=== PATIENT | female | born 1960 | race Caucasian/White ===

== ENCOUNTER 2016-06-05 19:06 | Inpatient (IN) ==
[2016-06-05] MEDS ORDERED: methylPREDNISolone 125 MG/2 ML VIAL IVP ONE (19:15)
[2016-06-05] MEDS ORDERED: Ipratropium/Albuterol Neb 3 ML IH ONE (19:15)
--- NOTE | 2016-06-05 19:19 | Emergency Department Note ---
Disposition Clinical Impression: Acute exacerbation of chronic obstructive airways disease Sepsis Qualifiers: Sepsis type: sepsis due to unspecified organism Qualified Code(s): A41.9 - Sepsis, unspecified organism Disposition: Admitted As Inpatient Condition: Fair SOB HPI - General Chief Complaint: ED Shortness of Breath/Dyspnea Stated Complaint: short of breath Time Seen by Provider: 06/05/16 19:15 Source: patient, family, EMS Mode of arrival: EMS Limitations: no limitations Nursing Notes Reviewed: Yes Vital Signs Reviewed: Yes - History of Present Illness 55-year-old female with a history COPD comes in with a one-week history of increasing shortness of breath. Pt Subjective Complaint: shortness of breath Onset (ago): week(s) Context: recent illness (1) Severity: moderate Consistency/Duration: constant Improves with: oxygen Worsens with: exertion Known history of: COPD Associated symptoms: Reports: fever, cough, wheezing Treatment prior to arrival: oxygen, bronchodilator Cough present: Yes Cough Description: Involuntary Cough Frequency: Intermittent - Related Data Home Medications Medication Instructions Recorded Confirmed Alprazolam [Xanax 1 MG Tablet] 1 mg PO TID 06/05/16 06/05/16 Aripiprazole [Abilify] 5 mg PO DAILY 06/05/16 06/05/16 Atorvastatin [Lipitor] 40 mg PO HS 06/05/16 06/05/16 Budesonide/Formoterol 160/4.5 2 puff IH BIDR 06/05/16 06/05/16 [Symbicort 160/4.5] CloNIDine HCl 0.1 mg PO DAILY PRN 06/05/16 06/05/16 Fluticasone/Vilanterol [Breo 1 each IH DAILY 06/05/16 06/05/16 Ellipta 100-25 Mcg INH] HYDROcodone/Acet 7.5/325 mg [Baird 1 tab PO TID PRN 06/05/16 06/05/16 7.5-325 mg] Lisinopril/Hydrochlorothiazide 1 each PO DAILY 06/05/16 06/05/16 [Zestoretic 20-12.5 mg Tablet] Metoprolol [Lopressor] 25 mg PO BID 06/05/16 06/05/16 Paroxetine [Paxil] 30 mg PO DAILY 06/05/16 06/05/16 Allergies Allergy/AdvReac Type Severity Reaction Status Date / Time No Known Allergies Allergy Verified 10/09/15 18:12 Constitutional: Denies: fever, chills, weakness, weight change Eyes: Denies: eye pain, eye discharge, vision change ENT ED: Denies: ear pain, throat pain, dental pain, hearing loss, epistaxis, congestion, dysphagia Cardiovascular: Denies: chest pain, palpitations, dyspnea on exertion, edema, syncope Respiratory: Reports: cough, wheezes. Denies: dyspnea, hemoptysis, stridor Gastrointestinal: Denies: abdominal pain, nausea, vomiting, diarrhea, constipation, hematemesis, melena, hematochezia Genitourinary: Denies: dysuria, frequency, hematuria, discharge Musculoskeletal: Denies: back pain, neck pain, arthralgia, myalgia Integumentary: Denies: rash, abrasion, lesions Neurological: Denies: headache, weakness, numbness, paresthesias, confusion, abnormal gait, vertigo Psychiatric: Denies: anxiety, depression, suicidal thoughts, homicidal thoughts , auditory hallucinations, visual hallucinations Endocrine: Denies: fatigue Hematological/Lymphatic: Denies: easy bleeding, easy bruising Allergic/Immunologic: Denies: facial swelling, urticaria Past Medical History - Past Medical History Medical history: Reports: COPD, hypertension Psychiatric history: Reports: no psych history - Social History Smoking Status: Former smoker Smokeless Tobacco Status: No Alcohol use: Reports: none Drug use: Reports: none Physical Exam - General Limitations: no limitations General appearance: alert, in no apparent distress - Head Head exam: atraumatic, normocephalic, normal inspection - Eye Eye exam: Present: normal appearance, PERRL, EOMI - ENT ENT exam: normal exam, normal oropharynx, mucous membranes moist - Neck Neck exam: Present: normal inspection, full ROM, trachea midline - Chest Chest inspection: Present: normal inspection, symmetric chest wall rise - Respiratory Respiratory exam: Present: normal lung sounds bilaterally - Cardiovascular Cardiovascular exam: Present: regular rate, normal rhythm, normal heart sounds - Abdominal Exam Abdominal exam: Present: soft, Non-Tender. Absent: tenderness, distention, guarding, rebound, rigidity - Extremities Exam Extremities exam: Present: normal inspection, full ROM. Absent: tenderness, pedal edema - Expanded Lower Extremity Exam Neurovascular/Tendon exam: Absent: motor deficit, sensory deficit, tendon deficit Gait: observed and normal - Back Exam Back exam: Present: normal inspection, full ROM. Absent: tenderness - Neurological Exam Neurological exam: Present: alert, oriented X3 - Psychiatric Psychiatric exam: Present: normal affect, normal mood - Skin Skin exam: Present: warm, dry, intact, normal color Course Vital Signs Temperature 98.9 F 06/05/16 19:08 Pulse Rate 91 06/05/16 19:08 Respiratory Rate 20 06/05/16 19:08 Blood Pressure 83/42 06/05/16 19:08 O2 Sat by Pulse Oximetry 96 06/05/16 19:08 Temperature 98.1 F 06/06/16 07:00 Pulse Rate 53 06/06/16 10:12 Respiratory Rate 18 06/06/16 10:12 Blood Pressure 94/54 06/06/16 10:12 O2 Sat by Pulse Oximetry 100 06/06/16 10:12 Oxygen Delivery Oxygen Delivery Bipap Shortness of Breath/Dyspnea - Lab Data Result diagrams: 06/05/16 19:48 06/06/16 04:37 Lab Results 06/05/16 06/05/16 06/05/16 Range/Units 19:46 19:48 19:48 WBC 34.7 H* (4.3-11.1) K/mcL RBC 3.76 L (3.82-4.97) M/mcL Hgb 11.0 L (11.5-15.4) g/dL Hct 34.6 L (35.3-44.9) % MCV 92.0 (83.0-100.0) fL MCH 29.3 (28.0-33.3) pg MCHC 31.8 (31.6-35.5) g/dL RDW 13.2 (11.5-14.5) % Plt Count 371 (140-400) K/mcL MPV 10.7 (9.4-12.4) fL Seg Neutrophils % 76.0 % Band Neutrophils % 14.0 H (0-4) % Lymphocytes % 2.0 % Monocytes % 8.0 % Neutrophils # 31.2 H (1.6-8.9) K/mcL Lymphocytes # 0.7 (0.6-4.6) K/mcL Monocytes # 2.8 H (0.0-1.3) K/mcL Platelet Estimate Normal (Normal) Large Platelets Present A (Not Present) Polychromasia 1+ A (Not Present) Basophilic Stippling 1+ A (Not Present) Microcytosis Present A (Not Present) PT (9.4-12.1) Seconds INR APTT (26.0-36.0) Seconds ABG pH 7.21 L (7.32-7.45) pH Units ABG pCO2 100 H* (35-45) mmHg ABG pO2 244 H (85-104) mmHg ABG HCO3 40.0 H (21-27) mEQ/L ABG Total CO2 43.1 H (20-26) mEq/L ABG O2 Saturation 100 H (95-98) % ABG Base Excess 9.3 H (-2.0 to 3.0) mEq/L Blood Gas Modality BIPAP Inspired O2 100 % Sodium 136 (136-145) mEq/L Potassium 3.6 (3.5-4.5) mEq/L Chloride 86 L (98-109) mEq/L Carbon Dioxide 36 H (19-29) mEq/L BUN 30 H (7-20) mg/dL Creatinine 1.94 H (0.57-1.11) mg/dL Est GFR ( Amer) 32 L (> 60) Est GFR (Non-Af Amer) 27 L (> 60) BUN/Creatinine Ratio 15 (6-26) Glucose 125 H (70-99) mg/dL POC Glucose (58-89) Calculated Osmolality 290 (280-300) Lactic Acid (0.5-2.2) mmol/L Calcium 10.4 (8.6-10.8) mg/dL Troponin I (0-0.03) ng/mL B-Natriuretic Peptide (0-100) pg/mL 06/05/16 06/05/16 06/05/16 Range/Units 19:48 19:48 19:48 WBC (4.3-11.1) K/mcL RBC (3.82-4.97) M/mcL Hgb (11.5-15.4) g/dL Hct (35.3-44.9) % MCV (83.0-100.0) fL MCH (28.0-33.3) pg MCHC (31.6-35.5) g/dL RDW (11.5-14.5) % Plt Count (140-400) K/mcL MPV (9.4-12.4) fL Seg Neutrophils % % Band Neutrophils % (0-4) % Lymphocytes % % Monocytes % % Neutrophils # (1.6-8.9) K/mcL Lymphocytes # (0.6-4.6) K/mcL Monocytes # (0.0-1.3) K/mcL Platelet Estimate (Normal) Large Platelets (Not Present) Polychromasia (Not Present) Basophilic Stippling (Not Present) Microcytosis (Not Present) PT (9.4-12.1) Seconds INR APTT (26.0-36.0) Seconds ABG pH (7.32-7.45) pH Units ABG pCO2 (35-45) mmHg ABG pO2 (85-104) mmHg ABG HCO3 (21-27) mEQ/L ABG Total CO2 (20-26) mEq/L ABG O2 Saturation (95-98) % ABG Base Excess (-2.0 to 3.0) mEq/L Blood Gas Modality Inspired O2 % Sodium (136-145) mEq/L Potassium (3.5-4.5) mEq/L Chloride (98-109) mEq/L Carbon Dioxide (19-29) mEq/L BUN (7-20) mg/dL Creatinine (0.57-1.11) mg/dL Est GFR ( Amer) (> 60) Est GFR (Non-Af Amer) (> 60) BUN/Creatinine Ratio (6-26) Glucose (70-99) mg/dL POC Glucose (58-89) Calculated Osmolality (280-300) Lactic Acid 1.3 (0.5-2.2) mmol/L Calcium (8.6-10.8) mg/dL Troponin I 0.06 H* (0-0.03) ng/mL B-Natriuretic Peptide 222 H (0-100) pg/mL 06/05/16 06/05/16 06/05/16 Range/Units 19:48 21:27 23:43 WBC (4.3-11.1) K/mcL RBC (3.82-4.97) M/mcL Hgb (11.5-15.4) g/dL Hct (35.3-44.9) % MCV (83.0-100.0) fL MCH (28.0-33.3) pg MCHC (31.6-35.5) g/dL RDW (11.5-14.5) % Plt Count (140-400) K/mcL MPV (9.4-12.4) fL Seg Neutrophils % % Band Neutrophils % (0-4) % Lymphocytes % % Monocytes % % Neutrophils # (1.6-8.9) K/mcL Lymphocytes # (0.6-4.6) K/mcL Monocytes # (0.0-1.3) K/mcL Platelet Estimate (Normal) Large Platelets (Not Present) Polychromasia (Not Present) Basophilic Stippling (Not Present) Microcytosis (Not Present) PT 12.7 H (9.4-12.1) Seconds INR 1.2 APTT 34.6 (26.0-36.0) Seconds ABG pH 7.22 L (7.32-7.45) pH Units ABG pCO2 79 H* D (35-45) mmHg ABG pO2 65 L (85-104) mmHg ABG HCO3 32.3 H (21-27) mEQ/L ABG Total CO2 34.7 H (20-26) mEq/L ABG O2 Saturation 88 L (95-98) % ABG Base Excess 3.3 H (-2.0 to 3.0) mEq/L Blood Gas Modality BIPAP Inspired O2 35 % Sodium (136-145) mEq/L Potassium (3.5-4.5) mEq/L Chloride (98-109) mEq/L Carbon Dioxide (19-29) mEq/L BUN (7-20) mg/dL Creatinine (0.57-1.11) mg/dL Est GFR ( Amer) (> 60) Est GFR (Non-Af Amer) (> 60) BUN/Creatinine Ratio (6-26) Glucose (70-99) mg/dL POC Glucose 153 H (58-89) Calculated Osmolality (280-300) Lactic Acid (0.5-2.2) mmol/L Calcium (8.6-10.8) mg/dL Troponin I (0-0.03) ng/mL B-Natriuretic Peptide (0-100) pg/mL 06/06/16 Range/Units 01:14 WBC (4.3-11.1) K/mcL RBC (3.82-4.97) M/mcL Hgb (11.5-15.4) g/dL Hct (35.3-44.9) % MCV (83.0-100.0) fL MCH (28.0-33.3) pg MCHC (31.6-35.5) g/dL RDW (11.5-14.5) % Plt Count (140-400) K/mcL MPV (9.4-12.4) fL Seg Neutrophils % % Band Neutrophils % (0-4) % Lymphocytes % % Monocytes % % Neutrophils # (1.6-8.9) K/mcL Lymphocytes # (0.6-4.6) K/mcL Monocytes # (0.0-1.3) K/mcL Platelet Estimate (Normal) Large Platelets (Not Present) Polychromasia (Not Present) Basophilic Stippling (Not Present) Microcytosis (Not Present) PT (9.4-12.1) Seconds INR APTT (26.0-36.0) Seconds ABG pH 7.20 L* (7.32-7.45) pH Units ABG pCO2 92 H* (35-45) mmHg ABG pO2 40 L* (85-104) mmHg ABG HCO3 36.0 H (21-27) mEQ/L ABG Total CO2 38.8 H (20-26) mEq/L ABG O2 Saturation 62 L (95-98) % ABG Base Excess 5.9 H (-2.0 to 3.0) mEq/L Blood Gas Modality BIPAP Inspired O2 35 % Sodium (136-145) mEq/L Potassium (3.5-4.5) mEq/L Chloride (98-109) mEq/L Carbon Dioxide (19-29) mEq/L BUN (7-20) mg/dL Creatinine (0.57-1.11) mg/dL Est GFR ( Amer) (> 60) Est GFR (Non-Af Amer) (> 60) BUN/Creatinine Ratio (6-26) Glucose (70-99) mg/dL POC Glucose (58-89) Calculated Osmolality (280-300) Lactic Acid (0.5-2.2) mmol/L Calcium (8.6-10.8) mg/dL Troponin I (0-0.03) ng/mL B-Natriuretic Peptide (0-100) pg/mL
[2016-06-05 19:54] LABS: ABG Base Excess 9.3 mEq/L (-2.0 to 3.0); ABG Oxygen Saturation 100 % (95-98); ABG PH 7.21 pH Units (7.32-7.45); ABG PO2 244 mmHg (85-104); ABG TCO2 43.1 mEq/L (20-26)
[2016-06-05 19:54] LABS: Hematocrit 34.6 % (35.3-44.9); Mean Corpuscular HGB Conc 31.8 g/dL (31.6-35.5); Mean Corpuscular Hemoglobin 29.3 pg (28.0-33.3); Mean Platelet Volume 10.7 fL (9.4-12.4); Platelet Count 371 K/mcL (140-400); Red Blood Count 3.76 M/mcL (3.82-4.97); Red Cell Distribution Width 13.2 % (11.5-14.5)
[2016-06-05] MEDS ORDERED: 0.9 % Sodium Chloride 1,000 ML IVC ONE ×2 (19:54→20:42)
[2016-06-05 19:56] LABS: Blood Gas FiO2 100 %
[2016-06-05 19:57] LABS: ABG PCO2 100 mmHg (35-45)
[2016-06-05 19:57] LABS: INR 1.2; Prothrombin Time 12.7 Seconds (9.4-12.1)
[2016-06-05 20:00] LABS: Activated Partial Thrombo Time 34.6 Seconds (26.0-36.0)
[2016-06-05 20:05] LABS: Calcium 10.4 mg/dL (8.6-10.8); Potassium 3.6 mEq/L (3.5-4.5)
[2016-06-05] MEDS ORDERED: Azithromycin 500 MG in D5% in Water 250 ML IVPB STA (20:14)
[2016-06-05 20:19] LABS: Lymphocytes # 0.7 K/mcL (0.6-4.6); Monocytes # 2.8 K/mcL (0.0-1.3); Neutrophils # 31.2 K/mcL (1.6-8.9)
[2016-06-05 20:20] LABS: Basophilic Stippling 1+ (Not Present); Large Platelets Present (Not Present); Microcytosis Present (Not Present); Platelet Estimate Normal (Normal)
[2016-06-05 20:21] LABS: Polychromasia 1+ (Not Present)
--- NOTE | 2016-06-05 20:30 | Emergency Department Note ---
Disposition Clinical Impression: Acute exacerbation of chronic obstructive airways disease Sepsis Qualifiers: Sepsis type: sepsis due to unspecified organism Qualified Code(s): A41.9 - Sepsis, unspecified organism Disposition: Admitted As Inpatient Condition: Fair SOB HPI - General Chief Complaint: ED Shortness of Breath/Dyspnea Stated Complaint: short of breath Time Seen by Provider: 06/05/16 19:15 Source: patient, family, EMS Mode of arrival: EMS Limitations: no limitations Nursing Notes Reviewed: Yes Vital Signs Reviewed: Yes - History of Present Illness 55-year-old female history of oxygen-dependent COPD who presents to the ER with chief complaint of shortness of breath. Patient arrives by private vehicle. Patient was found to be unstable presentation with her blood pressure in the 70/ 40 range. Patient was drowsy at this time but was alert with physical and verbal stimuli. She reports that she has been short of breath for 1 month. Patient wears oxygen continuously at home. She reports a cough with productive sputum. No fevers that she knows of at home. No chest pain. No recent hospitalizations. No other complaints. Pt Subjective Complaint: shortness of breath Onset (ago): month(s) (1) Context: recent illness Severity: moderate Consistency/Duration: constant Improves with: oxygen Worsens with: exertion Known history of: COPD Associated symptoms: Reports: fever, cough, wheezing Treatment prior to arrival: oxygen, bronchodilator Cough present: Yes Cough Description: Involuntary Cough Frequency: Intermittent Sputum production: Yes Sputum Amount: Small Sputum Color: Yellow - Related Data Home oxygen amount: 2 liters Home Medications Medication Instructions Recorded Confirmed Alprazolam [Xanax 1 MG Tablet] 1 mg PO TID 06/05/16 06/05/16 Aripiprazole [Abilify] 5 mg PO DAILY 06/05/16 06/05/16 Atorvastatin [Lipitor] 40 mg PO HS 06/05/16 06/05/16 Budesonide/Formoterol 160/4.5 2 puff IH BIDR 06/05/16 06/05/16 [Symbicort 160/4.5] CloNIDine HCl 0.1 mg PO DAILY PRN 06/05/16 06/05/16 Fluticasone/Vilanterol [Breo 1 each IH DAILY 06/05/16 06/05/16 Ellipta 100-25 Mcg INH] HYDROcodone/Acet 7.5/325 mg [Henderson 1 tab PO TID PRN 06/05/16 06/05/16 7.5-325 mg] Lisinopril/Hydrochlorothiazide 1 each PO DAILY 06/05/16 06/05/16 [Zestoretic 20-12.5 mg Tablet] Metoprolol [Lopressor] 25 mg PO BID 06/05/16 06/05/16 Paroxetine [Paxil] 30 mg PO DAILY 06/05/16 06/05/16 Allergies Allergy/AdvReac Type Severity Reaction Status Date / Time No Known Allergies Allergy Verified 10/09/15 18:12 All systems ED: reviewed and negative except as stated. Constitutional: Reports: fever, weakness Cardiovascular: Reports: dyspnea on exertion. Denies: chest pain Respiratory: Reports: cough, dyspnea, wheezes Gastrointestinal: Denies: abdominal pain, nausea, vomiting, diarrhea Genitourinary: Denies: dysuria Past Medical History - Past Medical History Attestation: Yes The following information was validated with the patient. Source: patient, old records reviewed Medical history: Reports: COPD, hypertension Surgical history: Reports: non-contributory Psychiatric history: Reports: no psych history - Social History Smoking Status: Former smoker Smokeless Tobacco Status: No Alcohol use: Reports: none Drug use: Reports: none Physical Exam - General Limitations: no limitations General appearance: alert, in distress - Head Head exam: atraumatic, normocephalic, normal inspection - Eye Eye exam: Present: normal appearance, EOMI - ENT ENT exam: normal exam - Neck Neck exam: Present: normal inspection - Chest Chest inspection: Present: normal inspection, symmetric chest wall rise - Respiratory Respiratory exam: Present: other (Course breath sounds bilaterally.) - Cardiovascular Cardiovascular exam: Present: regular rate, normal rhythm, normal heart sounds - Abdominal Exam Abdominal exam: Present: soft, Non-Tender. Absent: tenderness - Extremities Exam Extremities exam: Present: normal inspection, full ROM - Expanded Upper Extremity Exam Shoulder exam: Present: normal inspection, full ROM Arm exam: Present: normal inspection, full ROM Elbow exam: Present: normal inspection, full ROM Forearm/Wrist exam: Present: normal inspection, full ROM Hand exam: Present: normal inspection, full ROM - Expanded Lower Extremity Exam Hip/Pelvis exam: Present: normal inspection, full ROM Upper leg exam: Present: normal inspection, full ROM Knee exam: Present: normal inspection, full ROM Lower leg exam: Present: normal inspection, full ROM Ankle exam: Present: normal inspection, full ROM Foot/toe exam: Present: normal inspection, full ROM - Neurological Exam Neurological exam: Present: alert - Psychiatric Psychiatric exam: Present: normal affect, normal mood - Skin Skin exam: Present: warm, dry, intact, normal color Course Course Narrative: Patient seen and examined. Vital signs reviewed. She presents hypotensive. She has poor peripheral access. A peripheral IV was placed under ultrasound guidance emergently for access. Patient continued to have escalating decline in her hypotension so an emergent central line was placed after patient was consented. Patient currently receiving BiPAP, steroids and DuoNeb treatments. We will check EKG, chest x-ray, labs including blood cultures and lactate. Continue to monitor closely. - Reevaluation(s) Reevaluation #1: Patient's blood pressure 100/60 after first liter of fluids and with the second one running. We are covering her with the sepsis bundle for home and area associated infections. Continue to monitor closely. Reevaluation #2: Reevaluation. Her blood pressure has improved. Patient still awakens to verbal stimuli. Discussed with her that we would admit her to the hospital. Time: 22:09 Vital Signs Temperature 98.9 F 06/05/16 19:08 Pulse Rate 91 06/05/16 19:08 Respiratory Rate 20 06/05/16 19:08 Blood Pressure 83/42 06/05/16 19:08 O2 Sat by Pulse Oximetry 96 06/05/16 19:08 Temperature 98.9 F 06/05/16 19:08 Pulse Rate 76 06/05/16 22:49 Respiratory Rate 23 06/05/16 23:46 Blood Pressure 78/42 06/05/16 23:46 O2 Sat by Pulse Oximetry 96 06/05/16 22:49 Oxygen Delivery Oxygen Delivery Bipap Procedures - Central Line Placement Right IJ Central Line Inserted*: Yes Central Line Insertion: emergent Consent Obtained: written consent Procedural Pause: verify patient name and date of , timeout performed per policy, mathieu and assess the site, assemble equipment and verify supplies, perform hand hygiene Patient Placed on Monitor/Pulse Ox: Yes During the Procedure: clinician is wearing sterile gloves, cap, mask,& gown during insertion, sterile field and sterile technique are maintained, patient's face is covered with drape or mask and wearing a cap, everyone in room is wearing a mask Central Line Prep: Chlorhexidine scrub Prep the Procedure Site: apply chloraprep to the skin using a back and forth scrubbing motion, apply chloraprep for 30 seconds (upper body), 1-2 min ( femoral sites), drape the patient with a full body drape Local Anesthetic: lidocaine 1% Amount of anesthesia used (mL): 4 Ultrasound Used for Placement: Yes Central Line Lumen Inserted: triple Post Procedure: sutured in place, good blood return, all ports aspirated, flushed, capped, sterile dressing applied, guide wire removed and visualized Post Procedure X-Ray: tip of catheter in good position, no pneumothorax seen Patient Tolerated Procedure: well Shortness of Breath/Dyspnea - [facility] Narrative Medical decision making narrative: 55-year-old female presents to the ER due to dyspnea. Has been going on for months but worsened over the last few days. She was initially hypotensive here requiring central line placement due to poor peripheral access. Patient was placed on BiPAP. Patient is guarding her airway. Her EKG is sinus rhythm. Chest x-ray shows no acute abnormality as per radiology read. She does have profound leukocytosis of 34.7. She does also have a KI with a creatinine of 1.9. Troponin elevated at 0.06. Patient given 2 L normal saline. Also gave her vein and Zosyn for coverage. Blood cultures and lactate obtained which lactate was normal. Admitted to the ICU. - Lab Data Lab results reviewed: Yes I reviewed the patient's lab results. Result diagrams: 06/05/16 19:48 06/05/16 19:48 Lab Results 06/05/16 06/05/16 06/05/16 Range/Units 19:46 19:48 19:48 WBC 34.7 H* (4.3-11.1) K/mcL RBC 3.76 L (3.82-4.97) M/mcL Hgb 11.0 L (11.5-15.4) g/dL Hct 34.6 L (35.3-44.9) % MCV 92.0 (83.0-100.0) fL MCH 29.3 (28.0-33.3) pg MCHC 31.8 (31.6-35.5) g/dL RDW 13.2 (11.5-14.5) % Plt Count 371 (140-400) K/mcL MPV 10.7 (9.4-12.4) fL Seg Neutrophils % 76.0 % Band Neutrophils % 14.0 H (0-4) % Lymphocytes % 2.0 % Monocytes % 8.0 % Neutrophils # 31.2 H (1.6-8.9) K/mcL Lymphocytes # 0.7 (0.6-4.6) K/mcL Monocytes # 2.8 H (0.0-1.3) K/mcL Platelet Estimate Normal (Normal) Large Platelets Present A (Not Present) Polychromasia 1+ A (Not Present) Basophilic Stippling 1+ A (Not Present) Microcytosis Present A (Not Present) PT (9.4-12.1) Seconds INR APTT (26.0-36.0) Seconds ABG pH 7.21 L (7.32-7.45) pH Units ABG pCO2 100 H* (35-45) mmHg ABG pO2 244 H (85-104) mmHg ABG HCO3 40.0 H (21-27) mEQ/L ABG Total CO2 43.1 H (20-26) mEq/L ABG O2 Saturation 100 H (95-98) % ABG Base Excess 9.3 H (-2.0 to 3.0) mEq/L Blood Gas Modality BIPAP Inspired O2 100 % Sodium 136 (136-145) mEq/L Potassium 3.6 (3.5-4.5) mEq/L Chloride 86 L (98-109) mEq/L Carbon Dioxide 36 H (19-29) mEq/L BUN 30 H (7-20) mg/dL Creatinine 1.94 H (0.57-1.11) mg/dL Est GFR ( Amer) 32 L (> 60) Est GFR (Non-Af Amer) 27 L (> 60) BUN/Creatinine Ratio 15 (6-26) Glucose 125 H (70-99) mg/dL Calculated Osmolality 290 (280-300) Lactic Acid (0.5-2.2) mmol/L Calcium 10.4 (8.6-10.8) mg/dL Troponin I (0-0.03) ng/mL B-Natriuretic Peptide (0-100) pg/mL 06/05/16 06/05/16 06/05/16 Range/Units 19:48 19:48 19:48 WBC (4.3-11.1) K/mcL RBC (3.82-4.97) M/mcL Hgb (11.5-15.4) g/dL Hct (35.3-44.9) % MCV (83.0-100.0) fL MCH (28.0-33.3) pg MCHC (31.6-35.5) g/dL RDW (11.5-14.5) % Plt Count (140-400) K/mcL MPV (9.4-12.4) fL Seg Neutrophils % % Band Neutrophils % (0-4) % Lymphocytes % % Monocytes % % Neutrophils # (1.6-8.9) K/mcL Lymphocytes # (0.6-4.6) K/mcL Monocytes # (0.0-1.3) K/mcL Platelet Estimate (Normal) Large Platelets (Not Present) Polychromasia (Not Present) Basophilic Stippling (Not Present) Microcytosis (Not Present) PT (9.4-12.1) Seconds INR APTT (26.0-36.0) Seconds ABG pH (7.32-7.45) pH Units ABG pCO2 (35-45) mmHg ABG pO2 (85-104) mmHg ABG HCO3 (21-27) mEQ/L ABG Total CO2 (20-26) mEq/L ABG O2 Saturation (95-98) % ABG Base Excess (-2.0 to 3.0) mEq/L Blood Gas Modality Inspired O2 % Sodium (136-145) mEq/L Potassium (3.5-4.5) mEq/L Chloride (98-109) mEq/L Carbon Dioxide (19-29) mEq/L BUN (7-20) mg/dL Creatinine (0.57-1.11) mg/dL Est GFR ( Amer) (> 60) Est GFR (Non-Af Amer) (> 60) BUN/Creatinine Ratio (6-26) Glucose (70-99) mg/dL Calculated Osmolality (280-300) Lactic Acid 1.3 (0.5-2.2) mmol/L Calcium (8.6-10.8) mg/dL Troponin I 0.06 H* (0-0.03) ng/mL B-Natriuretic Peptide 222 H (0-100) pg/mL 06/05/16 06/05/16 Range/Units 19:48 21:27 WBC (4.3-11.1) K/mcL RBC (3.82-4.97) M/mcL Hgb (11.5-15.4) g/dL Hct (35.3-44.9) % MCV (83.0-100.0) fL MCH (28.0-33.3) pg MCHC (31.6-35.5) g/dL RDW (11.5-14.5) % Plt Count (140-400) K/mcL MPV (9.4-12.4) fL Seg Neutrophils % % Band Neutrophils % (0-4) % Lymphocytes % % Monocytes % % Neutrophils # (1.6-8.9) K/mcL Lymphocytes # (0.6-4.6) K/mcL Monocytes # (0.0-1.3) K/mcL Platelet Estimate (Normal) Large Platelets (Not Present) Polychromasia (Not Present) Basophilic Stippling (Not Present) Microcytosis (Not Present) PT 12.7 H (9.4-12.1) Seconds INR 1.2 APTT 34.6 (26.0-36.0) Seconds ABG pH 7.22 L (7.32-7.45) pH Units ABG pCO2 79 H* D (35-45) mmHg ABG pO2 65 L (85-104) mmHg ABG HCO3 32.3 H (21-27) mEQ/L ABG Total CO2 34.7 H (20-26) mEq/L ABG O2 Saturation 88 L (95-98) % ABG Base Excess 3.3 H (-2.0 to 3.0) mEq/L Blood Gas Modality BIPAP Inspired O2 35 % Sodium (136-145) mEq/L Potassium (3.5-4.5) mEq/L Chloride (98-109) mEq/L Carbon Dioxide (19-29) mEq/L BUN (7-20) mg/dL Creatinine (0.57-1.11) mg/dL Est GFR ( Amer) (> 60) Est GFR (Non-Af Amer) (> 60) BUN/Creatinine Ratio (6-26) Glucose (70-99) mg/dL Calculated Osmolality (280-300) Lactic Acid (0.5-2.2) mmol/L Calcium (8.6-10.8) mg/dL Troponin I (0-0.03) ng/mL B-Natriuretic Peptide (0-100) pg/mL - Radiology Data Radiology results reviewed: Yes I reviewed the patient's radiology results. Chest X-Ray 06/05/16 19:15 IMPRESSION: 1. Right internal jugular central venous catheter in proper position, tip overlying the SVC, no evidence of a pneumothorax. 2. No acute cardiopulmonary disease. D/ / 06/05/2016 20:45:54 Arcenio Camacho MD / Chrissie Wakefield Interpreting Provider: Arcenio Camacho MD - EKG Data EKG attestation: Yes I reviewed and interpreted this EKG. EKG results narrative: EKG demonstrates normal sinus rhythm with a rate of 87 bpm. Normal axis. AL interval 131 QRS duration [address] elevations or depressions. No acute ischemic findings. S.B.AVy - S.iNck.Farrukh Situation: Demographics, MOA Background: Presenting Complaint, Relevant PMH, Meds, & Allergies Assessment: Vital Signs, Course and respsone to treatment, Exam Concerns, Patient/Family Expectation, Pertinant Lab Results, Outstanding Labs Recommendation: Barrier(s) to disposition, Recommendation based on pending studies, treatments, or consults S.B.AVy Report Given to: Dr. Cami Werner Repor Time: 22:56 Attestation Statement - Attestation Attestation: For this encounter, I have reviewed the resident, REAL ESTATE OFFICE SUPERVISOR, or PA documentation, treatment plan, and medical decision making; and I have had face to face time with this patient. 55-year-old female presents with respiratory distress and altered mental status. Patient was hypotensive on initial evaluation with a systolic blood pressure of 75. A central line was placed as an emergent procedure to control her blood pressure and provide medications. Patient was able to provide some history regarding her case and presentation. She states she has had increased work of breathing over the past month. Initial CO2 level was 100 with a pH of 7.21. Patient was placed on BiPAP after initial evaluation. After 2 L of IV fluid the patient continued to be hypotensive. Levothyroid was ordered and the patient was admitted to the ICU. Patient started on vancomycin and Zosyn for treatment of possible sepsis with a significant leukocytosis. Patient's symptoms are likely secondary to severe COPD exacerbation. Unlikely PE with no history of blood clots and her length of symptoms.
[2016-06-05] MEDS ORDERED: Vancomycin 1,500 MG in D5% in Water 250 ML IVPB STA (20:41)
[2016-06-05] MEDS ORDERED: Piperacillin/Tazobactam 3.375 GM in D5% in Water (Mini-Bag+) 100 ML IVPB ONE (20:41)
[2016-06-05 21:38] LABS: ABG Base Excess 3.3 mEq/L (-2.0 to 3.0); ABG HCO3 32.3 mEQ/L (21-27); ABG Oxygen Saturation 88 % (95-98); ABG PH 7.22 pH Units (7.32-7.45); ABG PO2 65 mmHg (85-104); ABG TCO2 34.7 mEq/L (20-26)
[2016-06-05 21:40] LABS: Blood Gas FiO2 35 %
[2016-06-05 21:41] LABS: ABG PCO2 79 mmHg (35-45)
[2016-06-05] MEDS: Norepinephrine 4 MG in D5% in Water 250 ML IVC SCH (22:50)
[2016-06-05] MEDS ORDERED: 0.9 % Sodium Chloride 1,000 ML ONE (22:52)
[2016-06-06 01:43] LABS: ABG Base Excess 5.9 mEq/L (-2.0 to 3.0); ABG Oxygen Saturation 62 % (95-98); ABG TCO2 38.8 mEq/L (20-26); Blood Gas FiO2 35 %
[2016-06-06 01:45] LABS: ABG PCO2 92 mmHg (35-45); ABG PO2 40 mmHg (85-104)
[2016-06-06] MEDS ORDERED: D5% in Water 1,000 ML IVC PRN (02:41)
[2016-06-06] MEDS ORDERED: Ondansetron 4 MG/2 ML VIAL IVP PRN (02:41)
[2016-06-06] MEDS ORDERED: Dextrose Gel 15 GM PO PRN ×2 (02:41)
[2016-06-06] MEDS ORDERED: Naloxone 0.4 MG/ML INJ IVP PRN (02:41)
[2016-06-06] MEDS ORDERED: *HR* Dextrose 50 % in Water (Syg) 50 ML SYRINGE IVP PRN (02:41)
[2016-06-06] MEDS ORDERED: *HR* LORazepam 2 MG/ML VIAL IVP PRN (02:41)
--- NOTE | 2016-06-06 02:59 | Internal Med History&Physical ---
Date of Encounter: 06/06/16 Time of Encounter: 02:53 Assessment and Plan (1) Respiratory failure Current visit: Yes Status: Acute Patient with underlying COPD admitted due to acute on chronic respiratory failure. Currently mechanically ventilated. Possible right sided pneumonia, continue with antibiotics, follow cultures. Nebulizer therapy. Systemic steroids. Qualifiers: Chronicity: acute on chronic Respiratory failure complication: hypoxia and hypercapnia Qualified Code(s): J96.21 - Acute and chronic respiratory failure with hypoxia; J96.22 - Acute and chronic respiratory failure with hypercapnia (2) Septic shock Current visit: Yes Status: Acute On levophed now. Hypotension and leukocytosis with concomitant pneumonia in setting of patient with severe COPD. ICU care. Significant leukocytosis, unclear if the patient was on steroids prior to admission. Likely due to pneumonia, continue with antibiotics. Normal lactic acid levels, follow trend. Monitor electrolytes and kidney function tests. Needs vancomycin monitoring. Monitor urine output. (3) COPD exacerbation Current visit: Yes Status: Acute Management as above. continue with systemic steroids. (4) Acute kidney injury Current visit: Yes Status: Acute Likely induced by hypotension and shock. Will continue with fluids and will monitor renal function tests. Avoid nephrotoxic agents. Internal Medicine - H&P: HPI Chief complaint: sob Admitted From: Emergency Dept Plans for Post Hospital Care: Home History of present illness: Ms. Mcdonough is a 55 year old female with past medical of copd, ON LONG-TERM OXYGEN THERAPY. Presented to emergency department c/o SOB for about a month. She was drowsy and found to be hypotensive and with leukocytosis in the ED. Was given a dose of both zaosyn and vancomycin along with steroids. Was started on bipap and her ABG got better. For her hypotension she was given fluids and was started on levophed via central line. Lactic acid was 1.3. However she has not got better and her mentation declined along with her ph and her PCO2 increased. She was subsequently intubated in the intensive care unit. Past Med Surg Social Fam HX - Past Medical History Medical history: COPD, hypertension Psychiatric history: no psych history - Past Surgical History Surgical History: non-contributory - Social History Smoking Status: Former smoker Smokeless Tobacco Status: No Alcohol use: none Drug use: none Internal Medicine - H&P: Meds Alprazolam [Xanax 1 MG Tablet] 1 mg PO TID 06/05/16 [History] Aripiprazole [Abilify] 5 mg PO DAILY 06/05/16 [History] Atorvastatin [Lipitor] 40 mg PO HS 06/05/16 [History] Budesonide/Formoterol 160/4.5 [Symbicort 160/4.5] 2 puff IH BIDR 06/05/16 [ History] CloNIDine HCl 0.1 mg PO DAILY PRN 06/05/16 [History] Fluticasone/Vilanterol [Breo Ellipta 100-25 Mcg INH] 1 each IH DAILY 06/05/16 [ History] HYDROcodone/Acet 7.5/325 mg [Diagonal 7.5-325 mg] 1 tab PO TID PRN 06/05/16 [ History] Lisinopril/Hydrochlorothiazide [Zestoretic 20-12.5 mg Tablet] 1 each PO DAILY [History] Metoprolol [Lopressor] 25 mg PO BID 06/05/16 [History] Paroxetine [Paxil] 30 mg PO DAILY 06/05/16 [History] Allergies No Known Allergies Allergy (Verified 10/09/15 18:12) ROS unobtainable: due to mental status All Systems PM: A 10-system review of systems was performed and is negative for pertinent findings except as documented above in the HPI. - Constitutional Vitals: Temp Pulse Resp BP Pulse Ox 97.8 F 74 26 109/52 92 L 06/05/16 23:35 06/06/16 01:05 06/06/16 01:05 06/06/16 01:05 06/06/16 01:05 General appearance: Present: severe distress Exam: intubated, sedated. - Head Head exam: Present: atraumatic, normocephalic - Eye Eye exam: Present: PERRL, conjuntiva pink, sclera anicteric Pupils: Present: PERRL - Neck Neck exam general surgery: Present: supple, trachea midline. Absent: lymphadenopathy - Respiratory Respiratory exam: Present: decreased breath sounds, wheezes. Absent: accessory muscle use, rales, rhonchi - Cardiovascular Cardiovascular exam: Present: RRR, +S1, +S2. Absent: diastolic murmur, gallop, rubs, systolic murmur - GI/Abdominal GI/Abdominal exam: Present: normal bowel sounds, soft, no peritoneal signs. Absent: distended, tenderness - Extremities Exam Extremities exam: Present: warm, radial pulses palpable and symetrical. Absent : calf tenderness, cyanotic, pedal edema - Neurological Exam Neurological exam: Present: no focal deficits. Absent: pronater drift, facial droop, speech deficit - Skin Skin exam: Present: dry, intact Internal Med - H&P Results - Labs CBC & Chem 7: 06/05/16 19:48 06/05/16 19:48 - ABG Interpretation ABG results: 06/06/16 01:14 ABG pH 7.20 L* ABG pCO2 92 H* ABG pO2 40 L* ABG HCO3 36.0 H ABG Total CO2 38.8 H ABG O2 Saturation 62 L ABG Base Excess 5.9 H
[2016-06-06] MEDS ORDERED: Vancomycin (wt based) 1,000 MG VIAL IVPB SCH (03:00)
[2016-06-06] MEDS: FentaNYL (PF) 1,000 MCG in 0.9 % Sodium Chloride 80 ML IVC SCH ×3 (03:07→19:30)
[2016-06-06] MEDS: 0.9 % Sodium Chloride 1,000 ML IVC SCH ×2 (03:09→10:30)
[2016-06-06 04:40] LABS: ABG Base Excess 4.6 mEq/L (-2.0 to 3.0); ABG HCO3 33.4 mEQ/L (21-27); ABG Oxygen Saturation 100 % (95-98); ABG PH 7.24 pH Units (7.32-7.45); ABG PO2 385 mmHg (85-104); ABG TCO2 35.8 mEq/L (20-26)
[2016-06-06 04:49] LABS: ABG PCO2 78 mmHg (35-45); Blood Gas FiO2 70 %
[2016-06-06] MEDS ORDERED: Ipratropium/Albuterol Neb 3 ML IH SCH (05:00)
[2016-06-06 05:21] LABS: Albumin 2.3 g/dL (3.5-5.0); Albumin/Globulin Ratio 0.6 (1.1-2.2); Bilirubin,Total 0.5 mg/dL (0.2-1.2); Calcium 8.9 mg/dL (8.6-10.8); Globulin 4.1 g/dL (2.4-3.5); Potassium 3.6 mEq/L (3.5-4.5); Total Protein 6.4 g/dL (6.0-8.3)
[2016-06-06] MEDS: *HR* Heparin 5,000 UNIT/ML VIAL SQ SCH ×2 (05:49→17:19)
[2016-06-06] MEDS: Insulin LISPRO 300 UNITS/3 ML VIAL SQ SCH ×3 (06:23→18:29)
[2016-06-06] MEDS ORDERED: Magnesium Sulfate 2 GM in D5% in Water 100 ML IVPB ONE (07:30)
[2016-06-06 08:08] LABS: ABG Base Excess 4.6 mEq/L (-2.0 to 3.0); ABG HCO3 32.6 mEQ/L (21-27); ABG Oxygen Saturation 96 % (95-98); ABG PH 7.27 pH Units (7.32-7.45); ABG PO2 93 mmHg (85-104); ABG TCO2 34.8 mEq/L (20-26)
[2016-06-06 08:10] LABS: Blood Gas FiO2 30 %
[2016-06-06 08:11] LABS: ABG PCO2 71 mmHg (35-45)
[2016-06-06] MEDS: Ipratropium/Albuterol Neb 3 ML IH PRN ×3 (08:21→15:36)
[2016-06-06] MEDS ORDERED: *HR* Midazolam HCl 5 MG/5 ML VIAL IVP ONE (08:25)
[2016-06-06] MEDS ORDERED: *HR* Succinylcholine 200 MG/10 ML VIAL IVP ONE (08:25)
[2016-06-06] MEDS ORDERED: *HR* Midazolam HCl 2 MG/2 ML VIAL IV ONE (08:25)
[2016-06-06] MEDS ORDERED: *HR* Etomidate 20 MG/10 ML AMPUL IVP ONE (08:25)
[2016-06-06] MEDS ORDERED: Calcium Gluconate 1,000 MG in D5% in Water 100 ML IVPB PRN (08:33)
--- NOTE | 2016-06-06 08:55 | Pulmonology Consult Note ---
<Marcy Huffman - Last Filed: 06/06/16 11:39> Date of Encounter: 06/06/16 Time of Encounter: 09:25 Assessment and Plan (1) Septic shock Current Visit: Yes Status: Acute Patient presents emergency last night with shortness of breath 1 month and was found to be hypotensive. She was given approximately 3 L of fluid with no response. She had a right IJ placed and was placed on Levothroid. She has been maintaining a map of 65 on the Levothroid. His morning we had increased her Levophed to 5 to maintain his map. She is currently intubated for respiratory distress due to right middle lobe pneumonia and COPD exacerbation. Her initial white blood cell count was 34.7. Her lactate has decreased to 0.8 from 1.3. Her troponins had a spike of 0.06 and are now trending down at 0.04. Patient had a negative nasal flu swab. She had a negative urine Legionella and strep pneumo antigen. echo ( 06/06):LVEF 65% EKG: NSR Plan: Sedation with Versed and fentanyl Patient intubated and on ventilator Levofed to maintain a map of 65 Prednisone 40 mg every 8 Antibiotics: Levaquin, Zosyn RIP panel DVT prophylaxis: Heparin every 12 GI prophylaxis: Protonix 40 daily (2) Respiratory failure Current Visit: Yes Status: Acute Patient currently intubated and sedated and on the ventilator. Plan as above Qualifiers: Chronicity: acute on chronic Respiratory failure complication: hypoxia and hypercapnia Qualified Code(s): J96.21 - Acute and chronic respiratory failure with hypoxia; J96.22 - Acute and chronic respiratory failure with hypercapnia (3) Pneumonia Current Visit: Yes Status: Acute Right middle lobe pneumonia. Plan: Zosyn Levaquin Prednisone 40 mg every 8 Continue to monitor Qualifiers: Pneumonia type: due to unspecified organism Laterality: right Lung location: middle lobe of lung Qualified Code(s): J18.1 - Lobar pneumonia, unspecified organism (4) Acute exacerbation of chronic obstructive airways disease Current Visit: Yes Status: Acute O2 dependent at home. Patient's currently intubated and sedated. Overlying pneumonia over COPD. Plan as above. (5) Acute kidney injury Current Visit: Yes Status: Acute Patient has received approximately 3 L of fluids. Patient is making urine that is clear yellow. Plan: Strict I's and O's We will continue to monitor. (6) DVT prophylaxis Current Visit: Yes Status: Acute Heparin 5000 units every 12. History of Present Illness Consult date: 06/06/16 Requesting physician: Jose Miguel Almanza History of present illness: Patient was seen in the emergency department last night for a 1 month history of shortness of breath. Patient does have a history of COPD and is O2 dependent at home. She was found to be hypotensive with elevated white count of 34.7 on the emergency department. A right IJ was placed and patient was placed on Levophed. She was also placed on BiPAP for her respiratory distress. Subsequently when she was moved to the ICU she was electively intubated. She is on Levophed at 5 mg. This had to be increased this morning due to hypotension. She is sedated with fentanyl and Versed. She has received approximately 3 L of fluid. She has an ejection fraction of 65%. Her creatinine is increased at 1.63. Her GFR is decreased at 33. On her chest x- ray appears as she has a right middle lobe pneumonia. Patient is arousable on the sedation that she is on. She is not breathing over the vent. Her lung sounds are clear on inspiration but have rhonchi throughout on expiration. We will continue to treat patients pneumonia with Zosyn. We will also discontinue the vancomycin and add Levaquin. We will continue the steroids. Past Med Surg Social Fam HX - Past Medical History Medical history: COPD, hypertension Psychiatric history: no psych history - Past Surgical History Surgical History: non-contributory - Social History Smoking Status: Former smoker Smokeless Tobacco Status: No Alcohol use: none Drug use: none Medications and Allergies Alprazolam [Xanax 1 MG Tablet] 1 mg PO TID 06/05/16 [History] Aripiprazole [Abilify] 5 mg PO DAILY 06/05/16 [History] Atorvastatin [Lipitor] 40 mg PO HS 06/05/16 [History] Budesonide/Formoterol 160/4.5 [Symbicort 160/4.5] 2 puff IH BIDR 06/05/16 [ History] CloNIDine HCl 0.1 mg PO DAILY PRN 06/05/16 [History] Fluticasone/Vilanterol [Breo Ellipta 100-25 Mcg INH] 1 each IH DAILY 06/05/16 [ History] HYDROcodone/Acet 7.5/325 mg [[place] 7.5-325 mg] 1 tab PO TID PRN 06/05/16 [ History] Lisinopril/Hydrochlorothiazide [Zestoretic 20-12.5 mg Tablet] 1 each PO DAILY [History] Metoprolol [Lopressor] 25 mg PO BID 06/05/16 [History] Paroxetine [Paxil] 30 mg PO DAILY 06/05/16 [History] Allergies No Known Allergies Allergy (Verified 10/09/15 18:12) ROS unobtainable: due to endotracheal tube All Systems: A 10-system review of systems was performed and is negative for pertinent findings except as documented above in the HPI. Physical Examination Vital Signs: Vital Signs, Last 4 Hours Temp Pulse Resp BP Pulse Ox 06/06/16 08:24 18 65/35 100 06/06/16 07:42 18 70/44 100 06/06/16 07:00 98.1 F 06/06/16 06:00 62 14 102/62 100 06/06/16 05:00 98.1 F 52 14 118/67 100 General appearance: agitated (When aroused from sleep. Otherwise sedated and calm.) Eyes: nonicteric ENT: oropharynx moist Neck: supple, no lymphadenopathy, no JVD Effort: other (Assisted on the ventilator) Inspection: normal Auscultation: bilateral: clear (Inspiration), rhonchi (Throughout on exhalation) Cardiovascular: regular rate and rhythm Gastrointestinal: normoactive bowel sounds, soft, non-distended Integumentary: normal Extremities: no cyanosis, no edema, no clubbing, pink and warm, pulses normal, no ischemia or petechiae Musculoskeletal: no deformities Ventilator Settings Ventilator Settings: Ventilator Settings, Last 8 Hours Ventilator Mode A/C Ventilator Mode A/C Ventilator Mode A/C Ventilator Mode A/C Ventilator Mode A/C Ventilator Mode A/C Ventilator Mode A/C Ventilator Mode A/C Ventilator Tidal Volume 430 Setting Ventilator Tidal Volume 500 Setting Ventilator Tidal Volume 500 Setting Ventilator Tidal Volume 500 Setting Ventilator Tidal Volume 500 Setting Ventilator Tidal Volume 500 Setting Ventilator Tidal Volume 500 Setting Ventilator Tidal Volume 500 Setting Ventilator Respiratory Rate 18 Setting Ventilator Respiratory Rate 14 Setting Ventilator Respiratory Rate 14 Setting Ventilator Respiratory Rate 14 Setting Ventilator Respiratory Rate 14 Setting Ventilator Respiratory Rate 14 Setting Ventilator Respiratory Rate 14 Setting Ventilator Respiratory Rate 14 Setting Actual Respiratory Rate 18 Actual Respiratory Rate 14 Actual Respiratory Rate 14 Actual Respiratory Rate 14 Actual Respiratory Rate 14 Actual Respiratory Rate 14 Actual Respiratory Rate 18 Positive End Expiratory 5 Pressure Positive End Expiratory 5 Pressure Positive End Expiratory 5 Pressure Positive End Expiratory 5 Pressure Positive End Expiratory 5 Pressure Positive End Expiratory 5 Pressure Positive End Expiratory 5 Pressure Positive End Expiratory 5 Pressure Peak Inspiratory Airway 34 Pressure Peak Inspiratory Airway 40 Pressure Peak Inspiratory Airway 38 Pressure Peak Inspiratory Airway 50 Pressure Peak Inspiratory Airway 39 Pressure Peak Inspiratory Airway 38 Pressure Peak Inspiratory Airway 40 Pressure Results - Laboratory Findings CBC and BMP: 06/05/16 19:48 06/06/16 04:37 ABG ABG pH 7.27 pH Units (7.32-7.45) L 06/06/16 07:47 ABG pCO2 71 mmHg (35-45) H* 06/06/16 07:47 ABG pO2 93 mmHg (85-104) 06/06/16 07:47 ABG O2 Saturation 96 % (95-98) 06/06/16 07:47 PT/INR, D-dimer PT 12.7 Seconds (9.4-12.1) H 06/05/16 19:48 Abnormal lab findings: Abnormal lab results WBC 34.7 K/mcL (4.3-11.1) H* 06/05/16 19:48 RBC 3.76 M/mcL (3.82-4.97) L 06/05/16 19:48 Hgb 11.0 g/dL (11.5-15.4) L 06/05/16 19:48 Hct 34.6 % (35.3-44.9) L 06/05/16 19:48 Band Neutrophils % 14.0 % (0-4) H 06/05/16 19:48 Neutrophils # 31.2 K/mcL (1.6-8.9) H 06/05/16 19:48 Monocytes # 2.8 K/mcL (0.0-1.3) H 06/05/16 19:48 Large Platelets Present (Not Present) A 06/05/16 19:48 Polychromasia 1+ (Not Present) A 06/05/16 19:48 Basophilic Stippling 1+ (Not Present) A 06/05/16 19:48 Microcytosis Present (Not Present) A 06/05/16 19:48 PT 12.7 Seconds (9.4-12.1) H 06/05/16 19:48 ABG pH 7.27 pH Units (7.32-7.45) L 06/06/16 07:47 ABG pCO2 71 mmHg (35-45) H* 06/06/16 07:47 ABG HCO3 32.6 mEQ/L (21-27) H 06/06/16 07:47 ABG Total CO2 34.8 mEq/L (20-26) H 06/06/16 07:47 ABG Base Excess 4.6 mEq/L (-2.0 to 3.0) H 06/06/16 07:47 Chloride 96 mEq/L (98-109) L 06/06/16 04:37 Carbon Dioxide 31 mEq/L (19-29) H 06/06/16 04:37 BUN 33 mg/dL (7-20) H 06/06/16 04:37 Creatinine 1.63 mg/dL (0.57-1.11) H 06/06/16 04:37 Est GFR ( Amer) 39 (> 60) L 06/06/16 04:37 Est GFR (Non-Af Amer) 33 (> 60) L 06/06/16 04:37 Glucose 157 mg/dL (70-99) H 06/06/16 04:37 POC Glucose 153 (58-89) H 06/05/16 23:43 Magnesium 1.4 mg/dL (1.6-2.6) L 06/06/16 04:37 AST 36 Units/L (5-34) H 06/06/16 04:37 Alkaline Phosphatase 201 Units/L (38-126) H 06/06/16 04:37 Troponin I 0.06 ng/mL (0-0.03) H* 06/05/16 19:48 B-Natriuretic Peptide 222 pg/mL (0-100) H 06/05/16 19:48 Albumin 2.3 g/dL (3.5-5.0) L 06/06/16 04:37 Globulin 4.1 g/dL (2.4-3.5) H 06/06/16 04:37 Albumin/Globulin Ratio 0.6 (1.1-2.2) L 06/06/16 04:37 - Microbiology Findings Microbiology Findings: Microbiology, Last 48 Hours 06/06/16 04:45 Legionella Antigen - Final Urine,[place] Streptococcus pneumoniae Antigen (M - Final - Diagnostic Findings Additional studies: KUB X-Ray 06/06/16 02:35 IMPRESSION: 1. Nasogastric tube with its tip in the fundus of the stomach. D/ / Jovany Blake MD / Jovany Blake MD Interpreting Provider: Jovany Blake MD Chest X-Ray 06/06/16 02:39 IMPRESSION: 1. Endotracheal tube in satisfactory position. 2. Patchy right midlung density could represent developing pneumonia. D/ / Jovany Blake MD / Jovany Blake MD Interpreting Provider: Jovany Blake MD - Clinical Findings Intake & Output: Intake & Output 06/05/16 06/06/16 06/06/16 23:59 07:59 15:59 Intake Total 257.2 / 270.1 Output Total 500 / 500 Balance -242.8 / -229.9 Consult Discharge Plan - Plan Referrals: Javier Reyes MD [Primary Care Provider] - <Charanjit Jacob W - Last Filed: 06/06/16 13:38> Date of Encounter: 06/06/16 All Systems: A 10-system review of systems was performed and is negative for pertinent findings except as documented above in the HPI. Physical Examination Vital Signs: Vital Signs, Last 4 Hours Temp Pulse Resp BP Pulse Ox 06/06/16 08:24 18 65/35 100 06/06/16 07:42 18 70/44 100 06/06/16 07:00 98.1 F 06/06/16 06:00 62 14 102/62 100 Ventilator Settings Ventilator Settings: Ventilator Settings, Last 8 Hours Ventilator Mode A/C Ventilator Mode A/C Ventilator Mode A/C Ventilator Mode A/C Ventilator Mode A/C Ventilator Mode A/C Ventilator Mode A/C Ventilator Mode A/C Ventilator Tidal Volume 430 Setting Ventilator Tidal Volume 500 Setting Ventilator Tidal Volume 500 Setting Ventilator Tidal Volume 500 Setting Ventilator Tidal Volume 500 Setting Ventilator Tidal Volume 500 Setting Ventilator Tidal Volume 500 Setting Ventilator Tidal Volume 500 Setting Ventilator Respiratory Rate 18 Setting Ventilator Respiratory Rate 14 Setting Ventilator Respiratory Rate 14 Setting Ventilator Respiratory Rate 14 Setting Ventilator Respiratory Rate 14 Setting Ventilator Respiratory Rate 14 Setting Ventilator Respiratory Rate 14 Setting Ventilator Respiratory Rate 14 Setting Actual Respiratory Rate 18 Actual Respiratory Rate 14 Actual Respiratory Rate 14 Actual Respiratory Rate 14 Actual Respiratory Rate 14 Actual Respiratory Rate 14 Actual Respiratory Rate 18 Positive End Expiratory 5 Pressure Positive End Expiratory 5 Pressure Positive End Expiratory 5 Pressure Positive End Expiratory 5 Pressure Positive End Expiratory 5 Pressure Positive End Expiratory 5 Pressure Positive End Expiratory 5 Pressure Positive End Expiratory 5 Pressure Peak Inspiratory Airway 34 Pressure Peak Inspiratory Airway 40 Pressure Peak Inspiratory Airway 38 Pressure Peak Inspiratory Airway 50 Pressure Peak Inspiratory Airway 39 Pressure Peak Inspiratory Airway 38 Pressure Peak Inspiratory Airway 40 Pressure Results - Laboratory Findings CBC and BMP: 06/06/16 12:55 06/06/16 04:37 ABG ABG pH 7.27 pH Units (7.32-7.45) L 06/06/16 07:47 ABG pCO2 71 mmHg (35-45) H* 06/06/16 07:47 ABG pO2 93 mmHg (85-104) 06/06/16 07:47 ABG O2 Saturation 96 % (95-98) 06/06/16 07:47 PT/INR, D-dimer PT 12.7 Seconds (9.4-12.1) H 06/05/16 19:48 Abnormal lab findings: Abnormal lab results WBC 34.7 K/mcL (4.3-11.1) H* 06/05/16 19:48 RBC 3.76 M/mcL (3.82-4.97) L 06/05/16 19:48 Hgb 11.0 g/dL (11.5-15.4) L 06/05/16 19:48 Hct 34.6 % (35.3-44.9) L 06/05/16 19:48 Band Neutrophils % 14.0 % (0-4) H 06/05/16 19:48 Neutrophils # 31.2 K/mcL (1.6-8.9) H 06/05/16 19:48 Monocytes # 2.8 K/mcL (0.0-1.3) H 06/05/16 19:48 Large Platelets Present (Not Present) A 06/05/16 19:48 Polychromasia 1+ (Not Present) A 06/05/16 19:48 Basophilic Stippling 1+ (Not Present) A 06/05/16 19:48 Microcytosis Present (Not Present) A 06/05/16 19:48 PT 12.7 Seconds (9.4-12.1) H 06/05/16 19:48 ABG pH 7.27 pH Units (7.32-7.45) L 06/06/16 07:47 ABG pCO2 71 mmHg (35-45) H* 06/06/16 07:47 ABG HCO3 32.6 mEQ/L (21-27) H 06/06/16 07:47 ABG Total CO2 34.8 mEq/L (20-26) H 06/06/16 07:47 ABG Base Excess 4.6 mEq/L (-2.0 to 3.0) H 06/06/16 07:47 Chloride 96 mEq/L (98-109) L 06/06/16 04:37 Carbon Dioxide 31 mEq/L (19-29) H 06/06/16 04:37 BUN 33 mg/dL (7-20) H 06/06/16 04:37 Creatinine 1.63 mg/dL (0.57-1.11) H 06/06/16 04:37 Est GFR ( Amer) 39 (> 60) L 06/06/16 04:37 Est GFR (Non-Af Amer) 33 (> 60) L 06/06/16 04:37 Glucose 157 mg/dL (70-99) H 06/06/16 04:37 POC Glucose 153 (58-89) H 06/05/16 23:43 Magnesium 1.4 mg/dL (1.6-2.6) L 06/06/16 04:37 AST 36 Units/L (5-34) H 06/06/16 04:37 Alkaline Phosphatase 201 Units/L (38-126) H 06/06/16 04:37 Troponin I 0.06 ng/mL (0-0.03) H* 06/05/16 19:48 B-Natriuretic Peptide 222 pg/mL (0-100) H 06/05/16 19:48 Albumin 2.3 g/dL (3.5-5.0) L 06/06/16 04:37 Globulin 4.1 g/dL (2.4-3.5) H 06/06/16 04:37 Albumin/Globulin Ratio 0.6 (1.1-2.2) L 06/06/16 04:37 - Microbiology Findings Microbiology Findings: Microbiology, Last 48 Hours 06/06/16 04:45 Legionella Antigen - Final Urine,[place] Streptococcus pneumoniae Antigen (M - Final - Clinical Findings Intake & Output: Intake & Output 06/05/16 06/06/16 06/06/16 23:59 07:59 15:59 Intake Total 257.2 / 270.1 Output Total 500 / 500 Balance -242.8 / -229.9 - Attending Attestation I examined this patient and my medical decision-making was reviewed with the METAL BURRER/PA/Advanced Practice Nurse/Resident Physician. I agree with the documented findings, disposition and treatment plan as described except to the extent set forth below. I spent 35min of Critical Care time with this patient. It involved decision making of high complexity to assess, manipulate, and support vital organ system failure and/or to prevent further life threatening deterioration of the patient' s condition. The time involved in the performance of separately reportable procedures was not counted toward critical care time. Patient seen and examined at bedside Labs, radiology, chart personally reviewed. All lines examined without evidence of infection. Neuropsych: Sedated on Vent. Arouses easily no focal deficit Goal TOMÁS = 2-3 Pulm: Hypoxic hypercapnic respiratory failure s/t COPD excerbation from possible PNA.On MV with acceptable Oxygenation but still impaired ventilation with highAcute on Chronic PEEK pressures s/t airways disease. Cont aggressive bronchodilators and IV steroids. Ok for permissive hypercapnea at present. wean Fio2 as possible to goal >88-92% Cards: NSTEMI likely demand. Trend trop. ECHO pending. cardiology consult per results of ECHO. Distributive shock s/t sepsis on Vasopressor. Goal MAP .60 FEN-GI: GI prophylaxis given Renal: mild natalie improving f/u UOP trend ID: Septic shock on ABx On ABx. cultures sent Check Resp Viral Panel Heme/Onc: DVT prohylaxis given Endo: glucose monitored. Integ/MSK: Skin care per ICU protocol CODE: Full
[2016-06-06] MEDS: Piperacillin/Tazobactam 3.375 GM in D5% in Water (Mini-Bag+) 100 ML IVPB SCH ×3 (09:21→23:16)
[2016-06-06] MEDS ORDERED: Aminoglycoside Consult 1 EACH MC ONE (09:22)
[2016-06-06] MEDS: Docusate Oral Soln 100 MG/10 ML UDC GTUBE SCH ×2 (09:22→20:18)
[2016-06-06] MEDS: MethylPREDNISolone 40 MG/ML VIAL IVP SCH ×3 (09:22→23:16)
[2016-06-06] MEDS: Pantoprazole 40 MG VIAL IVPB SCH (09:23)
--- NOTE | 2016-06-06 09:58 | ECHO - Doppler Report ---
Echocardiogram Name: Apolonia Mcdonough Date of Study: 06/06/2016 Date: 1960 Ht: 61.0 in Medical Record#: [id number] Age: 55 Wt: 142.0 lb Gender: Female BSA: 1.63 Order #: [id number] Location: [facility] Room #: [facility] Reading Physician: Bala Lucas MD, [facility] Account Review Specialist: Ivette Cavanaugh RDCS, RVT Ordering Physician: Charanjit Jacob MD Primary Physician: Javier Reyes MD Indications: NSTEMI, Shock Impressions: Normal LV systolic function, LVEF 65%. Normal right ventricular size and function. Mildly dilated left atrium. No significant valvular dysfunction. No evidence of pulmonary hypertension. Left Ventricular Wall Motion: Rest Echo Findings All wall segments showed normal motion. Findings: Study Quality * Technically sub-optimal due to clinical status (supine, on ventilator). ECG Findings * Sinus bradycardia. Left Ventricle * Normal LV systolic function, LVEF 65%. * Normal LV chamber size and wall thickness. * Indeterminate diastolic function. Right Ventricle * Normal right ventricular size and function. Left Atrium * Mildly dilated left atrium. Right Atrium * Normal right atrial size. Aorta * Normally sized aortic root. Pericardium * There is no pericardial effusion present. IVC * The IVC is mildly dilated. Patient on ventilator. Aortic Valve * Aortic valve not well visualized. Appears mildly sclerotic. * No aortic stenosis. * No aortic regurgitation. Mitral Valve * Mild mitral annular calcification. * No mitral stenosis. * Trace mitral regurgitation. Tricuspid Valve * Normal tricuspid valve structure. * No tricuspid stenosis. * Trace tricuspid regurgitation. * No evidence of pulmonary hypertension. Pulmonic Valve * Pulmonic valve not well visualized. * No pulmonic stenosis. * Trace pulmonic regurgitation. History Hypertension Measurements: BP: 102/ 62 2D Normal Values RVIDd: 3.20 cm IVSd: .80 cm 0.6 - 1.0 cm LVIDd: 4.40 cm 3.7 - 5.6 cm LVPWd: .80 cm 0.6 - 1.1 cm LVIDs: 3.00 cm 1.5 - 3.6 cm AO: 2.70 cm < 4.0 cm %FS: 31.80 cm >25 % LA volume: 60 Mitral Valve Peak E:.68 m/sec Peak A:.55 m/sec E/A Ratio:1.2 Tricuspid Valve TV Regurg Peak Grad: 23.00mmHg TV Regurg Peak Yonatan: 2.41m/sec Updated by Bala Lucas MD, [facility] on 06/06/2016 9:52:49 AM electronically signed on 06/06/2016 9:53:15 AM with status of Final Wall Motion Stringer: 1=Normal, 2=Hypokinesis, 3=Akinesis, 4=Dyskinesis, 5=Aneurysmal, 6=Hyperkinetic, X=Not Visualized (Blank)=Missing
[2016-06-06] MEDS ORDERED: Lacri-Lube 3.5 GM TUBE BOTH EYES PRN (11:12)
[2016-06-06] MEDS: Levofloxacin 750 MG/150 ML 750 MG/150 ML BAG IVPB SCH (11:22)
--- NOTE | 2016-06-06 11:59 | Electrocardiograph Report ---
[address] [place], [place] [address] Test Date: 2016-06-05 Pat Name: Apolonia Mcdonough Department: 103 Room: [facility] Gender: F [employer] Installer: GUCCI : 1960 Requested By: Arcadio Key Order Number: [id number] Reading MD: Sergey Mora MD Measurements Intervals [place] Rate: 87 P: 64 NC: 131 QRS: 62 QRSD: 85 T: 39 QT: 380 QTc: 424 Interpretive Statements SINUS RHYTHM LEFT ATRIAL ENLARGEMENT Electronically Signed On 06-06-2016 11:57:16 EDT by Sergey Mora MD
[2016-06-06 12:12] LABS: Adenovirus Not Detected (Not Detect); Bordetella Pertussis Not Detected (Not Detect); Chlamydophila pneumoniae Not Detected (Not Detect); Coronavirus 229E Not Detected (Not Detect); Coronavirus HKU1 Not Detected (Not Detect); Coronavirus NL63 Not Detected (Not Detect); Coronavirus OC43 Not Detected (Not Detect); Human Metapneumovirus Not Detected (Not Detect); Human Rhinovirus/Enterovirus Not Detected (Not Detect); Influenza A Subtype 2009 H1 Not Detected (Not Detect); Influenza A Untypeable Not Detected (Not Detect); Influenza B Not Detected (Not Detect); Mycoplasma pneumoniae Not Detected (Not Detect); Parainfluenza Virus 1 Not Detected (Not Detect); Parainfluenza Virus 2 Not Detected (Not Detect); Parainfluenza Virus 3 Not Detected (Not Detect); Parainfluenza Virus 4 Not Detected (Not Detect); Respiratory Syncytial Virus Not Detected (Not Detect)
[2016-06-06 13:01] LABS: Basophils % 0.1 %; Hematocrit 26.2 % (35.3-44.9); Immature Granulocytes % 0.4 % (0-4); Immature Platelets 5.6 % (1.1-6.1); Lymphocytes # 0.5 K/mcL (0.6-4.6); Lymphocytes % 2.1 %; Mean Corpuscular HGB Conc 31.3 g/dL (31.6-35.5); Mean Corpuscular Hemoglobin 29.2 pg (28.0-33.3); Mean Corpuscular Volume 93.2 fL (83.0-100.0); Mean Platelet Volume 10.6 fL (9.4-12.4); Monocytes # 0.3 K/mcL (0.0-1.3); Monocytes % 1.4 %; Platelet Count 302 K/mcL (140-400); Red Blood Count 2.81 M/mcL (3.82-4.97)
[2016-06-06 13:02] LABS: Hemoglobin 8.2 g/dL (11.5-15.4)
[2016-06-06 13:25] LABS: Platelet Estimate Normal (Normal)
[2016-06-06 13:26] LABS: Basophilic Stippling 1+ (Not Present); Large Platelets Present (Not Present)
[2016-06-06] MEDS ORDERED: 0.9 % Sodium Chloride 500 ML IVC ONE (14:03)
[2016-06-06] MEDS: Norepinephrine 4 MG in D5% in Water 250 ML IVC SCH (15:39)
[2016-06-06] MEDS: Lacri-Lube 3.5 GM TUBE BOTH EYES SCH ×4 (15:45→20:03)
[2016-06-06] MEDS: Chlorhexidine Rinse 15 ML MOUTHWASH MM SCH (20:18)
[2016-06-07] MEDS: Insulin LISPRO 300 UNITS/3 ML VIAL SQ SCH ×4 (01:19→18:16)
[2016-06-07] MEDS: FentaNYL (PF) 1,000 MCG in 0.9 % Sodium Chloride 80 ML IVC SCH ×2 (04:20→19:42)
[2016-06-07 04:21] LABS: Basophils % 0.1 %; Hematocrit 25.4 % (35.3-44.9); Hemoglobin 8.1 g/dL (11.5-15.4); Immature Granulocytes % 0.6 % (0-4); Lymphocytes # 0.6 K/mcL (0.6-4.6); Lymphocytes % 2.4 %; Mean Corpuscular HGB Conc 31.9 g/dL (31.6-35.5); Mean Corpuscular Hemoglobin 29.1 pg (28.0-33.3); Mean Corpuscular Volume 91.4 fL (83.0-100.0); Mean Platelet Volume 10.8 fL (9.4-12.4); Monocytes # 0.5 K/mcL (0.0-1.3); Monocytes % 2.2 %; Neutrophils # 21.7 K/mcL (1.6-8.9); Platelet Count 289 K/mcL (140-400); Red Blood Count 2.78 M/mcL (3.82-4.97); Red Cell Distribution Width 13.1 % (11.5-14.5); Segmented Neutrophils % 94.7 %
[2016-06-07] MEDS: Lacri-Lube 3.5 GM TUBE BOTH EYES SCH ×5 (04:29→19:53)
[2016-06-07 04:44] LABS: Platelet Estimate Normal (Normal)
[2016-06-07 04:46] LABS: BUN/Creatinine Ratio 26 (6-26); Blood Urea Nitrogen 24 mg/dL (7-20); Calcium 9.6 mg/dL (8.6-10.8); Carbon Dioxide 30 mEq/L (19-29); Chloride 100 mEq/L (98-109); Glucose 140 mg/dL (70-99); Magnesium 1.6 mg/dL (1.6-2.6); Osmolality,Calculated 296 (280-300); Sodium 140 mEq/L (136-145); eGFR For African Americans > 60 (> 60); eGFR For Non-African Americans > 60 (> 60)
[2016-06-07] MEDS: *HR* Heparin 5,000 UNIT/ML VIAL SQ SCH ×2 (04:52→17:12)
[2016-06-07 05:34] LABS: ABG Base Excess 9.8 mEq/L (-2.0 to 3.0); ABG HCO3 36.4 mEQ/L (21-27); ABG Oxygen Saturation 88 % (95-98); ABG PCO2 63 mmHg (35-45); ABG PH 7.37 pH Units (7.32-7.45); ABG PO2 57 mmHg (85-104); ABG TCO2 38.3 mEq/L (20-26)
[2016-06-07 05:35] LABS: Blood Gas FiO2 50 %
[2016-06-07] MEDS: Potassium Phosphate 44 MEQ in 0.9 % Sodium Chloride 250 ML IVPB PRN (05:54)
[2016-06-07] MEDS: Magnesium Sulfate 2 GM in D5% in Water 100 ML IVPB PRN (05:54)
--- NOTE | 2016-06-07 07:38 | Pulmonology Progress Note ---
<Charanjit Jacob W - Last Filed: 06/07/16 11:17> Date of Encounter: 06/07/16 Objective PUL Vital signs: Last Vital Signs Temp 98.7 F 06/06/16 23:29 Pulse 73 06/07/16 06:10 Resp 18 06/07/16 07:23 BP 114/79 06/07/16 06:10 Pulse Ox 100 06/07/16 07:23 Ventilator Settings Ventilator Settings: Ventilator Settings, Last 8 Hours Ventilator Mode A/C Ventilator Mode A/C Ventilator Mode A/C Ventilator Mode A/C Ventilator Mode A/C Ventilator Mode A/C Ventilator Mode A/C Ventilator Mode A/C Ventilator Mode A/C Ventilator Mode A/C Ventilator Mode A/C Ventilator Mode A/C Ventilator Tidal Volume 430 Setting Ventilator Tidal Volume 430 Setting Ventilator Tidal Volume 430 Setting Ventilator Tidal Volume 430 Setting Ventilator Tidal Volume 430 Setting Ventilator Tidal Volume 430 Setting Ventilator Tidal Volume 430 Setting Ventilator Tidal Volume 430 Setting Ventilator Tidal Volume 430 Setting Ventilator Tidal Volume 430 Setting Ventilator Tidal Volume 430 Setting Ventilator Tidal Volume 430 Setting Ventilator Respiratory Rate 18 Setting Ventilator Respiratory Rate 18 Setting Ventilator Respiratory Rate 18 Setting Ventilator Respiratory Rate 18 Setting Ventilator Respiratory Rate 18 Setting Ventilator Respiratory Rate 18 Setting Ventilator Respiratory Rate 18 Setting Ventilator Respiratory Rate 18 Setting Ventilator Respiratory Rate 18 Setting Ventilator Respiratory Rate 18 Setting Ventilator Respiratory Rate 18 Setting Ventilator Respiratory Rate 18 Setting Actual Respiratory Rate 18 Actual Respiratory Rate 18 Actual Respiratory Rate 18 Actual Respiratory Rate 18 Actual Respiratory Rate 18 Actual Respiratory Rate 18 Actual Respiratory Rate 18 Actual Respiratory Rate 18 Actual Respiratory Rate 18 Actual Respiratory Rate 18 Actual Respiratory Rate 18 Positive End Expiratory 5 Pressure Positive End Expiratory 5 Pressure Positive End Expiratory 5 Pressure Positive End Expiratory 5 Pressure Positive End Expiratory 5 Pressure Positive End Expiratory 5 Pressure Positive End Expiratory 5 Pressure Positive End Expiratory 5 Pressure Positive End Expiratory 5 Pressure Positive End Expiratory 5 Pressure Positive End Expiratory 5 Pressure Positive End Expiratory 5 Pressure Peak Inspiratory Airway 45 Pressure Peak Inspiratory Airway 42 Pressure Peak Inspiratory Airway 46 Pressure Peak Inspiratory Airway 38 Pressure Peak Inspiratory Airway 41 Pressure Peak Inspiratory Airway 38 Pressure Peak Inspiratory Airway 40 Pressure Peak Inspiratory Airway 36 Pressure Peak Inspiratory Airway 34 Pressure Peak Inspiratory Airway 35 Pressure Peak Inspiratory Airway 37 Pressure Results - Laboratory Findings CBC and BMP: 06/07/16 03:55 06/07/16 03:55 ABG ABG pH 7.37 pH Units (7.32-7.45) 06/07/16 05:24 ABG pCO2 63 mmHg (35-45) H 06/07/16 05:24 ABG pO2 57 mmHg (85-104) L 06/07/16 05:24 ABG O2 Saturation 88 % (95-98) L 06/07/16 05:24 PT/INR, D-dimer PT 12.7 Seconds (9.4-12.1) H 06/05/16 19:48 Abnormal lab findings: Abnormal lab results WBC 22.9 K/mcL (4.3-11.1) H 06/07/16 03:55 RBC 2.78 M/mcL (3.82-4.97) L 06/07/16 03:55 Hgb 8.1 g/dL (11.5-15.4) L 06/07/16 03:55 Hct 25.4 % (35.3-44.9) L 06/07/16 03:55 Band Neutrophils % 14.0 % (0-4) H 06/05/16 19:48 Neutrophils # 21.7 K/mcL (1.6-8.9) H 06/07/16 03:55 Large Platelets Present (Not Present) A 06/06/16 12:55 Polychromasia 1+ (Not Present) A 06/05/16 19:48 Basophilic Stippling 1+ (Not Present) A 06/06/16 12:55 Microcytosis Present (Not Present) A 06/05/16 19:48 PT 12.7 Seconds (9.4-12.1) H 06/05/16 19:48 ABG pCO2 63 mmHg (35-45) H 06/07/16 05:24 ABG pO2 57 mmHg (85-104) L 06/07/16 05:24 ABG HCO3 36.4 mEQ/L (21-27) H 06/07/16 05:24 ABG Total CO2 38.3 mEq/L (20-26) H 06/07/16 05:24 ABG O2 Saturation 88 % (95-98) L 06/07/16 05:24 ABG Base Excess 9.8 mEq/L (-2.0 to 3.0) H 06/07/16 05:24 Potassium 3.0 mEq/L (3.5-4.5) L 06/07/16 03:55 Carbon Dioxide 30 mEq/L (19-29) H 06/07/16 03:55 BUN 24 mg/dL (7-20) H 06/07/16 03:55 Glucose 140 mg/dL (70-99) H 06/07/16 03:55 POC Glucose 130 (58-89) H 06/07/16 06:03 Phosphorus 2.0 mg/dL (2.3-4.7) L 06/07/16 03:55 AST 36 Units/L (5-34) H 06/06/16 04:37 Alkaline Phosphatase 201 Units/L (38-126) H 06/06/16 04:37 Troponin I 0.04 ng/mL (0-0.03) H* 06/06/16 10:35 B-Natriuretic Peptide 222 pg/mL (0-100) H 06/05/16 19:48 Albumin 2.3 g/dL (3.5-5.0) L 06/06/16 04:37 Globulin 4.1 g/dL (2.4-3.5) H 06/06/16 04:37 Albumin/Globulin Ratio 0.6 (1.1-2.2) L 06/06/16 04:37 - Microbiology Findings Microbiology Findings: Microbiology, Last 48 Hours 06/06/16 05:17 Sputum Culture - Preliminary Sputum 06/06/16 04:45 Legionella Antigen - Final Urine,[place] Streptococcus pneumoniae Antigen (M - Final - Clinical Findings Intake & Output: Intake & Output 06/06/16 06/07/16 06/07/16 23:59 07:59 15:59 Intake Total 379.9 / 379.9 345.7 / 345.7 Output Total 1200 / 1200 600 / 600 Balance -820.1 / -820.1 -254.3 / -254.3 Consult Discharge Plan - Plan Referrals: Javier Reyes MD [Primary Care Provider] - - Attending Attestation I examined this patient and my medical decision-making was reviewed with the [employer] E[employer]IPMENT REPAIRER/PA/Advanced Practice Nurse/Resident Physician. I agree with the documented findings, disposition and treatment plan as described except to the extent set forth below. Patient seen and examined at bedside Labs, radiology, chart personally reviewed. All lines examined without evidence of infection. Neuropsych: Generally awake and alert however without stimulation patient has episodes where she falls asleep and is unable to maintain respiratory rate. We are holding all [employer] depressant medications at this time this is probably in manifestation of use of benzodiazepines over the last 24 hours Pulm: Hypoxic hypercapnic respiratory failure s/t COPD excerbation from possible PNA.ready for spontaneous breathing trial when no longer as sleepy. Respiratory mechanics and Oxygenation have improved over the last 24 hours. Continue IV steroids and bronchodilators Cards: NSTEMI likely demand ischemia from hypoxia. Troponin has peaked and echocardiogram suggestive of focal wall motion abnormality FEN-GI: GI prophylaxis given Renal: mild natalie has normalized ID: Septic shock resolved continue antimicrobials pending cultures D escalated 48 hours to treat for commnity acquired pneumonia organisms Heme/Onc: DVT prohylaxis given Endo: glucose monitored. Integ/MSK: Skin care per ICU protocol CODE: Full <Marcy Huffman - Last Filed: 06/07/16 12:56> Date of Encounter: 06/07/16 Time of Encounter: 07:37 Assessment and Plan (1) Septic shock Current Visit: Yes Status: Acute Patient presented to the emergency department 2 nights ago with shortness of breath 1 month and was found to be hypotensive. She was given approximately 3 L of fluid with no response. She had a right IJ placed and was placed on Levothroid. She has been maintaining a map of 65 on the Levofed. She remained on Levophed throughout the day yesterday but was removed last night. She is currently intubated for respiratory distress due to right middle lobe pneumonia and COPD exacerbation. She has failed to CPAP trials today and her sedation has been turned off. She is only on pain management with fentanyl. Her initial white blood cell count was 34.7. Her lactate has decreased to 0.8 from 1.3. Her troponins had a spike of 0.06 and are now trending down at 0.04. Patient had a negative nasal flu swab. She had a negative urine Legionella and strep pneumo antigen. echo ( 06/06):LVEF 65% EKG: NSR RIP panel: Negative Plan: Fentanyl for pain management Patient intubated and on ventilator Prednisone 40 mg every 8 Antibiotics: Levaquin, Zosyn DVT prophylaxis: Heparin every 12 GI prophylaxis: Protonix 40 daily. CPAP trial tomorrow. (2) Respiratory failure Current Visit: Yes Status: Acute Patient currently intubated and on the ventilator. Versed is off. She is only on fentanyl for pain management. She has failed several CPAP trials today as she becomes apneic and goes to sleep. Plan as above Qualifiers: Chronicity: acute on chronic Respiratory failure complication: hypoxia and hypercapnia Qualified Code(s): J96.21 - Acute and chronic respiratory failure with hypoxia; J96.22 - Acute and chronic respiratory failure with hypercapnia (3) Pneumonia Current Visit: Yes Status: Acute Right middle lobe pneumonia. Plan: Zosyn Levaquin Prednisone 40 mg every 8 Continue to monitor Qualifiers: Pneumonia type: due to unspecified organism Laterality: right Lung location: middle lobe of lung Qualified Code(s): J18.1 - Lobar pneumonia, unspecified organism (4) Acute exacerbation of chronic obstructive airways disease Current Visit: Yes Status: Acute O2 dependent at home. Patient's currently intubated and on the ventilator. Overlying right middle lobe pneumonia, complicated by COPD. Plan as above. (5) Acute kidney injury Current Visit: Yes Status: Acute Creatinine is continuing to improve. Patient is continuing to make urine. Plan: Strict I's and O's We will continue to monitor (6) DVT prophylaxis Current Visit: Yes Status: Acute Heparin 5000 units every 12 Subjective Interval history: Patient had no problems overnight. She is still intubated and on fentanyl. She is off of levofed at this time. She is maintaining a map of 60-65 on her own. She has failed two CPAP trials today. She is off sedation. If patient does need sedation throughout the day we will add Precedex. Patient is arousable but appears tired. Her lung sounds are relatively clear. Her kidney function is improving. We will continue CPAP trials tomorrow. Objective PUL Vital signs: Last Vital Signs Temp 98.7 F 06/06/16 23:29 Pulse 73 06/07/16 06:10 Resp 18 06/07/16 07:23 BP 114/79 06/07/16 06:10 Pulse Ox 100 06/07/16 07:23 General appearance: no acute distress, other (Easily arousable but quickly goes back to sleep. Patient is still intubated and on fentanyl only.) Eyes: nonicteric ENT: oropharynx moist Neck: supple Effort: normal Auscultation: bilateral: clear Cardiovascular: regular rate and rhythm Gastrointestinal: normoactive bowel sounds, soft, non-tender, non-distended Integumentary: normal Extremities: no cyanosis, no edema, no clubbing, pink and warm, pulses normal Musculoskeletal: no deformities pupils equal and round, unable to assess due to mental status Ventilator Settings Ventilator Settings: Ventilator Settings, Last 8 Hours Ventilator Mode A/C Ventilator Mode A/C Ventilator Mode A/C Ventilator Mode A/C Ventilator Mode A/C Ventilator Mode A/C Ventilator Mode A/C Ventilator Mode A/C Ventilator Mode A/C Ventilator Mode A/C Ventilator Mode A/C Ventilator Mode A/C Ventilator Mode A/C Ventilator Tidal Volume 430 Setting Ventilator Tidal Volume 430 Setting Ventilator Tidal Volume 430 Setting Ventilator Tidal Volume 430 Setting Ventilator Tidal Volume 430 Setting Ventilator Tidal Volume 430 Setting Ventilator Tidal Volume 430 Setting Ventilator Tidal Volume 430 Setting Ventilator Tidal Volume 430 Setting Ventilator Tidal Volume 430 Setting Ventilator Tidal Volume 430 Setting Ventilator Tidal Volume 430 Setting Ventilator Tidal Volume 430 Setting Ventilator Respiratory Rate 18 Setting Ventilator Respiratory Rate 18 Setting Ventilator Respiratory Rate 18 Setting Ventilator Respiratory Rate 18 Setting Ventilator Respiratory Rate 18 Setting Ventilator Respiratory Rate 18 Setting Ventilator Respiratory Rate 18 Setting Ventilator Respiratory Rate 18 Setting Ventilator Respiratory Rate 18 Setting Ventilator Respiratory Rate 18 Setting Ventilator Respiratory Rate 18 Setting Ventilator Respiratory Rate 18 Setting Ventilator Respiratory Rate 18 Setting Actual Respiratory Rate 18 Actual Respiratory Rate 18 Actual Respiratory Rate 18 Actual Respiratory Rate 18 Actual Respiratory Rate 18 Actual Respiratory Rate 18 Actual Respiratory Rate 18 Actual Respiratory Rate 18 Actual Respiratory Rate 18 Actual Respiratory Rate 18 Actual Respiratory Rate 18 Actual Respiratory Rate 18 Positive End Expiratory 5 Pressure Positive End Expiratory 5 Pressure Positive End Expiratory 5 Pressure Positive End Expiratory 5 Pressure Positive End Expiratory 5 Pressure Positive End Expiratory 5 Pressure Positive End Expiratory 5 Pressure Positive End Expiratory 5 Pressure Positive End Expiratory 5 Pressure Positive End Expiratory 5 Pressure Positive End Expiratory 5 Pressure Positive End Expiratory 5 Pressure Positive End Expiratory 5 Pressure Peak Inspiratory Airway 45 Pressure Peak Inspiratory Airway 42 Pressure Peak Inspiratory Airway 46 Pressure Peak Inspiratory Airway 38 Pressure Peak Inspiratory Airway 41 Pressure Peak Inspiratory Airway 38 Pressure Peak Inspiratory Airway 40 Pressure Peak Inspiratory Airway 36 Pressure Peak Inspiratory Airway 34 Pressure Peak Inspiratory Airway 35 Pressure Peak Inspiratory Airway 37 Pressure Peak Inspiratory Airway 41 Pressure Results - Laboratory Findings CBC and BMP: 06/07/16 03:55 06/07/16 03:55 ABG ABG pH 7.37 pH Units (7.32-7.45) 06/07/16 05:24 ABG pCO2 63 mmHg (35-45) H 06/07/16 05:24 ABG pO2 57 mmHg (85-104) L 06/07/16 05:24 ABG O2 Saturation 88 % (95-98) L 06/07/16 05:24 PT/INR, D-dimer PT 12.7 Seconds (9.4-12.1) H 06/05/16 19:48 Abnormal lab findings: Abnormal lab results WBC 22.9 K/mcL (4.3-11.1) H 06/07/16 03:55 RBC 2.78 M/mcL (3.82-4.97) L 06/07/16 03:55 Hgb 8.1 g/dL (11.5-15.4) L 06/07/16 03:55 Hct 25.4 % (35.3-44.9) L 06/07/16 03:55 Band Neutrophils % 14.0 % (0-4) H 06/05/16 19:48 Neutrophils # 21.7 K/mcL (1.6-8.9) H 06/07/16 03:55 Large Platelets Present (Not Present) A 06/06/16 12:55 Polychromasia 1+ (Not Present) A 06/05/16 19:48 Basophilic Stippling 1+ (Not Present) A 06/06/16 12:55 Microcytosis Present (Not Present) A 06/05/16 19:48 PT 12.7 Seconds (9.4-12.1) H 06/05/16 19:48 ABG pCO2 63 mmHg (35-45) H 06/07/16 05:24 ABG pO2 57 mmHg (85-104) L 06/07/16 05:24 ABG HCO3 36.4 mEQ/L (21-27) H 06/07/16 05:24 ABG Total CO2 38.3 mEq/L (20-26) H 06/07/16 05:24 ABG O2 Saturation 88 % (95-98) L 06/07/16 05:24 ABG Base Excess 9.8 mEq/L (-2.0 to 3.0) H 06/07/16 05:24 Potassium 3.0 mEq/L (3.5-4.5) L 06/07/16 03:55 Carbon Dioxide 30 mEq/L (19-29) H 06/07/16 03:55 BUN 24 mg/dL (7-20) H 06/07/16 03:55 Glucose 140 mg/dL (70-99) H 06/07/16 03:55 POC Glucose 130 (58-89) H 06/07/16 06:03 Phosphorus 2.0 mg/dL (2.3-4.7) L 06/07/16 03:55 AST 36 Units/L (5-34) H 06/06/16 04:37 Alkaline Phosphatase 201 Units/L (38-126) H 06/06/16 04:37 Troponin I 0.04 ng/mL (0-0.03) H* 06/06/16 10:35 B-Natriuretic Peptide 222 pg/mL (0-100) H 06/05/16 19:48 Albumin 2.3 g/dL (3.5-5.0) L 06/06/16 04:37 Globulin 4.1 g/dL (2.4-3.5) H 06/06/16 04:37 Albumin/Globulin Ratio 0.6 (1.1-2.2) L 06/06/16 04:37 - Microbiology Findings Microbiology Findings: Microbiology, Last 48 Hours 06/06/16 05:17 Sputum Culture - Preliminary Sputum 06/06/16 04:45 Legionella Antigen - Final Urine,[place] Streptococcus pneumoniae Antigen (M - Final - Diagnostic Findings Additional studies: KUB X-Ray 06/06/16 02:35 IMPRESSION: 1. Nasogastric tube with its tip in the fundus of the stomach. D/ / Jovany Blake MD / Jovany Blake MD Interpreting Provider: Jovany Blake MD Chest X-Ray 06/07/16 07:36 IMPRESSION: Stable chest. D/ / 06/07/2016 08:12:31 Christopher Bob MD / chuck Interpreting Provider: Christopher Bob MD - Clinical Findings Intake & Output: Intake & Output 06/06/16 06/06/16 06/07/16 15:59 23:59 07:59 Intake Total 1579.9 / 1579.9 379.9 / 379.9 345.7 / 345.7 Output Total 100 / 100 1200 / 1200 600 / 600 Balance 1479.9 / 1479.9 -820.1 / -820.1 -254.3 / -254.3
[2016-06-07] MEDS: Docusate Oral Soln 100 MG/10 ML UDC GTUBE SCH ×2 (09:17→19:53)
[2016-06-07] MEDS: Chlorhexidine Rinse 15 ML MOUTHWASH MM SCH ×2 (09:17→19:53)
[2016-06-07] MEDS: Piperacillin/Tazobactam 3.375 GM in D5% in Water (Mini-Bag+) 100 ML IVPB SCH ×2 (09:18→16:45)
[2016-06-07] MEDS: MethylPREDNISolone 40 MG/ML VIAL IVP SCH ×2 (09:18→16:45)
[2016-06-07] MEDS: Pantoprazole 40 MG VIAL IVPB SCH (09:19)
[2016-06-07] MEDS: Ipratropium/Albuterol Neb 3 ML IH PRN (20:46)
[2016-06-08] MEDS: Piperacillin/Tazobactam 3.375 GM in D5% in Water (Mini-Bag+) 100 ML IVPB SCH ×2 (00:09→08:29)
[2016-06-08] MEDS: MethylPREDNISolone 40 MG/ML VIAL IVP SCH ×3 (00:09→17:15)
[2016-06-08] MEDS: Insulin LISPRO 300 UNITS/3 ML VIAL SQ SCH ×3 (00:10→11:28)
[2016-06-08] MEDS: Lacri-Lube 3.5 GM TUBE BOTH EYES SCH ×4 (00:11→11:24)
[2016-06-08] MEDS: FentaNYL (PF) 1,000 MCG in 0.9 % Sodium Chloride 80 ML IVC SCH ×2 (00:48→04:58)
[2016-06-08] MEDS: Ipratropium/Albuterol Neb 3 ML IH PRN ×2 (02:10→08:02)
[2016-06-08 04:25] LABS: Basophils % 0.1 %; Hematocrit 26.2 % (35.3-44.9); Immature Granulocytes % 0.9 % (0-4); Lymphocytes # 0.4 K/mcL (0.6-4.6); Mean Corpuscular HGB Conc 30.5 g/dL (31.6-35.5); Mean Corpuscular Hemoglobin 28.7 pg (28.0-33.3); Mean Corpuscular Volume 93.9 fL (83.0-100.0); Monocytes # 0.4 K/mcL (0.0-1.3); Monocytes % 2.5 %; Neutrophils # 13.4 K/mcL (1.6-8.9); Platelet Count 279 K/mcL (140-400); Red Blood Count 2.79 M/mcL (3.82-4.97); Red Cell Distribution Width 13.4 % (11.5-14.5); Segmented Neutrophils % 93.5 %
[2016-06-08 04:37] LABS: BUN/Creatinine Ratio 24 (6-26); Blood Urea Nitrogen 22 mg/dL (7-20); Calcium 9.8 mg/dL (8.6-10.8); Carbon Dioxide 36 mEq/L (19-29); Chloride 102 mEq/L (98-109); Glucose 126 mg/dL (70-99); Magnesium 1.8 mg/dL (1.6-2.6); Osmolality,Calculated 305 (280-300); Phosphorous 2.4 mg/dL (2.3-4.7); Potassium 3.3 mEq/L (3.5-4.5); Sodium 145 mEq/L (136-145); eGFR For African Americans > 60 (> 60); eGFR For Non-African Americans > 60 (> 60)
[2016-06-08 05:03] LABS: ABG Base Excess 15.4 mEq/L (-2.0 to 3.0); ABG HCO3 42.9 mEQ/L (21-27); ABG Oxygen Saturation 86 % (95-98); ABG PH 7.36 pH Units (7.32-7.45); ABG PO2 53 mmHg (85-104); ABG TCO2 45.2 mEq/L (20-26)
[2016-06-08 05:04] LABS: ABG PCO2 76 mmHg (35-45); Blood Gas FiO2 30 %
[2016-06-08] MEDS: Magnesium Sulfate 2 GM in D5% in Water 100 ML IVPB PRN (05:11)
[2016-06-08] MEDS: *HR* Heparin 5,000 UNIT/ML VIAL SQ SCH ×2 (05:12→17:20)
[2016-06-08] MEDS: Potassium Phosphate 44 MEQ in 0.9 % Sodium Chloride 250 ML IVPB PRN (05:12)
--- NOTE | 2016-06-08 08:00 | Pulmonology Progress Note ---
<Marcy Huffman - Last Filed: 06/08/16 10:19> Date of Encounter: 06/08/16 Time of Encounter: 07:59 Assessment and Plan (1) Septic shock Current Visit: Yes Status: Acute Patient presented to the emergency department 2 nights ago with shortness of breath 1 month and was found to be hypotensive. She was given approximately 3 L of fluid with no response. She had a right IJ placed and was placed on Levofed. She has been maintaining a map of 65 on the Levofed. She remained on Levophed throughout the day yesterday but was removed last night. She was intubated for respiratory distress due to right middle lobe pneumonia and COPD exacerbation. She has failed to CPAP trials yesterday and her sedation has been turned off. Her initial white blood cell count was 34.7. Her lactate has decreased to 0.8 from 1.3. Her troponins had a spike of 0.06 and are now trending down at 0.04. Patient was subsequently extubated this morning after a successful CPAP trial. She is doing well. Patient had a negative nasal flu swab. She had a negative urine Legionella and strep pneumo antigen. echo ( 06/06):LVEF 65% EKG: NSR RIP panel: Negative Plan: Patient extubated this morning Prednisone 40 mg every 8 Antibiotics: Levaquin, Zosyn DVT prophylaxis: Heparin every 12 GI prophylaxis: Protonix 40 daily. Discharge to floor. (2) Respiratory failure Current Visit: Yes Status: Acute Patient extubated this morning. Plan as above Qualifiers: Chronicity: acute on chronic Respiratory failure complication: hypoxia and hypercapnia Qualified Code(s): J96.21 - Acute and chronic respiratory failure with hypoxia; J96.22 - Acute and chronic respiratory failure with hypercapnia (3) Pneumonia Current Visit: Yes Status: Acute Right middle lobe pneumonia. Plan: Zosyn Levaquin Prednisone 40 mg every 8 Continue to monitor Qualifiers: Pneumonia type: due to unspecified organism Laterality: right Lung location: middle lobe of lung Qualified Code(s): J18.1 - Lobar pneumonia, unspecified organism (4) Acute exacerbation of chronic obstructive airways disease Current Visit: Yes Status: Acute O2 dependent at home. Overlying right middle lobe pneumonia, complicated by COPD. Plan as above. (5) Acute kidney injury Current Visit: Yes Status: Acute Creatinine is continuing to improve. Patient is continuing to make urine. Plan: Strict I's and O's We will continue to monitor (6) DVT prophylaxis Current Visit: Yes Status: Acute Heparin 5000 units every 12 Subjective Interval history: Patient rested well overnight. CPAP trial this morning. Patient was then extubated. She does have some delirium however is able to follow commands. She is in no distress. She has no complaints. We will continue to monitor patient and advance her diet. We will continue antibiotics for her right middle lobe pneumonia. We will transfer patient to the floor this afternoon pending she does well throughout the day. We will make sure not to give any patient any CASTING CARRIER dampening medications. Objective PUL Vital signs: Last Vital Signs Temp 99.1 F 06/08/16 07:46 Pulse 70 06/08/16 06:10 Resp 17 06/08/16 06:19 BP 111/78 06/08/16 06:19 Pulse Ox 91 06/08/16 06:19 General appearance: no acute distress, alert (but confused) Eyes: nonicteric ENT: oropharynx moist Neck: supple Effort: normal Auscultation: left: clear, right: rhonchi (on exhalation) Cardiovascular: regular rate and rhythm Gastrointestinal: normoactive bowel sounds, soft, non-tender Integumentary: normal Extremities: no cyanosis, no edema, no clubbing, pink and warm, pulses normal, no ischemia or petechiae Musculoskeletal: no deformities Gait: normal posture non-focal exam, pupils equal and round, other (Pt confused) mood appropriate, affect normal Ventilator Settings Ventilator Settings: Ventilator Settings, Last 8 Hours Ventilator Mode CPAP Ventilator Mode A/C Ventilator Mode A/C Ventilator Mode A/C Ventilator Mode A/C Ventilator Mode A/C Ventilator Mode A/C Ventilator Mode A/C Ventilator Mode A/C Ventilator Mode A/C Ventilator Mode A/C Ventilator Mode A/C Ventilator Mode A/C Ventilator Tidal Volume 430 Setting Ventilator Tidal Volume 430 Setting Ventilator Tidal Volume 430 Setting Ventilator Tidal Volume 430 Setting Ventilator Tidal Volume 430 Setting Ventilator Tidal Volume 430 Setting Ventilator Tidal Volume 430 Setting Ventilator Tidal Volume 430 Setting Ventilator Tidal Volume 430 Setting Ventilator Tidal Volume 430 Setting Ventilator Tidal Volume 430 Setting Ventilator Tidal Volume 430 Setting Ventilator Respiratory Rate 16 Setting Ventilator Respiratory Rate 16 Setting Ventilator Respiratory Rate 12 Setting Ventilator Respiratory Rate 12 Setting Ventilator Respiratory Rate 12 Setting Ventilator Respiratory Rate 12 Setting Ventilator Respiratory Rate 12 Setting Ventilator Respiratory Rate 12 Setting Ventilator Respiratory Rate 12 Setting Ventilator Respiratory Rate 12 Setting Ventilator Respiratory Rate 12 Setting Ventilator Respiratory Rate 12 Setting Actual Respiratory Rate 14 Actual Respiratory Rate 16 Actual Respiratory Rate 16 Actual Respiratory Rate 12 Actual Respiratory Rate 12 Actual Respiratory Rate 12 Actual Respiratory Rate 12 Actual Respiratory Rate 12 Actual Respiratory Rate 12 Actual Respiratory Rate 12 Actual Respiratory Rate 12 Actual Respiratory Rate 12 Positive End Expiratory 5 Pressure Positive End Expiratory 5 Pressure Positive End Expiratory 5 Pressure Positive End Expiratory 5 Pressure Positive End Expiratory 5 Pressure Positive End Expiratory 5 Pressure Positive End Expiratory 5 Pressure Positive End Expiratory 5 Pressure Positive End Expiratory 5 Pressure Positive End Expiratory 5 Pressure Positive End Expiratory 5 Pressure Positive End Expiratory 5 Pressure Positive End Expiratory 5 Pressure Peak Inspiratory Airway 8 Pressure Peak Inspiratory Airway 31 Pressure Peak Inspiratory Airway 30 Pressure Peak Inspiratory Airway 29 Pressure Peak Inspiratory Airway 29 Pressure Peak Inspiratory Airway 31 Pressure Peak Inspiratory Airway 33 Pressure Peak Inspiratory Airway 35 Pressure Peak Inspiratory Airway 31 Pressure Peak Inspiratory Airway 36 Pressure Peak Inspiratory Airway 34 Pressure Results - Laboratory Findings CBC and BMP: 06/08/16 04:14 06/08/16 04:14 ABG ABG pH 7.36 pH Units (7.32-7.45) 06/08/16 04:50 ABG pCO2 76 mmHg (35-45) H* 06/08/16 04:50 ABG pO2 53 mmHg (85-104) L 06/08/16 04:50 ABG O2 Saturation 86 % (95-98) L 06/08/16 04:50 PT/INR, D-dimer PT 12.7 Seconds (9.4-12.1) H 06/05/16 19:48 Abnormal lab findings: Abnormal lab results WBC 14.3 K/mcL (4.3-11.1) H 06/08/16 04:14 RBC 2.79 M/mcL (3.82-4.97) L 06/08/16 04:14 Hgb 8.0 g/dL (11.5-15.4) L 06/08/16 04:14 Hct 26.2 % (35.3-44.9) L 06/08/16 04:14 MCHC 30.5 g/dL (31.6-35.5) L 06/08/16 04:14 Band Neutrophils % 14.0 % (0-4) H 06/05/16 19:48 Neutrophils # 13.4 K/mcL (1.6-8.9) H 06/08/16 04:14 Lymphocytes # 0.4 K/mcL (0.6-4.6) L 06/08/16 04:14 Large Platelets Present (Not Present) A 06/06/16 12:55 Polychromasia 1+ (Not Present) A 06/05/16 19:48 Basophilic Stippling 1+ (Not Present) A 06/06/16 12:55 Microcytosis Present (Not Present) A 06/05/16 19:48 PT 12.7 Seconds (9.4-12.1) H 06/05/16 19:48 ABG pCO2 76 mmHg (35-45) H* 06/08/16 04:50 ABG pO2 53 mmHg (85-104) L 06/08/16 04:50 ABG HCO3 42.9 mEQ/L (21-27) H 06/08/16 04:50 ABG Total CO2 45.2 mEq/L (20-26) H 06/08/16 04:50 ABG O2 Saturation 86 % (95-98) L 06/08/16 04:50 ABG Base Excess 15.4 mEq/L (-2.0 to 3.0) H 06/08/16 04:50 Potassium 3.3 mEq/L (3.5-4.5) L 06/08/16 04:14 Carbon Dioxide 36 mEq/L (19-29) H 06/08/16 04:14 BUN 22 mg/dL (7-20) H 06/08/16 04:14 Glucose 126 mg/dL (70-99) H 06/08/16 04:14 POC Glucose 128 (58-89) H 06/07/16 23:36 Calculated Osmolality 305 (280-300) H 06/08/16 04:14 AST 36 Units/L (5-34) H 06/06/16 04:37 Alkaline Phosphatase 201 Units/L (38-126) H 06/06/16 04:37 Troponin I 0.04 ng/mL (0-0.03) H* 06/06/16 10:35 B-Natriuretic Peptide 222 pg/mL (0-100) H 06/05/16 19:48 Albumin 2.3 g/dL (3.5-5.0) L 06/06/16 04:37 Globulin 4.1 g/dL (2.4-3.5) H 06/06/16 04:37 Albumin/Globulin Ratio 0.6 (1.1-2.2) L 06/06/16 04:37 - Microbiology Findings Microbiology Findings: Microbiology, Last 48 Hours 06/06/16 05:17 Sputum Culture - Preliminary Sputum 06/06/16 04:45 Legionella Antigen - Final Urine,[place] Streptococcus pneumoniae Antigen (M - Final - Diagnostic Findings Additional studies: KUB X-Ray 06/06/16 02:35 IMPRESSION: 1. Nasogastric tube with its tip in the fundus of the stomach. D/ / Jovany Blake MD / Jovany Blake MD Interpreting Provider: Jovany Blake MD Chest X-Ray 06/07/16 07:36 IMPRESSION: Stable chest. D/ / 06/07/2016 08:12:31 Christopher Bob MD / chuck Interpreting Provider: Christopher Bob MD - Clinical Findings Intake & Output: Intake & Output 06/07/16 06/07/16 06/08/16 15:59 23:59 07:59 Intake Total 360 / 360 158.9 / 158.9 431.3 / 431.3 Output Total 500 / 500 700 / 700 600 / 600 Balance -140 / -140 -541.1 / -541.1 -168.7 / -168.7 Weight 65.8 kg Consult Discharge Plan - Plan Referrals: Javier Reyes MD [Primary Care Provider] - <Charanjit Jacob W - Last Filed: 06/08/16 13:48> Date of Encounter: 06/08/16 Objective PUL Vital signs: Last Vital Signs Temp 97.7 F 06/08/16 12:53 Pulse 97 06/08/16 13:18 Resp 17 06/08/16 12:53 BP 126/70 06/08/16 12:53 Pulse Ox 96 06/08/16 12:53 Ventilator Settings Ventilator Settings: Ventilator Settings, Last 8 Hours Ventilator Mode CPAP Ventilator Mode CPAP Ventilator Mode A/C Ventilator Tidal Volume 430 Setting Ventilator Respiratory Rate 16 Setting Actual Respiratory Rate 16 Actual Respiratory Rate 14 Actual Respiratory Rate 16 Positive End Expiratory 5 Pressure Positive End Expiratory 5 Pressure Positive End Expiratory 5 Pressure Peak Inspiratory Airway 17 Pressure Peak Inspiratory Airway 8 Pressure Peak Inspiratory Airway 31 Pressure Results - Laboratory Findings CBC and BMP: 06/08/16 04:14 06/08/16 04:14 ABG ABG pH 7.36 pH Units (7.32-7.45) 06/08/16 04:50 ABG pCO2 76 mmHg (35-45) H* 06/08/16 04:50 ABG pO2 53 mmHg (85-104) L 06/08/16 04:50 ABG O2 Saturation 86 % (95-98) L 06/08/16 04:50 PT/INR, D-dimer PT 12.7 Seconds (9.4-12.1) H 06/05/16 19:48 Abnormal lab findings: Abnormal lab results WBC 14.3 K/mcL (4.3-11.1) H 06/08/16 04:14 RBC 2.79 M/mcL (3.82-4.97) L 06/08/16 04:14 Hgb 8.0 g/dL (11.5-15.4) L 06/08/16 04:14 Hct 26.2 % (35.3-44.9) L 06/08/16 04:14 MCHC 30.5 g/dL (31.6-35.5) L 06/08/16 04:14 Band Neutrophils % 14.0 % (0-4) H 06/05/16 19:48 Neutrophils # 13.4 K/mcL (1.6-8.9) H 06/08/16 04:14 Lymphocytes # 0.4 K/mcL (0.6-4.6) L 06/08/16 04:14 Large Platelets Present (Not Present) A 06/06/16 12:55 Polychromasia 1+ (Not Present) A 06/05/16 19:48 Basophilic Stippling 1+ (Not Present) A 06/06/16 12:55 Microcytosis Present (Not Present) A 06/05/16 19:48 PT 12.7 Seconds (9.4-12.1) H 06/05/16 19:48 ABG pCO2 76 mmHg (35-45) H* 06/08/16 04:50 ABG pO2 53 mmHg (85-104) L 06/08/16 04:50 ABG HCO3 42.9 mEQ/L (21-27) H 06/08/16 04:50 ABG Total CO2 45.2 mEq/L (20-26) H 06/08/16 04:50 ABG O2 Saturation 86 % (95-98) L 06/08/16 04:50 ABG Base Excess 15.4 mEq/L (-2.0 to 3.0) H 06/08/16 04:50 Potassium 3.3 mEq/L (3.5-4.5) L 06/08/16 04:14 Carbon Dioxide 36 mEq/L (19-29) H 06/08/16 04:14 BUN 22 mg/dL (7-20) H 06/08/16 04:14 Glucose 126 mg/dL (70-99) H 06/08/16 04:14 POC Glucose 128 (58-89) H 06/07/16 23:36 Calculated Osmolality 305 (280-300) H 06/08/16 04:14 AST 36 Units/L (5-34) H 06/06/16 04:37 Alkaline Phosphatase 201 Units/L (38-126) H 06/06/16 04:37 Troponin I 0.04 ng/mL (0-0.03) H* 06/06/16 10:35 B-Natriuretic Peptide 222 pg/mL (0-100) H 06/05/16 19:48 Albumin 2.3 g/dL (3.5-5.0) L 06/06/16 04:37 Globulin 4.1 g/dL (2.4-3.5) H 06/06/16 04:37 Albumin/Globulin Ratio 0.6 (1.1-2.2) L 06/06/16 04:37 - Microbiology Findings Microbiology Findings: Microbiology, Last 48 Hours 06/06/16 05:17 Sputum Culture - Preliminary Sputum - Clinical Findings Intake & Output: Intake & Output 06/07/16 06/08/16 06/08/16 23:59 07:59 15:59 Intake Total 158.9 / 158.9 536.3 / 536.3 Output Total 700 / 700 600 / 600 150 / 150 Balance -541.1 / -541.1 -63.7 / -63.7 -150 / -150 Weight 65.8 kg - Attending Attestation I examined this patient and my medical decision-making was reviewed with the CAMPUS AIDE/PA/Advanced Practice Nurse/Resident Physician. I agree with the documented findings, disposition and treatment plan as described except to the extent set forth below. Patient seen and examined at bedside Labs, radiology, chart personally reviewed. All lines examined without evidence of infection. Neuropsych: delirum noted today without focal deficit. Avoid CASTING CARRIER depressants. Reestablish sleep wake cycle Pulm: CAP with COPD exacerbation leading to toxic hypercapnic respiratory failure now liberated from the ventilator and doing well weaned to nasal cannula oxygen to keep saturations greater than 88-92% continue bronchodilators okay to transition from IV to enteral steroids to complete 2 week taper Cards: Supply demand ischemia now resolved echo without wall motion abnormalities continue to monitor FEN-GI: Advance diet as tolerated once bedside swallo evaluation has been passed. Renal: Stephy has resolved ID: Septic shock secondary to pneumonia now resolved. Treat for CAP - levaquin x 7 days stop Pip/Og f/u cultures Heme/Onc: DVT prophylaxis given Endo: Glucose monitored Integ/MSK: skin care per routine CODE: Full Stable for transfer to Telemetry for ongoing care
[2016-06-08] MEDS: Chlorhexidine Rinse 15 ML MOUTHWASH MM SCH (08:28)
[2016-06-08] MEDS: Docusate Oral Soln 100 MG/10 ML UDC GTUBE SCH (08:29)
[2016-06-08] MEDS: Pantoprazole 40 MG VIAL IVPB SCH (08:31)
[2016-06-08] MEDS: Levofloxacin 750 MG/150 ML 750 MG/150 ML BAG IVPB SCH (11:27)
--- NOTE | 2016-06-08 12:30 | Event Note ---
Date of Encounter: 06/08/16 Time of Encounter: 12:[address] Vázquez
[2016-06-08] MEDS ORDERED: Ipratropium/Albuterol Neb 3 ML IH PRN (12:54)
[2016-06-08] MEDS ORDERED: Naloxone 0.4 MG/ML INJ IVP PRN (12:54)
[2016-06-08] MEDS ORDERED: Ondansetron 4 MG/2 ML VIAL IVP PRN (12:54)
[2016-06-08] MEDS: ARIPiprazole 5 MG TABLET PO SCH (18:33)
[2016-06-08] MEDS: ALPRAZolam 1 MG TABLET PO SCH (19:50)
[2016-06-09] MEDS: MethylPREDNISolone 40 MG/ML VIAL IVP SCH ×4 (00:34→15:15)
[2016-06-09] MEDS: *HR* Metoprolol 5 MG/5 ML VIAL IVP PRN ×2 (02:29→09:31)
[2016-06-09] MEDS: *HR* Heparin 5,000 UNIT/ML VIAL SQ SCH ×2 (05:33→19:19)
[2016-06-09] MEDS: ALPRAZolam 1 MG TABLET PO SCH ×3 (08:12→21:03)
[2016-06-09] MEDS: ARIPiprazole 5 MG TABLET PO SCH (08:13)
[2016-06-09] MEDS: Lisinopril-HCTZ 20-12.5mg TABLET PO SCH (08:14)
--- NOTE | 2016-06-09 13:08 | Internal Med Progress Note ---
Date of Encounter: 06/09/16 Time of Encounter: 13:05 - Assessment and plan (1) Acute exacerbation of chronic obstructive airways disease Current Visit: Yes Status: Acute Assessment and plan: Acute metabolic encephalopathy with hallucinations likely secondary to acute hypoxic and hypercapnic respiratory failure due to acute COPD exacerbation from septic shock from a community-acquired pneumonia, status post intubation and extubation Metabolic encephalopathy likely secondary to hypercapnea versus use of steroids or both Chest x-ray showed a right mid lobe will opacity Required levophed this. Continue Levaquin day 3, continue Solu-Medrol May recheck ABG if needed, we will have BiPAP as needed available Fall precautions, continue sitter High risk of respiratory failure (2) Respiratory failure Current Visit: Yes Status: Acute Qualifiers: Chronicity: acute on chronic Respiratory failure complication: hypoxia and hypercapnia Qualified Code(s): J96.21 - Acute and chronic respiratory failure with hypoxia; J96.22 - Acute and chronic respiratory failure with hypercapnia (3) Septic shock Current Visit: Yes Status: Acute (4) Acute kidney injury Current Visit: Yes Status: Acute Assessment and plan: Likely secondary to septic shock, resolved (5) Pneumonia Current Visit: Yes Status: Acute Qualifiers: Pneumonia type: due to unspecified organism Laterality: right Lung location: middle lobe of lung Qualified Code(s): J18.1 - Lobar pneumonia, unspecified organism - Subjective Interval history: Patient is extremely confused, disoriented in time, unable to completely review of systems, denies any chest pain, is not in distress, is having hallucinations trying to call multiple family members, agitated at times - Constitutional Vitals: Temp Pulse Resp BP Pulse Ox 97.7 F 95 18 175/100 95 06/09/16 11:45 06/09/16 11:45 06/09/16 11:45 06/09/16 11:45 06/09/16 11:45 General appearance: Present: A&O X 2 (Disoriented in time), severe distress - Head Head exam: Present: atraumatic, normocephalic - Eye Eye exam: Present: PERRL, conjuntiva pink, sclera anicteric Pupils: Present: PERRL - Neck Neck exam general surgery: Present: supple, trachea midline. Absent: lymphadenopathy - Respiratory Respiratory exam: Present: CTAB, rales (Diffuse wheezing and crackles). Absent : accessory muscle use, rhonchi, wheezes - Cardiovascular Cardiovascular exam: Present: RRR, +S1, +S2. Absent: diastolic murmur, gallop, rubs, systolic murmur - GI/Abdominal GI/Abdominal exam: Present: normal bowel sounds, soft, no peritoneal signs. Absent: distended, tenderness - Extremities Exam Extremities exam: Present: warm, radial pulses palpable and symetrical. Absent : calf tenderness, cyanotic, pedal edema - Neurological Exam Neurological exam: Present: CN II-XII intact, oriented X3, no focal deficits. Absent: pronater drift, facial droop, speech deficit - Skin Skin exam: Present: dry, intact Internal Medicine: Result - Labs CBC & Chem 7: 06/08/16 04:14 06/08/16 04:14 - ABG Interpretation ABG results: ABG ABG pH 7.36 pH Units (7.32-7.45) 06/08/16 04:50 ABG pCO2 76 mmHg (35-45) H* 06/08/16 04:50 ABG pO2 53 mmHg (85-104) L 06/08/16 04:50 ABG O2 Saturation 86 % (95-98) L 06/08/16 04:50 PT/INR, D-dimer PT 12.7 Seconds (9.4-12.1) H 06/05/16 19:48 Consult Discharge Plan - Plan Referrals: Javier Reyes MD [Primary Care Provider] - 06/17/16 1:15 pm (Please follow up as schedule....)
[2016-06-09] MEDS: Levofloxacin 750 MG/150 ML 750 MG/150 ML BAG IVPB SCH (15:46)
[2016-06-10] MEDS: MethylPREDNISolone 40 MG/ML VIAL IVP SCH ×3 (01:04→23:47)
[2016-06-10] MEDS: *HR* Heparin 5,000 UNIT/ML VIAL SQ SCH ×2 (05:22→17:42)
[2016-06-10] MEDS: ARIPiprazole 5 MG TABLET PO SCH (09:09)
[2016-06-10] MEDS: Lisinopril-HCTZ 20-12.5mg TABLET PO SCH (09:09)
[2016-06-10] MEDS: ALPRAZolam 1 MG TABLET PO SCH ×3 (09:09→23:45)
[2016-06-10] MEDS ORDERED: *HR* Metoprolol 5 MG/5 ML VIAL IVP PRN (12:56)
[2016-06-10] MEDS ORDERED: Albuterol 2.5 MG/3 ML NEBULIZER IH PRN (12:59)
[2016-06-10] MEDS: Levofloxacin 750 MG/150 ML 750 MG/150 ML BAG IVPB SCH ×2 (14:32→15:11)
[2016-06-10] MEDS: Ipratropium/Albuterol Neb 3 ML IH SCH ×2 (15:48→22:20)
[2016-06-11] MEDS: *HR* Heparin 5,000 UNIT/ML VIAL SQ SCH ×2 (05:13→18:37)
[2016-06-11 05:39] LABS: Hematocrit 28.7 % (35.3-44.9); Hemoglobin 9.1 g/dL (11.5-15.4); Immature Granulocytes % 0.8 % (0-4); Lymphocytes # 2.3 K/mcL (0.6-4.6); Lymphocytes % 23.8 %; Mean Corpuscular HGB Conc 31.7 g/dL (31.6-35.5); Mean Corpuscular Volume 91.4 fL (83.0-100.0); Mean Platelet Volume 10.6 fL (9.4-12.4); Monocytes # 0.7 K/mcL (0.0-1.3); Monocytes % 6.9 %; Neutrophils # 6.7 K/mcL (1.6-8.9); Platelet Count 262 K/mcL (140-400); Red Blood Count 3.14 M/mcL (3.82-4.97); Red Cell Distribution Width 13.3 % (11.5-14.5); Segmented Neutrophils % 68.5 %
[2016-06-11 05:51] LABS: BUN/Creatinine Ratio 26 (6-26); Blood Urea Nitrogen 20 mg/dL (7-20); Calcium 9.4 mg/dL (8.6-10.8); Chloride 94 mEq/L (98-109); Glucose 94 mg/dL (70-99); Osmolality,Calculated 294 (280-300); Potassium 3.3 mEq/L (3.5-4.5); Sodium 141 mEq/L (136-145); eGFR For African Americans > 60 (> 60); eGFR For Non-African Americans > 60 (> 60)
[2016-06-11 05:54] LABS: Carbon Dioxide 42 mEq/L (19-29)
[2016-06-11 06:34] LABS: ABG HCO3 52.1 mEQ/L (21-27); ABG Oxygen Saturation 96 % (95-98); ABG PH 7.45 pH Units (7.32-7.45); ABG PO2 82 mmHg (85-104); ABG TCO2 54.4 mEq/L (20-26)
[2016-06-11 06:44] LABS: ABG PCO2 75 mmHg (35-45)
[2016-06-11 06:45] LABS: Blood Gas Liter Flow 2 L/MIN
[2016-06-11] MEDS: ALPRAZolam 1 MG TABLET PO SCH ×3 (10:13→20:50)
[2016-06-11] MEDS: Lisinopril-HCTZ 20-12.5mg TABLET PO SCH (10:13)
[2016-06-11] MEDS: MethylPREDNISolone 40 MG/ML VIAL IVP SCH (10:15)
[2016-06-11] MEDS: Ipratropium/Albuterol Neb 3 ML IH SCH ×3 (10:44→20:36)
[2016-06-11] MEDS ORDERED: Potassium Chloride Elixir 20 MEQ/15 ML UDC PO ONE (11:05)
[2016-06-11] MEDS ORDERED: *HR* HYDROcodone/Acet 5/325 mg TABLET PO PRN (13:18)
--- NOTE | 2016-06-11 15:47 | Consult Note ---
Date of Encounter: 06/11/16 Time of Encounter: 15:10 Assessment & Recommendation (1) Depression, major, recurrent, in remission Current visit: Yes Status: Acute Assessment & Recommendation: Patient is stable from psychiatric standpoint on medication including Paxil and Abilify that were prescribed by a psychiatrist and she is followed by her primary care physician. I would recommend individual therapy to help patient deal with some of her stressors especially the loss of her daughter last year she is agreeable to have therapy and resources would be provided for her. Patient may be discharged if she is medically stable. Thank you for the consult History of Present Illness Patient: new to practice Requesting Physician: Caity Jon MD Reason for consult: Depression and confusion History of present illness: Ms. Mcdonough is a 55 year old female admitted to the hospital for evaluation and treatment of septic shock pneumonia acute COPD in addition to other condition including kidney acute kidney injury and patient was reported to be disoriented and confused also she had a history of depression. Consultation was requested regarding her depression. Patient reported that she had a history of depression for most of her life and most recently last year she lost her only daughter to an overdose at that time patient was seen by psychiatrist Dr. Rodney put patient on medication including Abilify and Paxil patient responded well to medication then she was referred back to her primary care physician to prescribe the medication. Patient reports no individual therapy or counseling but she would be interested to have. On interview the patient presented as a middle age white female pleasant and cooperative alert and reporting feeling much better and improving from her infection and other conditions she is aware of her treatment and was more distorted and reporting her treatment history and denies having any suicidal ideation or hopelessness. She is anxious to be discharged to go home and enjoy the visit was her sister. CC: Caity Jon MD Past Med Surg Social Fam HX - Past Medical History Medical history: COPD, hypertension - Past Psychiatric History Psychiatric history: Reports: depression Family psychiatric history: Unknown Family History of Suicide: Unknown - Past Surgical History Surgical History: non-contributory - Social History Smoking Status: Former smoker Smokeless Tobacco Status: No Alcohol use: none Drug use: none Medications & Allergies Alprazolam [Xanax 1 MG Tablet] 1 mg PO TID 06/05/16 [History] Aripiprazole [Abilify] 5 mg PO DAILY 06/05/16 [History] Atorvastatin [Lipitor] 40 mg PO HS 06/05/16 [History] Budesonide/Formoterol 160/4.5 [Symbicort 160/4.5] 2 puff IH BIDR 06/05/16 [ History] CloNIDine HCl 0.1 mg PO DAILY PRN 06/05/16 [History] Fluticasone/Vilanterol [Breo Ellipta 100-25 Mcg INH] 1 each IH DAILY 06/05/16 [ History] HYDROcodone/Acet 7.5/325 mg [[place] 7.5-325 mg] 1 tab PO TID PRN 06/05/16 [ History] Lisinopril/Hydrochlorothiazide [Zestoretic 20-12.5 mg Tablet] 1 each PO DAILY [History] Metoprolol [Lopressor] 25 mg PO BID 06/05/16 [History] Paroxetine [Paxil] 30 mg PO DAILY 06/05/16 [History] Allergies No Known Allergies Allergy (Verified 10/09/15 18:12) Mental Status Exam Patient orientation: Yes Person, Yes Time, Yes Place Level of alertness: Alert Patient appearance: Appropriate, Well Groomed Behavior: calm, cooperative Psychomotor activity: Normal Eye contact: Maintains Eye Contact Mood description: Euthymic/stable Affect description: congruent with mood, full range Speech pattern: Normal rate, Normal rhythm, Normal tone Speech volume: Normal Thought process: Linear, Goal Oriented Thought content: No Suicidal ideation, No Homicidal ideation, No Overt delusions Perceptual disturbances: No Auditory hallucinations, No Visual hallucinations Attention span: Capable of Focused Attention Memory description: Grossly Intact Patient reliability: Reliable Historian Intelligence estimate: Average Judgment: Limited Insight: Partial Results - Vital Signs Vital signs: Temp Pulse Resp BP Pulse Ox 98.1 F 75 16 107/73 96 06/11/16 12:45 06/11/16 12:45 06/11/16 12:45 06/11/16 12:45 06/11/16 12:45 - Labs Labs: Laboratory Last Values WBC 9.7 K/mcL (4.3-11.1) 06/11/16 05:34 RBC 3.14 M/mcL (3.82-4.97) L 06/11/16 05:34 Hgb 9.1 g/dL (11.5-15.4) L 06/11/16 05:34 Hct 28.7 % (35.3-44.9) L 06/11/16 05:34 MCV 91.4 fL (83.0-100.0) 06/11/16 05:34 MCH 29.0 pg (28.0-33.3) 06/11/16 05:34 MCHC 31.7 g/dL (31.6-35.5) 06/11/16 05:34 RDW 13.3 % (11.5-14.5) 06/11/16 05:34 Plt Count 262 K/mcL (140-400) 06/11/16 05:34 MPV 10.6 fL (9.4-12.4) 06/11/16 05:34 Immature Gran % 0.8 % (0-4) 06/11/16 05:34 Seg Neutrophils % 68.5 % 06/11/16 05:34 Band Neutrophils % 14.0 % (0-4) H 06/05/16 19:48 Lymphocytes % 23.8 % 06/11/16 05:34 Monocytes % 6.9 % 06/11/16 05:34 Eosinophils % 0.0 % 06/11/16 05:34 Basophils % 0.0 % 06/11/16 05:34 Neutrophils # 6.7 K/mcL (1.6-8.9) 06/11/16 05:34 Lymphocytes # 2.3 K/mcL (0.6-4.6) 06/11/16 05:34 Monocytes # 0.7 K/mcL (0.0-1.3) 06/11/16 05:34 Eosinophils # 0.0 K/mcL (0.0-0.6) 06/11/16 05:34 Basophils # 0.0 K/mcL (0.0-0.2) 06/11/16 05:34 Platelet Estimate Normal (Normal) 06/07/16 03:55 Large Platelets Present (Not Present) A 06/06/16 12:55 Immature Plt Fraction 5.6 % (1.1-6.1) 06/06/16 12:55 Polychromasia 1+ (Not Present) A 06/05/16 19:48 Basophilic Stippling 1+ (Not Present) A 06/06/16 12:55 Microcytosis Present (Not Present) A 06/05/16 19:48 PT 12.7 Seconds (9.4-12.1) H 06/05/16 19:48 INR 1.2 06/05/16 19:48 APTT 34.6 Seconds (26.0-36.0) 06/05/16 19:48 ABG pH 7.45 pH Units (7.32-7.45) 06/11/16 06:18 ABG pCO2 75 mmHg (35-45) H* 06/11/16 06:18 ABG pO2 82 mmHg (85-104) L 06/11/16 06:18 ABG HCO3 52.1 mEQ/L (21-27) H 06/11/16 06:18 ABG Total CO2 54.4 mEq/L (20-26) H 06/11/16 06:18 ABG O2 Saturation 96 % (95-98) 06/11/16 06:18 ABG Base Excess 25.0 mEq/L (-2.0 to 3.0) H 06/11/16 06:18 Liter Flow 2 L/MIN 06/11/16 06:18 Blood Gas Modality NV 06/11/16 06:18 Inspired O2 30 % 06/08/16 04:50 Sodium 141 mEq/L (136-145) 06/11/16 05:34 Potassium 3.3 mEq/L (3.5-4.5) L 06/11/16 05:34 Chloride 94 mEq/L (98-109) L 06/11/16 05:34 Carbon Dioxide 42 mEq/L (19-29) H* 06/11/16 05:34 BUN 20 mg/dL (7-20) 06/11/16 05:34 Creatinine 0.76 mg/dL (0.57-1.11) 06/11/16 05:34 Est GFR ( Amer) > 60 (> 60) 06/11/16 05:34 Est GFR (Non-Af Amer) > 60 (> 60) 06/11/16 05:34 BUN/Creatinine Ratio 26 (6-26) 06/11/16 05:34 Glucose 94 mg/dL (70-99) 06/11/16 05:34 POC Glucose 126 (58-89) H 06/08/16 15:20 Calculated Osmolality 294 (280-300) 06/11/16 05:34 Lactic Acid 0.8 mmol/L (0.5-2.2) 06/06/16 04:37 Calcium 9.4 mg/dL (8.6-10.8) 06/11/16 05:34 Ionized Calcium 1.34 mmol/L (1.15-1.35) 06/08/16 04:14 Phosphorus 2.4 mg/dL (2.3-4.7) 06/08/16 04:14 Magnesium 1.8 mg/dL (1.6-2.6) 06/08/16 04:14 Total Bilirubin 0.5 mg/dL (0.2-1.2) 06/06/16 04:37 AST 36 Units/L (5-34) H 06/06/16 04:37 ALT 19 Units/L (0-55) 06/06/16 04:37 Alkaline Phosphatase 201 Units/L (38-126) H 06/06/16 04:37 Troponin I 0.04 ng/mL (0-0.03) H* 06/06/16 10:35 B-Natriuretic Peptide 222 pg/mL (0-100) H 06/05/16 19:48 Serum Total Protein 6.4 g/dL (6.0-8.3) 06/06/16 04:37 Albumin 2.3 g/dL (3.5-5.0) L 06/06/16 04:37 Globulin 4.1 g/dL (2.4-3.5) H 06/06/16 04:37 Albumin/Globulin Ratio 0.6 (1.1-2.2) L 06/06/16 04:37 Random Vancomycin 16.9 mcg/mL 06/06/16 10:35 Chlamy pneumoniae PCR Not Detected (Not Detect) 06/06/16 10:30 Adenovirus (PCR) Not Detected (Not Detect) 06/06/16 10:30 B. pertussis DNA (PCR) Not Detected (Not Detect) 06/06/16 10:30 Coronavirus OC43 (PCR) Not Detected (Not Detect) 06/06/16 10:30 Coronavirus HKU1 (PCR) Not Detected (Not Detect) 06/06/16 10:30 Coronavirus 229E (PCR) Not Detected (Not Detect) 06/06/16 10:30 Coronavirus NL63 (PCR) Not Detected (Not Detect) 06/06/16 10:30 Human Metapneumovirus Not Detected (Not Detect) 06/06/16 10:30 Influenza A (H1) PCR Not Detected (Not Detect) 06/06/16 10:30 Influ A (H1N1/09) PCR Not Detected (Not Detect) 06/06/16 10:30 Influenza A (H3) PCR Not Detected (Not Detect) 06/06/16 10:30 Influenza A Untype (PCR) Not Detected (Not Detect) 06/06/16 10:30 Influenza Type B (PCR) Not Detected (Not Detect) 06/06/16 10:30 M.pneumoniae DNA (PCR) Not Detected (Not Detect) 06/06/16 10:30 Parainfluenza 1 (PCR) Not Detected (Not Detect) 06/06/16 10:30 Parainfluenza 2 (PCR) Not Detected (Not Detect) 06/06/16 10:30 Parainfluenza 3 (PCR) Not Detected (Not Detect) 06/06/16 10:30 Parainfluenza 4 (PCR) Not Detected (Not Detect) 06/06/16 10:30 RSV (PCR) Not Detected (Not Detect) 06/06/16 10:30 Entero/Rhino (PCR) Not Detected (Not Detect) 06/06/16 10:30 Consult Discharge Plan - Plan Referrals: Javier Reyes MD [Primary Care Provider] - 06/17/16 1:15 pm (Please follow up as schedule....)
[2016-06-11] MEDS: Levofloxacin 750 MG/150 ML 750 MG/150 ML BAG IVPB SCH (16:43)
[2016-06-12] MEDS: *HR* Heparin 5,000 UNIT/ML VIAL SQ SCH (05:46)
[2016-06-12 08:49] VITALS: BP 124/72
[2016-06-12] MEDS: ALPRAZolam 1 MG TABLET PO SCH (08:54)
[2016-06-12] MEDS: Lisinopril-HCTZ 20-12.5mg TABLET PO SCH (08:54)
[2016-06-12] MEDS ORDERED: predniSONE 20 MG TABLET PO SCH (09:00)
[2016-06-12] MEDS: Ipratropium/Albuterol Neb 3 ML IH SCH (10:42)
[2016-06-12] MEDS ORDERED: levoFLOXacin 500 MG TABLET PO SCH (11:45)
--- NOTE | 2016-06-12 13:49 | Discharge Summary ---
Date of Encounter: 06/12/16 Time of Encounter: 11:40 - Discharge Diagnosis (1) Acute exacerbation of chronic obstructive airways disease Priority: Primary Status: Acute (2) Septic shock Priority: Primary Status: Resolved (3) Acute kidney injury Priority: Primary Status: Resolved (4) Pneumonia Priority: Primary Status: Acute Qualifiers: Pneumonia type: due to unspecified organism Laterality: right Lung location: middle lobe of lung Qualified Code(s): J18.1 - Lobar pneumonia, unspecified organism (5) Depression, major, recurrent, in remission Priority: Secondary Status: Acute - Discharge Medications Prescriptions: PredniSONE 40 mg PO DAILY 7 Days Home Medications: Alprazolam [Xanax 1 MG Tablet] 1 mg PO TID 06/05/16 [History] Aripiprazole [Abilify] 5 mg PO DAILY 06/05/16 [History] Atorvastatin [Lipitor] 40 mg PO HS 06/05/16 [History] CloNIDine HCl 0.1 mg PO DAILY PRN 06/05/16 [History] Fluticasone/Vilanterol [Breo Ellipta 100-25 Mcg INH] 1 each IH DAILY 06/05/16 [ History] HYDROcodone/Acet 7.5/325 mg [[place] 7.5-325 mg] 1 tab PO TID PRN 06/05/16 [ History] Lisinopril/Hydrochlorothiazide [Zestoretic 20-12.5 mg Tablet] 1 each PO DAILY [History] Metoprolol [Lopressor] 25 mg PO BID 06/05/16 [History] Paroxetine [Paxil] 30 mg PO DAILY 06/05/16 [History] PredniSONE 40 mg PO DAILY 7 Days 06/12/16 [Rx] Allergies/Adverse Reactions: Allergies No Known Allergies Allergy (Verified 10/09/15 18:12) Date of admission: 06/06/16 02:41 Primary care physician: Javier Reyes MD Consults: 06/10/16 15:28 Consult to Psychiatry [CONS] Routine Consulting Provider: Psychiatry Nicky Reason for Consult: Patient with underlying mood disorder, depression, admitted with septic shock/pneumonia/acute COPD. Mental status is worse now with decreased attention span, disorientation and confusion, noncompliance. Call Completed: Yes Discharging clinician: Caity Jon Anticipated date of discharge: 06/12/16 - Patient Status Disposition: Home, Self-Care Condition: Good Functional capacity at discharge: independent ambulation Overall status at discharge: patient is progressing back to baseline - Discharge Instructions Instructions: Depression (DC), Chronic Obstructive Pulmonary Disease (DC), Pneumonia (DC) Follow Up With: Javier Reyes MD [Primary Care Provider] - 06/17/16 1:15 pm (Please follow up as schedule....) - Diet and Activity Activity: resume usual activities as tolerated, wear oxygen at all times Diet: low fat, low cholesterol, low salt diet Hospital course: Ms. Mcdonough is a 55 year old female with above medical problems who was admitted with worsening cough and shortness of breath. She was noted to be in respiratory distress, was initially admitted to ICU, required mechanical ventilation along with IV steroids, empiric IV antibiotics and supportive care. She was gradually able to be extubated and then transferred to medical floor. Blood cultures remain negative, sputum cultures grew Haemophilus influenzae and patient completed a 7 day course of antibiotics. She was noted to have delirium and hallucinations, likely due to the use of high -dose steroids along with underlying depression. Psychiatry has been consulted and recommended to continue her antidepressants and recommend outpatient follow- up for counseling. Patient's mental status gradually returned to baseline and she is currently medically stable for discharge on oral antibiotics and steroids and outpatient follow-up. - Time Spent with Patient Total time spent providing and/or coordinating discharge services: Greater than 30 minutes (50 min) - Constitutional Vitals: Temp Pulse Resp BP Pulse Ox 98.7 F 90 12 124/72 79 06/12/16 08:48 06/12/16 08:48 06/12/16 10:40 06/12/16 08:48 06/12/16 10:40 General appearance: Present: A&O X 3, answers questions appropriately - Respiratory Respiratory exam: Present: CTAB. Absent: accessory muscle use, rales, rhonchi, wheezes - Cardiovascular Cardiovascular exam: Present: RRR, +S1, +S2. Absent: diastolic murmur, gallop, rubs, systolic murmur
--- NOTE | 2016-06-12 15:57 | Internal Med Progress Note ---
Date of Encounter: 06/10/16 Time of Encounter: 14:45 - Assessment and plan (1) Acute exacerbation of chronic obstructive airways disease Status: Acute Assessment and plan: Exacerbation of COPD likely due to underlying pneumonia. Improving respiratory status. Continue IV antibiotics and taper down IV steroids as tolerated. Continue bronchodilators and supplemental oxygen as needed. (2) Septic shock Status: Resolved Assessment and plan: Septic shock likely secondary to pneumonia. Currently resolved. (3) Acute kidney injury Status: Resolved Assessment and plan: Likely related to underlying septic shock. Currently improved with IV hydration. (4) Pneumonia Status: Acute Assessment and plan: Clinically improving. Blood cultures remain negative, viral serology negative, sputum culture grows H influenzae. Continue IV Levaquin and supplemental oxygen as needed. Qualifiers: Pneumonia type: due to unspecified organism Laterality: right Lung location: middle lobe of lung Qualified Code(s): J18.1 - Lobar pneumonia, unspecified organism (5) Depression, major, recurrent, in remission Status: Acute Assessment and plan: Patient is noted to have acute encephalopathy, likely related to prolonged hospitalization and ICU stay along with the use of high-dose steroids and underlying depression/mood disorder. Currently noted to intermittently refuse medical care, along with confusion and disorientation. Patient is noted to be on Abilify and Paxil at home and family insists on holding Abilify as they came it is bad for her. Will consult psychiatry. - Subjective Interval history: Noted to be sitting up in bed. Confused and disoriented. Answers inappropriately and stops in mid sentence, forgetful. Denies chest pain, shortness of breath and noted to have cough. - Constitutional Vitals: Temp Pulse Resp BP Pulse Ox 98.7 F 90 12 124/72 79 06/12/16 08:48 06/12/16 08:48 06/12/16 10:40 06/12/16 08:48 06/12/16 10:40 General appearance: Present: A&O X 1 (Confused) - Respiratory Respiratory exam: Present: decreased breath sounds (Decreased air entry bilaterally). Absent: accessory muscle use, rales, rhonchi, wheezes - Cardiovascular Cardiovascular exam: Present: RRR, +S1, +S2. Absent: diastolic murmur, gallop, rubs, systolic murmur - GI/Abdominal GI/Abdominal exam: Present: normal bowel sounds, soft, no peritoneal signs. Absent: distended, tenderness - Extremities Exam Extremities exam: Present: full ROM, warm, radial pulses palpable and symetrical. Absent: calf tenderness, cyanotic, pedal edema - Neurological Exam Neurological exam: Present: altered, CN II-XII intact, no focal deficits. Absent: pronater drift, facial droop, speech deficit Internal Medicine: Result - Labs CBC & Chem 7: 06/11/16 05:34 06/11/16 05:34 - ABG Interpretation ABG results: ABG ABG pH 7.45 pH Units (7.32-7.45) 06/11/16 06:18 ABG pCO2 75 mmHg (35-45) H* 06/11/16 06:18 ABG pO2 82 mmHg (85-104) L 06/11/16 06:18 ABG O2 Saturation 96 % (95-98) 06/11/16 06:18 PT/INR, D-dimer PT 12.7 Seconds (9.4-12.1) H 06/05/16 19:48 Consult Discharge Plan - Plan Instructions: Depression (DC), Chronic Obstructive Pulmonary Disease (DC), Pneumonia (DC) Referrals: Javier Reyes MD [Primary Care Provider] - 06/17/16 1:15 pm (Please follow up as schedule....) Prescriptions: Levofloxacin [Levaquin] 750 mg PO DAILY #3 tablet PredniSONE 40 mg PO DAILY 7 Days
--- NOTE | 2016-06-13 17:55 | Internal Med Progress Note ---
Date of Encounter: 06/11/16 Time of Encounter: 11:30 - Assessment and plan (1) Acute exacerbation of chronic obstructive airways disease Status: Acute Assessment and plan: Exacerbation of COPD likely due to underlying pneumonia. Improving respiratory status. Continue IV antibiotics, we will change steroids to oral prednisone. Continue bronchodilators and supplemental oxygen as needed. (2) Septic shock Status: Resolved (3) Acute kidney injury Status: Resolved (4) Pneumonia Status: Acute Assessment and plan: Clinically improving. Improved leukocytosis. Blood cultures remain negative, viral serology negative, sputum culture grows H influenzae. Continue IV Levaquin and supplemental oxygen as needed. Qualifiers: Pneumonia type: due to unspecified organism Laterality: right Lung location: middle lobe of lung Qualified Code(s): J18.1 - Lobar pneumonia, unspecified organism (5) Depression, major, recurrent, in remission Status: Acute Assessment and plan: Patient is noted to have acute encephalopathy, likely related to prolonged hospitalization and ICU stay along with the use of high-dose steroids. This is currently noted to be improving, however patient is not at baseline mental status. We will follow up psychiatry consult. Patient is noted to be on Abilify and Paxil at home and family insists on holding Abilify as they came it is bad for her. - Subjective Interval history: Appears better today, able to answer more questions. Improving confusion, however continues to insist on being discharged. Improving shortness of breath and cough. Plan of care discussed with sister at bedside. - Constitutional Vitals: Temp Pulse Resp BP Pulse Ox 98.7 F 90 12 124/72 79 06/12/16 08:48 06/12/16 08:48 06/12/16 10:40 06/12/16 08:48 06/12/16 10:40 General appearance: Present: A&O X 2, answers questions appropriately - Respiratory Respiratory exam: Present: CTAB. Absent: accessory muscle use, rales, rhonchi, wheezes - Cardiovascular Cardiovascular exam: Present: RRR, +S1, +S2. Absent: diastolic murmur, gallop, rubs, systolic murmur - GI/Abdominal GI/Abdominal exam: Present: normal bowel sounds, soft, no peritoneal signs. Absent: distended, tenderness - Extremities Exam Extremities exam: Present: full ROM, warm, radial pulses palpable and symetrical. Absent: calf tenderness, cyanotic, pedal edema Internal Medicine: Result - Labs CBC & Chem 7: 06/11/16 05:34 06/11/16 05:34 - ABG Interpretation ABG results: ABG ABG pH 7.45 pH Units (7.32-7.45) 06/11/16 06:18 ABG pCO2 75 mmHg (35-45) H* 06/11/16 06:18 ABG pO2 82 mmHg (85-104) L 06/11/16 06:18 ABG O2 Saturation 96 % (95-98) 06/11/16 06:18 PT/INR, D-dimer PT 12.7 Seconds (9.4-12.1) H 06/05/16 19:48 Consult Discharge Plan - Plan Instructions: Depression (DC), Chronic Obstructive Pulmonary Disease (DC), Pneumonia (DC) Referrals: Javier Reyes MD [Primary Care Provider] - 06/17/16 1:15 pm (Please follow up as schedule....) Prescriptions: Levofloxacin [Levaquin] 750 mg PO DAILY #3 tablet PredniSONE 40 mg PO DAILY 7 Days
== END 2016-06-12 14:37 | disposition home or self-care (01) | DRG 720 ==
LOC: EMEROO 19:06 → ICNU 19:06 → SUATTDRO 06-06 02:41 → 2ANU 06-08 12:51
PROVIDERS: ADMIT Internal Medicine; ATTEND Internal Medicine

== ENCOUNTER 2016-06-14 19:39 | Inpatient (IN) ==
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
--- NOTE | 2016-06-14 20:14 | Emergency Department Note ---
Disposition Clinical Impression: Altered mental status Qualifiers: Altered mental status type: transient alteration of awareness Qualified Code(s) : R40.4 - Transient alteration of awareness Disposition: Admitted As Inpatient Condition: Undetermined Referrals: Unassigned,Provider [Non-Partnered Physician] - Forms: ED Satisfaction Letter Time of Disposition: 00:40 Altered Mental Status HPI - General Chief Complaint: ED Altered Mental Status Stated Complaint: Altered mental status Time Seen by Provider: 06/14/16 19:51 Source: patient, family Mode of arrival: ambulatory Limitations: no limitations Nursing Notes Reviewed: Yes Vital Signs Reviewed: Yes - History of Present Illness HPI Narrative: 55-year-old female recently discharged from the hospital for pneumonia. The patient was intubated at that time. In addition the patient had work up and was discharged from the hospital with altered mental status from her baseline. The family stated that they were told that this was likely due to the patient's metabolic issues associated with her previous intubation and a subsequent illness. The patient has since remained altered for the past 4 days. She is not able to make any sense in her conversation and is not sleeping currently. The family is very worried because the patient is not quite acting herself. Prior to being admitted she was living on her own taking care of her grandson. The family is very worried. The patient has not been charge of her own medications due to family concern of her altered mentation. MD complaint: altered mental status Onset (ago): unknown Associated symptoms: Reports: denies other symptoms - Related Data Home Medications Medication Instructions Recorded Confirmed Alprazolam [Xanax 1 MG Tablet] 1 mg PO TID 06/05/16 06/05/16 Aripiprazole [Abilify] 5 mg PO DAILY 06/05/16 06/05/16 Atorvastatin [Lipitor] 40 mg PO HS 06/05/16 06/05/16 CloNIDine HCl 0.1 mg PO DAILY PRN 06/05/16 06/05/16 Fluticasone/Vilanterol [Breo 1 each IH DAILY 06/05/16 06/05/16 Ellipta 100-25 Mcg INH] HYDROcodone/Acet 7.5/325 mg [[place] 1 tab PO TID PRN 06/05/16 06/05/16 7.5-325 mg] Lisinopril/Hydrochlorothiazide 1 each PO DAILY 06/05/16 06/05/16 [Zestoretic 20-12.5 mg Tablet] Metoprolol [Lopressor] 25 mg PO BID 06/05/16 06/05/16 Paroxetine [Paxil] 30 mg PO DAILY 06/05/16 06/05/16 Previous Rx's Medication Instructions Recorded Levofloxacin [Levaquin] 750 mg PO DAILY #3 tablet 06/12/16 PredniSONE 40 mg PO DAILY 7 Days 06/12/16 Allergies Allergy/AdvReac Type Severity Reaction Status Date / Time No Known Allergies Allergy Verified 10/09/15 18:12 Limitations: ROS unobtainable due to patients medical condition Past Medical History - Past Medical History Attestation: Yes The following information was validated with the patient. Source: patient Medical history: Reports: COPD, hypertension Surgical history: Reports: non-contributory Psychiatric history: Reports: depression - Social History Smoking Status: Former smoker Smokeless Tobacco Status: No Alcohol use: Reports: none Drug use: Reports: none Physical Exam - General Limitations: altered mental status General appearance: alert, in no apparent distress, anxious - Eye Eye exam: Present: normal appearance, PERRL, EOMI - ENT ENT exam: normal exam, normal oropharynx, mucous membranes moist - Neck Neck exam: Present: normal inspection, full ROM, trachea midline - Chest Chest inspection: Present: normal inspection, symmetric chest wall rise - Respiratory Respiratory exam: Present: other (Breath sounds bilaterally with no rails, wheezing, rhonchi) - Cardiovascular Cardiovascular exam: Present: regular rate, normal rhythm, normal heart sounds - Abdominal Exam Abdominal exam: Present: soft, Non-Tender. Absent: tenderness, distention, guarding, rebound, rigidity - Extremities Exam Extremities exam: Present: normal inspection, full ROM. Absent: tenderness, pedal edema - Back Exam Back exam: Present: normal inspection, full ROM. Absent: tenderness - Neurological Exam Neurological exam: Present: alert, CN II-XII intact - Expanded Neurological Exam Patient oriented to: Absent: person, place, time Speech: Present: expressive aphasia Cranial nerves: EOM function (II, III, IV, ): Normal, facial sensation (V): Normal, facial palsy (VII): Normal, gag reflex (IX): Normal, spinal accessory function (XI): Normal, tongue deviation (XII): Normal Motor strength - LUE: 5/5 Motor strength - RUE: 5/5 Motor strength - LLE: 5/5 Motor strength - RLE: 5/5 Upper motor neuron exam: dyana neglect: Absent bilaterally, pronator drift: Absent bilaterally Sensory exam upper extremity: light touch: Normal Sensory exam lower extremity: light touch: Normal DTR: patellar (L): 2+, patellar (R): 2+ Coma Scale Eye Opening: Spontaneous Coma Scale Motor Response: Obeys Commands Coma Scale Verbal Response: Inappropriate Coma Scale Total: 13 - Psychiatric Psychiatric exam: Present: anxious, flat affect - Skin Skin exam: Present: warm, dry, intact, normal color Course - Reevaluation(s) Reevaluation #1: After workup here in the emergency department demonstrates no acute findings, we will admit the patient to the hospital for further workup for altered mental status. Accepted by Dr. Hogue. Time: 00:40 Vital Signs Temperature 99.1 F 06/14/16 19:42 Pulse Rate 97 06/14/16 19:42 Respiratory Rate 18 06/14/16 19:42 Blood Pressure 141/83 06/14/16 19:42 O2 Sat by Pulse Oximetry 96 06/14/16 19:42 Temperature 99.1 F 06/14/16 19:42 Pulse Rate 97 06/14/16 19:42 Respiratory Rate 18 06/14/16 19:42 Blood Pressure 141/83 06/14/16 19:42 O2 Sat by Pulse Oximetry 96 06/14/16 19:42 Oxygen Delivery Oxygen Delivery Room Air Altered Mental Status - Lab Data Result diagrams: 06/14/16 21:30 06/14/16 21:30 Lab Results 06/14/16 06/14/16 06/14/16 Range/Units 20:10 21:30 21:30 WBC 8.6 (4.3-11.1) K/mcL RBC 3.57 L (3.82-4.97) M/mcL Hgb 10.1 L (11.5-15.4) g/dL Hct 31.8 L (35.3-44.9) % MCV 89.1 (83.0-100.0) fL MCH 28.3 (28.0-33.3) pg MCHC 31.8 (31.6-35.5) g/dL RDW 13.5 (11.5-14.5) % Plt Count 245 (140-400) K/mcL MPV 10.4 (9.4-12.4) fL Immature Gran % 0.3 (0-4) % Seg Neutrophils % 92.0 % Lymphocytes % 6.3 % Monocytes % 1.4 % Eosinophils % 0.0 % Basophils % 0.0 % Neutrophils # 7.9 (1.6-8.9) K/mcL Lymphocytes # 0.5 L (0.6-4.6) K/mcL Monocytes # 0.1 (0.0-1.3) K/mcL Eosinophils # 0.0 (0.0-0.6) K/mcL Basophils # 0.0 (0.0-0.2) K/mcL PT 12.8 H (9.4-12.1) Seconds INR 1.2 APTT 29.2 (26.0-36.0) Seconds Sodium (136-145) mEq/L Potassium (3.5-4.5) mEq/L Chloride (98-109) mEq/L Carbon Dioxide (19-29) mEq/L BUN (7-20) mg/dL Creatinine (0.57-1.11) mg/dL Est GFR ( Amer) (> 60) Est GFR (Non-Af Amer) (> 60) BUN/Creatinine Ratio (6-26) Glucose (70-99) mg/dL POC Glucose 144 H (58-89) Calculated Osmolality (280-300) Calcium (8.6-10.8) mg/dL Total Bilirubin (0.2-1.2) mg/dL Direct Bilirubin (0.0-0.5) mg/dL Indirect Bilirubin (0.0-1.2) mg/dL AST (5-34) Units/L ALT (0-55) Units/L Alkaline Phosphatase (38-126) Units/L Troponin I (0-0.03) ng/mL Serum Total Protein (6.0-8.3) g/dL Albumin (3.5-5.0) g/dL Globulin (2.4-3.5) g/dL Albumin/Globulin Ratio (1.1-2.2) TSH (0.350-4.840) mcIU/mL Urine Color (Yellow) Urine Clarity (Clear) Urine pH (5.0-8.0) pH Units Ur Specific [place] (1.010-1.025) Urine Protein (Neg-Trace) mg/dL Urine Glucose (UA) (Normal) mg/dL Urine Ketones (Negative) mg/dL Urine Blood (Negative) Urine Nitrite (Negative) Urine Bilirubin (Negative) Urine Urobilinogen (Normal) mg/dL Ur Leukocyte Esterase (Negative) Urine Microscopic RBC (0-3) per hpf Urine Microscopic WBC (0-3) per hpf Ur Squamous Epith Cells (None-Few) per lpf Urine Bacteria (None-Few) per hpf Hyaline Casts (None-Few) per lpf Ur Culture Indicated? (NO) Salicylates (15-30) mg/dL Urine Opiates Screen (Yxczbx=189) ng/mL Acetaminophen (10-30) mcg/mL Ur Barbiturates Screen (Pzrbju=778) ng/mL Ur Phencyclidine Scrn (Cutoff=25) ng/mL Ur Amphetamines Screen (Ixhpjc=2303) ng/mL U Benzodiazepines Scrn (Auxxnk=670) ng/mL Urine Cocaine Screen (Cutoff= 300) ng/mL U Marijuana (THC) Screen (Cutoff = 50) ng/mL Ethyl Alcohol (0-10) mg/dL 06/14/16 06/14/16 06/14/16 Range/Units 21:30 21:30 22:29 WBC (4.3-11.1) K/mcL RBC (3.82-4.97) M/mcL Hgb (11.5-15.4) g/dL Hct (35.3-44.9) % MCV (83.0-100.0) fL MCH (28.0-33.3) pg MCHC (31.6-35.5) g/dL RDW (11.5-14.5) % Plt Count (140-400) K/mcL MPV (9.4-12.4) fL Immature Gran % (0-4) % Seg Neutrophils % % Lymphocytes % % Monocytes % % Eosinophils % % Basophils % % Neutrophils # (1.6-8.9) K/mcL Lymphocytes # (0.6-4.6) K/mcL Monocytes # (0.0-1.3) K/mcL Eosinophils # (0.0-0.6) K/mcL Basophils # (0.0-0.2) K/mcL PT (9.4-12.1) Seconds INR APTT (26.0-36.0) Seconds Sodium 141 (136-145) mEq/L Potassium 3.7 (3.5-4.5) mEq/L Chloride 96 L (98-109) mEq/L Carbon Dioxide 34 H (19-29) mEq/L BUN 13 (7-20) mg/dL Creatinine 1.19 H (0.57-1.11) mg/dL Est GFR ( Amer) 57 L (> 60) Est GFR (Non-Af Amer) 47 L (> 60) BUN/Creatinine Ratio 11 (6-26) Glucose 121 H (70-99) mg/dL POC Glucose (58-89) Calculated Osmolality 293 (280-300) Calcium 9.3 (8.6-10.8) mg/dL Total Bilirubin 1.3 H (0.2-1.2) mg/dL Direct Bilirubin 0.4 (0.0-0.5) mg/dL Indirect Bilirubin 0.9 (0.0-1.2) mg/dL AST 23 (5-34) Units/L ALT 18 (0-55) Units/L Alkaline Phosphatase 88 (38-126) Units/L Troponin I 0.02 (0-0.03) ng/mL Serum Total Protein 6.4 (6.0-8.3) g/dL Albumin 3.2 L (3.5-5.0) g/dL Globulin 3.2 (2.4-3.5) g/dL Albumin/Globulin Ratio 1.0 L (1.1-2.2) TSH 0.532 (0.350-4.840) mcIU/mL Urine Color Yellow (Yellow) Urine Clarity Clear (Clear) Urine pH 8.0 (5.0-8.0) pH Units Ur Specific [place] 1.013 (1.010-1.025) Urine Protein Negative (Neg-Trace) mg/dL Urine Glucose (UA) Normal (Normal) mg/dL Urine Ketones Trace H (Negative) mg/dL Urine Blood Negative (Negative) Urine Nitrite Negative (Negative) Urine Bilirubin Negative (Negative) Urine Urobilinogen Normal (Normal) mg/dL Ur Leukocyte Esterase Trace H (Negative) Urine Microscopic RBC 0-3 (0-3) per hpf Urine Microscopic WBC 5-15 H (0-3) per hpf Ur Squamous Epith Cells Many H (None-Few) per lpf Urine Bacteria Few (None-Few) per hpf Hyaline Casts None Seen (None-Few) per lpf Ur Culture Indicated? YES A (NO) Salicylates < 5.0 L (15-30) mg/dL Urine Opiates Screen (Ashqzb=648) ng/mL Acetaminophen < 1.0 L (10-30) mcg/mL Ur Barbiturates Screen (Ukuqsq=040) ng/mL Ur Phencyclidine Scrn (Cutoff=25) ng/mL Ur Amphetamines Screen (Bupczj=7301) ng/mL U Benzodiazepines Scrn (Eihhsg=284) ng/mL Urine Cocaine Screen (Cutoff= 300) ng/mL U Marijuana (THC) Screen (Cutoff = 50) ng/mL Ethyl Alcohol < 10 (0-10) mg/dL 06/14/16 Range/Units 22:29 WBC (4.3-11.1) K/mcL RBC (3.82-4.97) M/mcL Hgb (11.5-15.4) g/dL Hct (35.3-44.9) % MCV (83.0-100.0) fL MCH (28.0-33.3) pg MCHC (31.6-35.5) g/dL RDW (11.5-14.5) % Plt Count (140-400) K/mcL MPV (9.4-12.4) fL Immature Gran % (0-4) % Seg Neutrophils % % Lymphocytes % % Monocytes % % Eosinophils % % Basophils % % Neutrophils # (1.6-8.9) K/mcL Lymphocytes # (0.6-4.6) K/mcL Monocytes # (0.0-1.3) K/mcL Eosinophils # (0.0-0.6) K/mcL Basophils # (0.0-0.2) K/mcL PT (9.4-12.1) Seconds INR APTT (26.0-36.0) Seconds Sodium (136-145) mEq/L Potassium (3.5-4.5) mEq/L Chloride (98-109) mEq/L Carbon Dioxide (19-29) mEq/L BUN (7-20) mg/dL Creatinine (0.57-1.11) mg/dL Est GFR ( Amer) (> 60) Est GFR (Non-Af Amer) (> 60) BUN/Creatinine Ratio (6-26) Glucose (70-99) mg/dL POC Glucose (58-89) Calculated Osmolality (280-300) Calcium (8.6-10.8) mg/dL Total Bilirubin (0.2-1.2) mg/dL Direct Bilirubin (0.0-0.5) mg/dL Indirect Bilirubin (0.0-1.2) mg/dL AST (5-34) Units/L ALT (0-55) Units/L Alkaline Phosphatase (38-126) Units/L Troponin I (0-0.03) ng/mL Serum Total Protein (6.0-8.3) g/dL Albumin (3.5-5.0) g/dL Globulin (2.4-3.5) g/dL Albumin/Globulin Ratio (1.1-2.2) TSH (0.350-4.840) mcIU/mL Urine Color (Yellow) Urine Clarity (Clear) Urine pH (5.0-8.0) pH Units Ur Specific [place] (1.010-1.025) Urine Protein (Neg-Trace) mg/dL Urine Glucose (UA) (Normal) mg/dL Urine Ketones (Negative) mg/dL Urine Blood (Negative) Urine Nitrite (Negative) Urine Bilirubin (Negative) Urine Urobilinogen (Normal) mg/dL Ur Leukocyte Esterase (Negative) Urine Microscopic RBC (0-3) per hpf Urine Microscopic WBC (0-3) per hpf Ur Squamous Epith Cells (None-Few) per lpf Urine Bacteria (None-Few) per hpf Hyaline Casts (None-Few) per lpf Ur Culture Indicated? (NO) Salicylates (15-30) mg/dL Urine Opiates Screen Positive H (Xluhaf=921) ng/mL Acetaminophen (10-30) mcg/mL Ur Barbiturates Screen Negative (Oxkkio=994) ng/mL Ur Phencyclidine Scrn Negative (Cutoff=25) ng/mL Ur Amphetamines Screen Negative (Owncja=9463) ng/mL U Benzodiazepines Scrn Positive H (Twznch=916) ng/mL Urine Cocaine Screen Negative (Cutoff= 300) ng/mL U Marijuana (THC) Screen Positive H (Cutoff = 50) ng/mL Ethyl Alcohol (0-10) mg/dL - EKG Data EKG attestation: Yes I reviewed and interpreted this EKG. EKG results narrative: Heart rate 91 bpm. DE interval 120 ms. QTC 321 ms. Normal axis. Normal sinus rhythm. No ST elevation or ST depression noted. EKG is similar to EKG from 06/05/2016. TPA Checklist - LKW: 3-4.5 hrs Add. Contraindications Patient/family understanding: The patient/family members have been counseled and understood the risk, benefit , and alternatives of treatment.
[2016-06-14 21:43] LABS: Hematocrit 31.8 % (35.3-44.9); Hemoglobin 10.1 g/dL (11.5-15.4); Immature Granulocytes % 0.3 % (0-4); Lymphocytes # 0.5 K/mcL (0.6-4.6); Lymphocytes % 6.3 %; Mean Corpuscular HGB Conc 31.8 g/dL (31.6-35.5); Mean Corpuscular Hemoglobin 28.3 pg (28.0-33.3); Mean Corpuscular Volume 89.1 fL (83.0-100.0); Mean Platelet Volume 10.4 fL (9.4-12.4); Monocytes # 0.1 K/mcL (0.0-1.3); Monocytes % 1.4 %; Neutrophils # 7.9 K/mcL (1.6-8.9); Platelet Count 245 K/mcL (140-400); Red Blood Count 3.57 M/mcL (3.82-4.97); Red Cell Distribution Width 13.5 % (11.5-14.5)
[2016-06-14 21:49] LABS: INR 1.2; Prothrombin Time 12.8 Seconds (9.4-12.1)
[2016-06-14 21:52] LABS: Activated Partial Thrombo Time 29.2 Seconds (26.0-36.0)
[2016-06-14 22:22] LABS: Alanine Aminotransferase 18 Units/L (0-55); Albumin 3.2 g/dL (3.5-5.0); Alkaline Phosphatase 88 Units/L (38-126); Aspartate Amino Transferase 23 Units/L (5-34); BUN/Creatinine Ratio 11 (6-26); Bilirubin,Direct 0.4 mg/dL (0.0-0.5); Bilirubin,Indirect 0.9 mg/dL (0.0-1.2); Bilirubin,Total 1.3 mg/dL (0.2-1.2); Blood Urea Nitrogen 13 mg/dL (7-20); Calcium 9.3 mg/dL (8.6-10.8); Carbon Dioxide 34 mEq/L (19-29); Chloride 96 mEq/L (98-109); Globulin 3.2 g/dL (2.4-3.5); Glucose 121 mg/dL (70-99); Osmolality,Calculated 293 (280-300); Potassium 3.7 mEq/L (3.5-4.5); Sodium 141 mEq/L (136-145); Total Protein 6.4 g/dL (6.0-8.3); eGFR For African Americans 57 (> 60); eGFR For Non-African Americans 47 (> 60)
[2016-06-14 22:39] LABS: Bilirubin,Urine Negative (Negative); Blood,Urine Negative (Negative); Clarity,Urine Clear (Clear); Color,Urine Yellow (Yellow); Glucose,Urine (UA) Normal (Normal); Ketones,Urine Trace mg/dL (Negative); Leukocyte Esterase,Urine Trace (Negative); Nitrite,Urine Negative (Negative); Protein,Urine Negative (Neg-Trace); Specific Gravity,Urine 1.013 (1.010-1.025); Urobilinogen,Urine Normal (Normal)
[2016-06-14 22:42] LABS: Hyaline Casts,Urine None Seen per lpf (None-Few); RBC,Urine 0-3 per hpf (0-3); Squamous Epithelial Cell,Urine Many per lpf (None-Few)
[2016-06-14 22:43] LABS: Thyroid Stimulating Hormone 0.532 mcIU/mL (0.350-4.840)
[2016-06-14 22:46] LABS: Amphetamine Screen,Urine Negative ng/mL (Cutoff=1000); Barbiturate Screen,Urine Negative ng/mL (Cutoff=200); Benzodiazepines Screen,Urine Positive ng/mL (Cutoff=200); Cannabinoid Screen,Urine Positive ng/mL (Cutoff = 50); Cocaine Screen,Urine Negative ng/mL (Cutoff= 300); Opiate Screen,Urine Positive ng/mL (Cutoff=300); Phencyclidine Screen,Urine Negative ng/mL (Cutoff=25)
[2016-06-14 22:51] LABS: Bacteria,Urine Few per hpf (None-Few)
[2016-06-14 23:06] LABS: Acetaminophen < 1.0 mcg/mL (10-30); Ethanol < 10 mg/dL (0-10); Salicylate < 5.0 mg/dL (15-30)
[2016-06-15] MEDS ORDERED: *HR* Midazolam HCl 2 MG/2 ML VIAL IVP ONE (01:25)
[2016-06-15] MEDS ORDERED: *HR* Promethazine 25 MG/ML VIAL IVP PRN (03:30)
[2016-06-15] MEDS ORDERED: Naloxone 0.4 MG/ML INJ IVP PRN (03:30)
[2016-06-15] MEDS ORDERED: *HR* LORazepam 2 MG/ML VIAL IVP ONE (03:43)
[2016-06-15] MEDS ORDERED: Water for inj. (sterile) 10 ML IV ONE (03:53)
--- NOTE | 2016-06-15 03:56 | Internal Med History&Physical ---
<TyraApple Ann - Last Filed: 06/15/16 04:22> Date of Encounter: 06/15/16 Time of Encounter: 03:45 Assessment and Plan (1) Acute encephalopathy Status: Acute unclear etiology: high dose steroids, CVA, polypharmacy, catatonia, major depressive, infection, ICU UDS +opiates, +benzo, +marijuana UA:+ LE, Ketones head CT - CXR: b/l airspace disease, atelectasis WBC 8.6 Na 141 K 3.7 Ca 9.3 tsh: .532 check B12, PTH, ACTH, Mg, phos, LA fall and seizure precautions abx coverage for possible UTI discontinue prednisone neuro checks supportive care can consider MRI and neuroconsult if no improvement (2) Catatonia Status: Acute (3) Echolalia Status: Acute (4) Acute kidney injury Status: Resolved BUN 13/CR 1.19 monitor (5) Depression, major, recurrent, in remission Status: Acute continue home meds (6) Altered mental status Status: Acute Qualifiers: Altered mental status type: transient alteration of awareness Qualified Code(s): R40.4 - Transient alteration of awareness (7) UTI (urinary tract infection) Status: Acute UA +LE abx urine ctx supportive care Qualifiers: Urinary tract infection type: site unspecified Hematuria presence: without hematuria Qualified Code(s): N39.0 - Urinary tract infection, site not specified (8) Thrush, oral Status: Acute nystatin Internal Medicine - H&P: HPI Chief complaint: altered mental status Admitted From: Home Plans for Post Hospital Care: Home History of present illness: Ms. Mcdonough is a 55 year old female with AMS. PMHx major depression since of her daughter about 1 year ago. Pt was recently hospitalized for respiratory failure, sepsis, pneumonia, COPD exacerbation on 06/06, intubated in ICU on high dose steroids, fentyl and versed for 4-5 days. She was discharged on 06/12 under the care of her sister. Her sister states that since that time she has not been herself. She has been "acting out", making inappropriate comments and repeating people's conversations around her. Sister states that this has been constant since discharge from the hospital and has not gotten better. In addition pt has not slept since being home and gets agitated and violent at times. Prior to last hospital admission she was caring for her 7yo grandson,successfully dealing with her depression and had no functional issues. Pt states she has no CP, SOB, numbness/tingling. Past Med Surg Social Fam HX - Past Medical History Medical history: COPD, hypertension Psychiatric history: depression - Past Surgical History Surgical History: non-contributory - Social History Smoking Status: Former smoker Smokeless Tobacco Status: No Alcohol use: none Drug use: none Internal Medicine - H&P: Meds Alprazolam [Xanax 1 MG Tablet] 1 mg PO TID 06/05/16 [History] Aripiprazole [Abilify] 5 mg PO DAILY 06/05/16 [History] Atorvastatin [Lipitor] 40 mg PO HS 06/05/16 [History] CloNIDine HCl 0.1 mg PO DAILY PRN 06/05/16 [History] Fluticasone/Vilanterol [Breo Ellipta 100-25 Mcg INH] 1 each IH DAILY 06/05/16 [ History] HYDROcodone/Acet 7.5/325 mg [[place] 7.5-325 mg] 1 tab PO TID PRN 06/05/16 [ History] Lisinopril/Hydrochlorothiazide [Zestoretic 20-12.5 mg Tablet] 1 each PO DAILY [History] Metoprolol [Lopressor] 25 mg PO BID 06/05/16 [History] Paroxetine [Paxil] 30 mg PO DAILY 06/05/16 [History] PredniSONE 40 mg PO DAILY 7 Days 06/12/16 [Rx] L. Rhamnosus GG/Inulin [Culturelle Chewable Tablet] 1 each PO DAILY #30 tab.chew 06/16/16 [Rx] Allergies No Known Allergies Allergy (Verified 10/09/15 18:12) All Systems PM: A 10-system review of systems was performed and is negative for pertinent findings except as documented above in the HPI. - Constitutional Constitutional: no chills, no fever(s), no night sweats - EENT Eyes: no change in vision, no discharge, no pain, no photophobia Ears: no ear discharge, no ear pain, no tinnitus Nose, mouth and throat: no dysphagia, no nasal discharge, no neck pain, no sore throat - Cardiovascular Cardiovascular ROS IM: no chest pain, no diaphoresis, no dyspnea, no lightheadedness, no palpitations, no syncope - Respiratory Respiratory: no cough, no dyspnea, no wheezing, no excessive phlegm production - Gastrointestinal Gastrointestinal: no abdominal pain, no diarrhea, no hematemesis, no hematochezia, no melena, no nausea, no vomiting - Genitourinary Genitourinary: no change in urinary stream, no dysuria, no flank pain, no hematuria - Musculoskeletal Musculoskeletal ROS IM: no numbness, no tingling - Integumentary Integumentary IM: no rash, no unusual bruising - Neurological Neurological ROS: abnormal movements, abnormal speech, behavioral changes, confusion, no convulsions, no focal weakness, no numbness, no tingling, no tremor(s) - Psychiatric Psychiatric: abnormal sleep pattern, behavioral changes, change in appetite, confusion, depression, irritability, mood swings - Hematologic/Lymphatic Hematologic/Lymphatic: no easy bruising - Constitutional Vitals: Temp Pulse Resp BP Pulse Ox 98.5 F 118 16 103/43 92 06/15/16 02:17 06/15/16 02:17 06/15/16 02:17 06/15/16 02:17 06/15/16 02:17 General appearance: Present: disheveled, A&O X 2 - Eye Eye exam: Present: EOMI, PERRL, conjuntiva pink, sclera anicteric Pupils: Present: PERRL - ENT ENT exam: Present: mucous membranes dry Additional comments: thrush on tongue - Neck Neck exam general surgery: Present: supple, trachea midline. Absent: lymphadenopathy - Respiratory Respiratory exam: Present: CTAB. Absent: accessory muscle use, rales, rhonchi, wheezes - Cardiovascular Cardiovascular exam: Present: RRR, +S1, +S2. Absent: diastolic murmur, gallop, rubs, systolic murmur - GI/Abdominal GI/Abdominal exam: Present: normal bowel sounds, soft, no peritoneal signs. Absent: distended, tenderness Additional comments: some mild healing bruising - Extremities Exam Extremities exam: Present: warm, radial pulses palpable and symetrical. Absent : calf tenderness, cyanotic, pedal edema - Neurological Exam Neurological exam: Present: altered, CN II-XII intact, no focal deficits, strengths equal and symetr throughout, speech deficit (ecolalia). Absent: facial droop - Expanded Neurological Exam Neurological exam expanded: Present: expressive aphasia, inattentive Patient oriented to: Present: person, place Speech: Present: expressive aphasia, garbled (echolalia, with echopraxia) Cranial Nerves: EOM's intact PM: Normal, gag reflex PM: Normal, tongue deviation PM: Normal Sensory exam: lower extremity light touch: Normal, upper extremity light touch: Normal Neuro motor strength exam: LUE: 5, RUE: 5, LLE: 5, RLE: 5 Coma Scale Eye Opening: Spontaneous Coma Scale Motor Response: Obeys Commands Coma Scale Verbal Response: Oriented Coma Scale Total: 15 - Psychiatric Psychiatric exam: Present: agitated, anxious, depressed Additional comments: while in room pt went from anxiously repeating the people around her to crying about the of her daughter last year to agitated and angry trying to kick her sister - Skin Skin exam: Present: dry, intact Additional comments: minimal healing bruising on abdomen Internal Med - H&P Results - Labs CBC & Chem 7: 06/14/16 21:30 06/14/16 21:30 <Carmenza Hogue - Last Filed: 06/18/16 14:06> Date of Encounter: 06/15/16 Internal Medicine - H&P: HPI History of present illness: Ms. Mcdonough is a 55 year old female All Systems PM: A 10-system review of systems was performed and is negative for pertinent findings except as documented above in the HPI. - Constitutional Vitals: Temp Pulse Resp BP Pulse Ox 98.1 F 87 16 96/50 90 06/16/16 15:14 06/16/16 15:14 06/16/16 15:14 06/16/16 15:14 06/16/16 15:14 Internal Med - H&P Results - Labs CBC & Chem 7: 06/16/16 02:54 06/16/16 12:55 - Attending Attestation I performed a history and physical examination of the patient and discussed the management with the reisident/Waste Water Operator. I reviewed resident/buying intern's note and agree with the documented findings and plan of care. 55 Y/F with recent hospitalization for respirtatoy failure and needed intubation / mechanical ventilation. She is brought to the ER with c/o has been "acting out", making inappropriate comments and repeating people's conversations around her. Her Sister apparently stated that this has been constant since discharge from the hospital and has not gotten better. O/E: pt has echolalia and echopraxia. disoriented and confused. Urinalysis shows trace leucocyte esterase. U tox +ve for THC. CT head shows no acute abnormality. A/P: Acute encephalopathy: Possibly due to high dose steroids Versus catatonia - Hold steroids. will give her a dose of ativan. Psychiatry / Neurology consult.
[2016-06-15 04:32] LABS: Magnesium 1.1 mg/dL (1.6-2.6); Phosphorous 2.3 mg/dL (2.3-4.7)
[2016-06-15] MEDS: Nystatin SUSP 5 ML UD.LIQ BC SCH ×5 (04:52→20:03)
[2016-06-15] MEDS: *HR* Heparin 5,000 UNIT/ML VIAL SQ SCH ×2 (05:46→16:49)
[2016-06-15] MEDS: Pantoprazole 40 MG VIAL IVP SCH (05:46)
[2016-06-15] MEDS ORDERED: Levofloxacin 750 MG/150 ML 750 MG/150 ML BAG IVPB SCH (09:00)
--- NOTE | 2016-06-15 12:59 | Event Note ---
Date of Encounter: 06/15/16 Time of Encounter: 09:30 Patient seen and examined. On examination, patient initially asleep and awakened easily to voice and light touch. She states she is exhausted and sleepy. She states she is eating well and currently denies pain. She states that she wants to go home. At times, her speech is unintelligible and I am unable to follow her in conversation at times but she is able to answer all orientation questions correctly. Her altered mental status is likely multifactorial including her urinary tract infection and her polypharmacy. Tox screen positive for opiates, benzos, and marijuana. Continue levofloxacin with urine culture pending. Chest x-ray unremarkable for acute processes. Head CT negative. Mild hypomagnesemia noted, will replete. Mild acute kidney injury suggestive of dehydration. We will keep her overnight for further hydration and awaiting urine culture especially given the fact that she was just intubated in the ICU last week. She is able to answer all orientation questions however there are times when her speech becomes unintelligible and I am unable to understand what she is saying. She also fell asleep in the middle of her sons is several times while we were conversing. Again multifactorial. We will continue to monitor her. Vital signs are stable. No signs of sepsis. Good aeration throughout. She is perfusing well. Slightly pale but capillary refill brisk in all 4 extremities. Will await arrival of family to gain a better understanding on her baseline but she appears overmedicated to me, so will hold sedating medications until she becomes more alert. Patient did state that she feels as if she takes Seroquel that it makes her crazy and makes her loopy. She is not on this medication at home, but there was a dose ordered in the emergency department but I cannot see that it was signed off in the MAR, so I am unsure whether or not this patient got it. In any event, she would not be given Seroquel during the rest of this admission. If she is absolutely insistent upon going home, which she currently is not, we will need to possibly consider a pink slip as I do not feel that she is currently able to go home given her intermittent periods of confusion. Hopefully this will not become an issue. ITS Impressions Chest X-Ray 06/14/16 19:51 IMPRESSION: Probable COPD with chronic lung changes. Discoid atelectasis at the left lung base. No acute cardiopulmonary disease. D/ / Abundio Krishnamurthy MD / Abundio Krishnamurthy MD Interpreting Provider: Abundio Krishnamurthy MD Head CT 06/14/16 19:57 IMPRESSION: No acute intracranial abnormality. D/ / Solis Parkinson MD / Solis Parkinson MD Interpreting Provider: Solis Parkinson MD
[2016-06-15] MEDS ORDERED: predniSONE 20 MG TABLET PO SCH (13:00)
[2016-06-15] MEDS ORDERED: cloNIDine HCl 0.1 MG TABLET PO PRN (13:00)
[2016-06-15] MEDS ORDERED: Magnesium Sulfate 2 GM in D5% in Water 100 ML IVPB ONE (13:00)
[2016-06-15] MEDS: ARIPiprazole 5 MG TABLET PO SCH (14:10)
[2016-06-15] MEDS ORDERED: *HR* HYDROcodone/Acet 7.5/325 mg TABLET PO PRN (16:48)
--- NOTE | 2016-06-15 16:49 | Event Note ---
Date of Encounter: 06/15/16 Time of Encounter: 16:30 Patient seen and reexamined. She is now alert and oriented 3 and completely lucid. Her mom is at the bedside and they had several questions regarding the cause of her altered mental status. Questions answered at this time. We will resume the patient's controlled medications to prevent withdrawal now that she is lucid. Awaiting urine sensitivities and likely discharge after they are received. Patient denies suicidal ideation but continues to endorse severe depression resultant from her daughter's overdose approximately 1 year ago.
[2016-06-15] MEDS: ALPRAZolam 1 MG TABLET PO SCH ×2 (16:54→20:04)
[2016-06-16 03:26] LABS: Hematocrit 28.4 % (35.3-44.9); Hemoglobin 9.2 g/dL (11.5-15.4); Immature Granulocytes % 0.6 % (0-4); Lymphocytes % 10.3 %; Mean Corpuscular HGB Conc 32.4 g/dL (31.6-35.5); Mean Corpuscular Hemoglobin 29.1 pg (28.0-33.3); Mean Corpuscular Volume 89.9 fL (83.0-100.0); Mean Platelet Volume 10.6 fL (9.4-12.4); Monocytes # 0.3 K/mcL (0.0-1.3); Monocytes % 3.5 %; Neutrophils # 8.1 K/mcL (1.6-8.9); Platelet Count 258 K/mcL (140-400); Red Blood Count 3.16 M/mcL (3.82-4.97); Segmented Neutrophils % 85.6 %
[2016-06-16 03:41] LABS: Calcium 8.8 mg/dL (8.6-10.8); Magnesium 1.9 mg/dL (1.6-2.6); Potassium 3.8 mEq/L (3.5-4.5)
[2016-06-16] MEDS: Pantoprazole 40 MG VIAL IVP SCH (05:21)
[2016-06-16] MEDS: *HR* Heparin 5,000 UNIT/ML VIAL SQ SCH ×2 (05:21→17:16)
[2016-06-16] MEDS: ALPRAZolam 1 MG TABLET PO SCH ×2 (06:54→14:05)
[2016-06-16] MEDS: Nystatin SUSP 5 ML UD.LIQ BC SCH ×3 (07:55→17:16)
[2016-06-16] MEDS: ARIPiprazole 5 MG TABLET PO SCH (07:55)
[2016-06-16] MEDS ORDERED: 0.9 % Sodium Chloride 1,000 ML IVC ONE (08:43)
--- NOTE | 2016-06-16 09:21 | Electrocardiograph Report ---
[place] [id number] Test Date: 2016-06-14 Pat Name: Apolonia Mcdonough Department: 102 Room: 3B Gender: F Rn Home Health: [facility] : 1960 Requested By: Kris Galvin Order Number: [id number] Reading MD: Sergey Mora MD Measurements Intervals [place] Rate: 91 P: 55 OK: 120 QRS: 46 QRSD: 71 T: 22 QT: 272 QTc: 321 Interpretive Statements SINUS RHYTHM LEFT ATRIAL ENLARGEMENT Electronically Signed On 06-16-2016 9:20:13 EDT by Sergey Mora MD
[2016-06-16 13:13] LABS: BUN/Creatinine Ratio 19 (6-26); Blood Urea Nitrogen 21 mg/dL (7-20); Calcium 8.6 mg/dL (8.6-10.8); Carbon Dioxide 27 mEq/L (19-29); Chloride 104 mEq/L (98-109); Glucose 94 mg/dL (70-99); Osmolality,Calculated 293 (280-300); Potassium 3.2 mEq/L (3.5-4.5); Sodium 140 mEq/L (136-145); eGFR For African Americans > 60 (> 60); eGFR For Non-African Americans 50 (> 60)
--- NOTE | 2016-06-16 16:03 | Discharge Summary ---
Date of Encounter: 06/16/16 Time of Encounter: 14:30 - Discharge Diagnosis (1) Acute encephalopathy Priority: Primary Status: Resolved Comments: Patient alert and oriented 3 on day of discharge. Likely related to polypharmacy mixed with insomnia. Follow-up up outpatient (2) Acute kidney injury Priority: Primary Status: Resolved Comments: Nearly resolved on the discharge with bolus. Patient encouraged to drink water after discharge. (3) DVT prophylaxis Priority: Primary Status: Acute Comments: Subcutaneous heparin while admitted (4) Depression, major, recurrent, in remission Priority: Primary Status: Chronic Comments: Patient has clearly not began to heal recover from the of her daughter last year. She states her daughter overdosed almost 1 year ago. She has been set up with Dr. Crooks outpatient for psychiatric follow-up. She denies suicidal ideations. (5) Catatonia Priority: Primary Status: Resolved (6) Echolalia Priority: Primary Status: Resolved (7) UTI (urinary tract infection) Priority: Primary Status: Ruled-out Comments: Urine culture negative. No leukocytosis. Patient denies dysuria. No indication for antibiotics upon disposition. Qualifiers: Urinary tract infection type: site unspecified Hematuria presence: without hematuria Qualified Code(s): N39.0 - Urinary tract infection, site not specified (8) Thrush, oral Priority: Primary Status: Acute Comments: Continue nystatin upon discharge (9) Polypharmacy Priority: Secondary Status: Chronic Comments: Patient's tox screen was positive for opiates, benzos, and marijuana. Her [facility] reported checks out for opiates and benzos prescribed by her primary care provider. - Discharge Medications Prescriptions: L. Rhamnosus GG/Inulin [Culturelle Chewable Tablet] 1 each PO DAILY #30 tab.chew Home Medications: Alprazolam [Xanax 1 MG Tablet] 1 mg PO TID 06/05/16 [History] Aripiprazole [Abilify] 5 mg PO DAILY 06/05/16 [History] Atorvastatin [Lipitor] 40 mg PO HS 06/05/16 [History] CloNIDine HCl 0.1 mg PO DAILY PRN 06/05/16 [History] Fluticasone/Vilanterol [Breo Ellipta 100-25 Mcg INH] 1 each IH DAILY 06/05/16 [ History] HYDROcodone/Acet 7.5/325 mg [Bud 7.5-325 mg] 1 tab PO TID PRN 06/05/16 [ History] Lisinopril/Hydrochlorothiazide [Zestoretic 20-12.5 mg Tablet] 1 each PO DAILY [History] Metoprolol [Lopressor] 25 mg PO BID 06/05/16 [History] Paroxetine [Paxil] 30 mg PO DAILY 06/05/16 [History] PredniSONE 40 mg PO DAILY 7 Days 06/12/16 [Rx] L. Rhamnosus GG/Inulin [Culturelle Chewable Tablet] 1 each PO DAILY #30 tab.chew 06/16/16 [Rx] Allergies/Adverse Reactions: Allergies No Known Allergies Allergy (Verified 10/09/15 18:12) Date of admission: 06/15/16 05:34 Primary care physician: PCP NO Discharging clinician: Karie Aldridge Anticipated date of discharge: 06/16/16 - Patient Status Disposition: Home, Self-Care Condition: Fair Functional capacity at discharge: independent ambulation Overall status at discharge: patient is progressing back to baseline - Discharge Instructions Follow Up With: Ally Crooks MD [Partnered Physician] - 08/05/16 9:00 am Javier Reyes MD [Partnered Physician] - 06/17/16 1:15 pm Additional Instructions: Follow-up with primary care provider and psychiatrist as scheduled - Diet and Activity Activity: increase activity as tolerated Diet: low salt diet Hospital course: Ms. Mcdonough is a 55 year old female with past history of COPD, hypertension, depression. Patient was recently hospitalized in the intensive care unit for respiratory failure, sepsis, pneumonia, COPD exacerbation from 06/06/16 until 06/12. She was intubated and in the ICU for 4-5 days. Since discharge, she has been staying with her sister and her sister states that she has not been herself. Her sister states she has been "acting out" and making inappropriate comments constantly since being discharged. Sister also states that the patient has not slept since getting discharged and gets agitated and violent at times. Regarding her baseline, prior to her hospitalization, she was independently taking care of her 7-year-old grandson. Workup in the emergency department notable for an abnormal urinalysis. Chest x-ray negative for acute processes. CT negative. Patient was admitted to the hospitalist service for further evaluation and management. Patient was treated with levofloxacin while admitted. Initially, patient was drowsy on examination but on day of discharge , she was alert and oriented 3 and back to her baseline. Her urine culture was negative and a urinary tract infection was ruled out. She had mild acute kidney injury that resolved with IV. Hypomagnesemia resolved. Likely cause of patient's altered mental status was polypharmacy and sleep deprivation. Tox screen was positive for opiates, benzos, and marijuana. His report checked out for opiates and benzos and she was cautioned to avoid marijuana. During this admission, patient was tearful several times stating she missed her daughter. She lost her daughter last year to an overdose. Patient has been set up with Dr. Crooks for outpatient psychiatry. She denied suicidal ideation during this admission. She was ambulatory about her roommate about the unit without any difficulty. She is discharged home in stable condition with close outpatient follow-up recommended. ITS Impressions Chest X-Ray 06/14/16 19:51 IMPRESSION: Probable COPD with chronic lung changes. Discoid atelectasis at the left lung base. No acute cardiopulmonary disease. D/ / Abundio Krishnamurthy MD / Abundio Krishnamurthy MD Interpreting Provider: Abundio Krishnamurthy MD Head CT 06/14/16 19:57 IMPRESSION: No acute intracranial abnormality. D/ / Solis Parkinson MD / Solis Parkinson MD Interpreting Provider: Solis Parkinson MD - Time Spent with Patient Total time spent providing and/or coordinating discharge services: - Constitutional Vitals: Temp Pulse Resp BP Pulse Ox 98.1 F 87 16 96/50 90 06/16/16 15:14 06/16/16 15:14 06/16/16 15:14 06/16/16 15:14 06/16/16 15:14 General appearance: Present: A&O X 3, pleasant, no acute distress, answers questions appropriately - Head Head exam: Present: atraumatic, normocephalic - Eye Eye exam: Present: PERRL, conjuntiva pink, sclera anicteric Pupils: Present: PERRL - Neck Neck exam general surgery: Present: supple, trachea midline. Absent: lymphadenopathy - Respiratory Respiratory exam: Present: CTAB. Absent: accessory muscle use, rales, respiratory distress, rhonchi, wheezes - Cardiovascular Cardiovascular exam: Present: RRR, +S1, +S2. Absent: diastolic murmur, gallop, rubs, systolic murmur - GI/Abdominal GI/Abdominal exam: Present: normal bowel sounds, soft, no peritoneal signs. Absent: distended, tenderness - Extremities Exam Extremities exam: Present: warm, radial pulses palpable and symetrical. Absent : calf tenderness, cyanotic, pedal edema - Neurological Exam Neurological exam: Present: alert, CN II-XII intact, normal gait, oriented X3, no focal deficits, strengths equal and symetr throughout. Absent: pronater drift, facial droop, speech deficit - Skin Skin exam: Present: dry, intact, normal color, warm
[2016-06-16 18:46] VITALS: BP 96/50
[2016-06-17] MEDS ORDERED: Levofloxacin 750 MG/150 ML 750 MG/150 ML BAG IVPB SCH (09:00)
== END 2016-06-16 17:44 | disposition home or self-care (01) | DRG 469 ==
LOC: 3BNU 19:39 → EMEROO 19:39 → 3BNU 06-15 01:45
PROVIDERS: ADMIT Internal Medicine; ATTEND Nurse Practitioner Family

== ENCOUNTER 2017-04-17 05:20 | Inpatient (IN) ==
--- NOTE | 2017-04-17 08:11 | Internal Med History&Physical ---
Date of Encounter: 04/17/17 Time of Encounter: 08:06 Assessment and Plan (1) NSTEMI (non-ST elevated myocardial infarction) Current visit: Yes Status: Acute recurrent chest pain with troponin 0.165 consistent with non-STEMI trend troponin and consult cardiology (2) Acute exacerbation of chronic obstructive airways disease Current visit: No Status: Acute Acute on chronic COPD exacerbation (3) COPD exacerbation Current visit: No Status: Acute (4) Depression, major, recurrent, in remission Current visit: No Status: Chronic Chronic we will continue current home medication (5) Acute and chronic respiratory failure Current visit: Yes Status: Acute Acute on chronic respiratory failure with hypercapnia and hypoxemia patient actively wheezing but stable on BiPAP was started on steroids and DuoNeb consult pulmonology Qualifiers: Respiratory failure complication: hypoxia and hypercapnia Qualified Code(s) : J96.21 - Acute and chronic respiratory failure with hypoxia; J96.22 - Acute and chronic respiratory failure with hypercapnia; J96.22 - Acute and chronic respiratory failure with hypercapnia; J96.22 - Acute and chronic respiratory failure with hypercapnia Internal Medicine - H&P: HPI Chief complaint: chest pain and sob Admitted From: Emergency Dept Plans for Post Hospital Care: Home History of present illness: Ms. Mcdonough is a 56 year old female Patient with history of very severe COPD FEV1 of 23%, hypertension, obesity, depression, patient presented to [facility] with 3 days of progressive worsening shortness of breath also chest pain she describes as pressure last about 10-15 minutes and recurrent patient continued to smoke ABG today shows a PCO2 of 86 and PO2 of 53 she was placed on BiPAP EKG was within normal limits troponin 0.165 on arrival patient is on BiPAP currently no chest pain. more comfortable on BiPAP. Blood pressure 124/72 temperature 77.2 recent echo last last leola EF 65% Past Med Surg Social Fam HX - Past Medical History Medical history: COPD, hypertension Psychiatric history: depression - Past Surgical History Surgical History: non-contributory - Social History Smoking Status: Former smoker Smokeless Tobacco Status: No Alcohol use: none Drug use: none Internal Medicine - H&P: Meds ALPRAZolam [Xanax 1 MG Tablet] 1 mg PO TID 06/05/16 [History] Aripiprazole [Abilify] 5 mg PO DAILY 06/05/16 [History] Atorvastatin [Lipitor] 40 mg PO HS 06/05/16 [History] Fluticasone/Vilanterol [Breo Ellipta 100-25 Mcg INH] 1 each IH DAILY 06/05/16 [ History] HYDROcodone/Acet 7.5/325 mg [[place] 7.5-325 mg] 1 tab PO TID PRN 06/05/16 [ History] Lisinopril/Hydrochlorothiazide [Zestoretic 20-12.5 mg Tablet] 1 each PO DAILY [History] Metoprolol [Lopressor] 25 mg PO BID 06/05/16 [History] Paroxetine [Paxil] 30 mg PO DAILY 06/05/16 [History] cloNIDine HCl [CloNIDine HCl] 0.1 mg PO DAILY PRN 06/05/16 [History] predniSONE [PredniSONE] 40 mg PO DAILY 7 Days tablet 06/12/16 [Rx] L. Rhamnosus GG/Inulin [Culturelle Chewable Tablet] 1 each PO DAILY #30 tab.chew 06/16/16 [Rx] HYDROcodone/Acet 5/325 mg [[place] 5-325 mg] 1 tab PO Q6H PRN #10 tab 12/28/16 [Rx ] 3 Allergy/AdvReac Type Severity Reaction Status Date / Time No Known Allergies Allergy Verified 12/28/16 14:38 All Systems PM: A 10-system review of systems was performed and is negative for pertinent findings except as documented above in the HPI. - Constitutional Constitutional: fatigue, lethargy - EENT Eyes: no change in vision, no discharge, no pain, no photophobia Ears: no ear discharge, no ear pain, no tinnitus Nose, mouth and throat: no dysphagia, no nasal discharge, no neck pain, no sore throat - Cardiovascular Cardiovascular ROS IM: chest pain, dyspnea, dyspnea on exertion - Respiratory Respiratory: dyspnea, dyspnea on exertion, wheezing - Gastrointestinal Gastrointestinal: no abdominal pain, no diarrhea, no hematemesis, no hematochezia, no melena, no nausea, no vomiting - Genitourinary Genitourinary: no change in urinary stream, no dysuria, no flank pain, no hematuria - Musculoskeletal Musculoskeletal ROS IM: no numbness, no tingling - Constitutional Vitals: Temp Pulse Resp BP Pulse Ox 97.8 F 70 18 121/70 97 04/17/17 07:43 04/17/17 07:43 04/17/17 07:43 04/17/17 07:43 04/17/17 07:43 General appearance: Present: mild distress - Eye Eye exam: Present: PERRL, conjuntiva pink, sclera anicteric Pupils: Present: PERRL - Neck Neck exam general surgery: Present: supple, trachea midline. Absent: lymphadenopathy - Respiratory Respiratory exam: Present: prolonged expiratory phase, rhonchi, wheezes - Cardiovascular Cardiovascular exam: Present: RRR, +S1, +S2. Absent: diastolic murmur, gallop, rubs, systolic murmur - GI/Abdominal GI/Abdominal exam: Present: normal bowel sounds, soft, no peritoneal signs. Absent: distended, tenderness - Extremities Exam Extremities exam: Present: warm, radial pulses palpable and symmetrical. Absent : calf tenderness, cyanotic, pedal edema
[2017-04-17] MEDS ORDERED: Naloxone 0.4 MG/ML INJ IVP PRN (08:16)
[2017-04-17] MEDS ORDERED: Acetaminophen 325 MG TABLET PO PRN (08:16)
[2017-04-17] MEDS ORDERED: traMADol 50 MG TABLET PO PRN (08:16)
[2017-04-17] MEDS ORDERED: Ipratropium/Albuterol Neb 3 ML IH PRN (08:21)
--- NOTE | 2017-04-17 08:35 | Pulmonology Consult Note ---
Date of Encounter: 04/17/17 Time of Encounter: 08:34 Assessment and Plan (1) Acute and chronic respiratory failure Current Visit: Yes Status: Acute This appears likely secondary to COPD exacerbation complicated by hydrostatic pulmonary edema. Was operatively impressed with the venous blood gas with regards to need for noninvasive positive pressure ventilation and this is supported physical examination however can continue BiPAP as needed for easy work of breathing Okay to transitioned to nasal cannula to keep oxygen saturations greater than 89 % around 92% Encourage incentive spirometry out of the chair and early ambulation as tolerated and is clinically prudent Qualifiers: Respiratory failure complication: hypoxia and hypercapnia Qualified Code(s) : J96.21 - Acute and chronic respiratory failure with hypoxia; J96.22 - Acute and chronic respiratory failure with hypercapnia; J96.22 - Acute and chronic respiratory failure with hypercapnia; J96.22 - Acute and chronic respiratory failure with hypercapnia (2) Acute exacerbation of chronic obstructive airways disease Current Visit: No Status: Acute COPD exacerbation in a patient with severe advanced COPD Spend respiratory infection panel, sputum culture, and blood culture Check chest x-ray if no evidence of pneumonia would add azithromycin to complete 5 day course Methylprednisolone 40 mg twice a day with plan to transition to prednisone 40 mg daily to complete two-week taper likely starting tomorrow Schedule bronchodilators (duo nebs) every 4 hours with hourly albuterol as needed Optimization of out patient COPD regimen Follow-up pulmonary (3) Elevated brain natriuretic peptide (BNP) level Current Visit: Yes Status: Acute Suspected heart failure with preserved ejection fraction given dilated left atrium last echocardiogram BNP elevated would add IV Lasix with daily monitoring of serum creatinine and electrolytes prior to initiation of diuresis consider administration of magnesium given the low level at outside facility (4) Elevated troponin Current Visit: Yes Status: Acute This is likely demand ischemia however patient has multiple risk factors for coronary artery disease including the presence of COPD and continued tobacco abuse she is not been evaluated by cardiology on an inpatient basis and the last 2 admissions both times it had elevated troponin likely associated with respiratory failure and critical illness however given elevated BNP troponin and may be appropriate to consult cardiology and at the very least she will need outpatient evaluation. Given year interval since last echocardiogram is also reasonable to repeat TTE at this time (5) DVT prophylaxis Current Visit: No Status: Acute Per routine inpatient recommendations (6) Tobacco abuse counseling Current Visit: Yes Status: Acute Tobacco abuse counseling given History of Present Illness Consult date: 04/17/17 Requesting physician: Rylan Linton Reason for consult: COPD Chief complaint: Difficulty in Breathing History of present illness: Pleasant 56-year-old woman with a past medical history of very severe COPD with FEV1 less than 25% on long-term oxygen therapy presented to [facility] with 2 day history of progressive dyspnea and chest heaviness, cough and subjective fever. She states that she went to her PCP office on Thursday of last week and was feeling excellent no problems but metal part of this week she started having worsening symptoms. I had the pleasure taking care of her about a year ago when she was admitted with septic shock subsequent to that discharge she says she has not been in the hospital. Unfortunately she continues to smoke. Denies night sweats chills hemoptysis lower extremity edema In the outside hospital she was started on BiPAP and transferred to [place] BiPAP was been continued here Outside hospital records personally reviewed Venous ABG 7.33/88/53 CBC 9/14/42/287 Chemistry 138/3.9/94/37/9/0.82/114 Troponin 0.165 INR 0.93 NT BNP 8854 Magnesium 1.3 LFTs unremarkable Influenza A and B (-) per nasal swab ECG normal sinus rhythm possible left atrial enlargement Past Med Surg Social Fam HX - Past Medical History Medical history: COPD, hypertension Psychiatric history: depression - Past Surgical History Surgical History: non-contributory - Social History Smoking Status: Former smoker Smokeless Tobacco Status: No Alcohol use: none Drug use: none Medications and Allergies ALPRAZolam [Xanax 1 MG Tablet] 1 mg PO TID 06/05/16 [History] Aripiprazole [Abilify] 5 mg PO DAILY 06/05/16 [History] Atorvastatin [Lipitor] 40 mg PO HS 06/05/16 [History] Lisinopril/Hydrochlorothiazide [Zestoretic 20-12.5 mg Tablet] 1 each PO DAILY [History] Metoprolol [Lopressor] 25 mg PO BID 06/05/16 [History] Paroxetine [Paxil] 30 mg PO DAILY 06/05/16 [History] cloNIDine HCl [CloNIDine HCl] 0.1 mg PO DAILY PRN 06/05/16 [History] Budesonide/Formoterol 160/4.5 [Symbicort 160/4.5] 2 puff IH BIDR 04/17/17 [ History] Ipratropium/Albuterol Neb [Duoneb] 3 ml IH Q6HR PRN 04/17/17 [History] Meloxicam [Mobic] 15 mg PO DAILY 04/17/17 [History] Oxybutynin Chloride [Ditropan Xl] 5 mg PO DAILY 04/17/17 [History] 3 Allergy/AdvReac Type Severity Reaction Status Date / Time No Known Allergies Allergy Verified 12/28/16 14:38 All Systems: A 10-system review of systems was performed and is negative for pertinent findings except as documented above in the HPI. Physical Examination Vital Signs: Vital Signs, Last 4 Hours Temp Pulse Resp BP Pulse Ox 04/17/17 08:10 97 04/17/17 07:43 97.8 F 70 18 121/70 97 04/17/17 07:35 95 General appearance: no acute distress Eyes: nonicteric ENT: oropharynx moist Effort: mildly labored Auscultation: bilateral: wheezes, rhonchi, other (Faint crackles in lower lung bases) Cardiovascular: regular rate and rhythm Gastrointestinal: normoactive bowel sounds Integumentary: normal Extremities: no cyanosis, no edema, no clubbing Musculoskeletal: no deformities normal mental status, non-focal exam mood appropriate Results - Clinical Findings Intake & Output: Intake & Output 04/16/17 04/17/17 04/17/17 23:59 07:59 15:59 Weight 71.1 kg Consult Discharge Plan - Plan Referrals: Javier Reyes MD [Primary Care Provider] -
[2017-04-17] MEDS: Ipratropium/Albuterol Neb 3 ML IH SCH ×4 (11:24→23:51)
[2017-04-17] MEDS: 0.9 % Sodium Chloride 1,000 ML IVC SCH (12:06)
[2017-04-17] MEDS: Isosorbide MONOnitrate (24 HR) 30 MG TAB.ER.24H PO SCH (12:06)
[2017-04-17] MEDS: ARIPiprazole 5 MG TABLET PO SCH (12:06)
[2017-04-17] MEDS: Lisinopril-HCTZ 20-12.5mg TABLET PO SCH (12:07)
[2017-04-17] MEDS: (Fluticasone/Vilanterol [Breo Ellipta 100-25 Mcg Inh]) IH SCH (12:08)
[2017-04-17] MEDS: Aspirin 81 MG TAB.CHEW PO SCH (12:08)
[2017-04-17] MEDS: ALPRAZolam 1 MG TABLET PO SCH ×3 (12:09→20:21)
[2017-04-17 13:38] LABS: ABG Base Excess 10 mEq/L (-2 to 3); ABG HCO3 36 mEq/L (21-27); ABG Oxygen Saturation 93 % (95-98); ABG PCO2 53 mmHg (35-45); ABG PH 7.44 pH Units (7.32-7.45); ABG PO2 65 mmHg (85-104); ABG TCO2 37 mEq/L (20-26)
--- NOTE | 2017-04-17 15:11 | Cardiology Consult Note ---
Date of Encounter: 04/17/17 Time of Encounter: 14:30 Assessment and Plan (1) Acute and chronic respiratory failure Current Visit: Yes Status: Acute Per cardiology: -Admitted with acute on chronic respiratory failure, required Bipap. -Currently on Nasal cannula. -reports breathing much better today. -Management per primary and pulmonary services Qualifiers: Respiratory failure complication: hypoxia and hypercapnia Qualified Code(s) : J96.21 - Acute and chronic respiratory failure with hypoxia; J96.22 - Acute and chronic respiratory failure with hypercapnia; J96.22 - Acute and chronic respiratory failure with hypercapnia; J96.22 - Acute and chronic respiratory failure with hypercapnia (2) Elevated troponin Current Visit: Yes Status: Acute Per cardiology: -Troponins 0.165 at [facility], 0.26 ARM in the setting of acute respiratory failure -Denies current chest pain. -ECG with no acute ischemic changes. -On asa, statin, beta blcoker. -Of note, did report atypical chest pain yesterday that occured with deep inspiration. -TTE 05/2016 with LVEF 65%, no segmental wall motion abnormalities. -Do not suspect NSTEMI, suspect demand ischemia related to above -Will repeat limited TTE. -Trend troponins. -Will start therapeutic lovenox. -Will continue to monitor. (3) Atrial tachycardia Current Visit: Yes Status: Acute Per cardiology: -Telemetry reviewed with intermittent periods of atrial tachycardia. -Telemetry strips reviewed with and thought to be possibly MAT. -Will obtain repeat ECG. -Will continue to monitor. (4) Elevated brain natriuretic peptide (BNP) level Current Visit: Yes Status: Acute Per cardiology: -Labs reviewed from [facility] with NTpBNP noted to be 8854. -Euvolemic on exam. -Denies weight gain or edema at home. -TTE pending. Discussion w patient/family: The assessment and plan as outlined above was discussed with the patient who expressed understanding and agreement. All questions were answered. Thank you for involving us in the care of your patient. Please call with any questions. Discussed and reviewed with . History of Present Illness Consult date: 04/17/17 Requesting physician: Rylan Linton Consult reason: elevated troponin Chief complaint: shortness of breath History of present illness: Ms. Mcdonough is a 56 year old female with a relevant past medical history of HTN, hyperlipidemia, COPD,former smoking. Patient presented to [facility] with complaints of increased shortness of breath. Patient was transferred to [facility]. Cardiology has been asked to see and evaluate patient due to elevated troponins. Patient denies current chest pain. Patient admits to chest pain yesterday that occured with deep inspiration. Denies exertional symptoms. Patient reports breathing is better today. Patient denies palpitations or fluttering. Denies weight gain or edema. Past Med Surg Social Fam HX - Past Medical History Attestation: Yes The following information was validated with the patient. Source: patient, old records reviewed Medical history: COPD, hyperlipidemia, hypertension Psychiatric history: depression - Past Surgical History Surgical History: non-contributory - Social History Smoking Status: Former smoker Smokeless Tobacco Status: No Alcohol use: none Drug use: none Medications and Allergies ALPRAZolam [Xanax 1 MG Tablet] 1 mg PO TID 06/05/16 [History] Aripiprazole [Abilify] 5 mg PO DAILY 06/05/16 [History] Atorvastatin [Lipitor] 40 mg PO HS 06/05/16 [History] Lisinopril/Hydrochlorothiazide [Zestoretic 20-12.5 mg Tablet] 1 each PO DAILY [History] Metoprolol [Lopressor] 25 mg PO BID 06/05/16 [History] Paroxetine [Paxil] 30 mg PO DAILY 06/05/16 [History] cloNIDine HCl [CloNIDine HCl] 0.1 mg PO DAILY PRN 06/05/16 [History] Budesonide/Formoterol 160/4.5 [Symbicort 160/4.5] 2 puff IH BIDR 04/17/17 [ History] Ipratropium/Albuterol Neb [Duoneb] 3 ml IH Q6HR PRN 04/17/17 [History] Meloxicam [Mobic] 15 mg PO DAILY 04/17/17 [History] Oxybutynin Chloride [Ditropan Xl] 5 mg PO DAILY 04/17/17 [History] 3 Allergy/AdvReac Type Severity Reaction Status Date / Time No Known Allergies Allergy Verified 12/28/16 14:38 All Systems Review: A 10-system review of systems was performed and is negative for pertinent findings except as documented above in the HPI. - Cardiovascular Cardiovascular: as per HPI, dyspnea at rest, dyspnea on exertion Physical Examination Vital Signs, Last 4 Hours Temp Pulse Resp BP Pulse Ox 04/17/17 12:00 98 F 85 18 124/91 93 04/17/17 11:24 18 95 General: Conversant, No Apparent Distress HEENT: Atraumatic, Normocephaly, Mucus Membranes Moist Neck: No JVD, Normal carotid pulses Cardiac: Reg Rate and Rhythm, Normal S1 and S2, No Murmur Lungs: Other (Lung sounds coarse throughout. ) Neuro: Alert and responsive, No focal deficits noted Abdomen: Soft, Non-Tender Skin: No rashes noted on visualized skin Musculoskeletal: No Chest Wall Tenderness Extremities: No Clubbing, No Cyanosis, No Edema, Normal Pulses Results Lab Results Active Medications Acetaminophen (Tylenol) 650 mg PO Q6HR PRN PRN Reason: Mild Pain/Fever Stop: 10/17/17 08:17 Hydrocodone Bitart/Acetaminophen ([place] 5-325 Mg) 1 tab PO Q6H PRN PRN Reason: Pain Stop: 10/17/17 08:20 Albuterol/Ipratropium (Duoneb) 3 ml IH [id number] OLIVE Stop: 10/17/17 12:01 Last Admin: 04/17/17 11:24 Dose: 3 ml Albuterol/Ipratropium (Duoneb) 3 ml IH [id number] PRN PRN Reason: Shortness Of Breath/Wheezing Stop: 10/17/17 08:22 Alprazolam (Xanax) 1 mg PO TID OLIVE PRN Reason: Protocol Stop: 10/17/17 09:01 Last Admin: 04/17/17 12:09 Dose: 1 mg Aripiprazole (Abilify) 5 mg PO DAILY [facility] Stop: 10/17/17 09:01 Last Admin: 04/17/17 12:06 Dose: 5 mg Aspirin (Aspirin) 81 mg PO DAILY [facility] Stop: 10/17/17 09:01 Last Admin: 04/17/17 12:08 Dose: 81 mg Atorvastatin Calcium (Lipitor) 40 mg PO HS [facility] Stop: 10/17/17 21:01 Enoxaparin Sodium (Lovenox) 40 mg SQ 0600 OLIVE PRN Reason: Protocol Stop: 10/18/17 06:01 Lisinopril/HCTZ (Prinzide 20-12.5) 1 each PO DAILY [facility] Stop: 10/17/17 09:01 Last Admin: 04/17/17 12:07 Dose: 1 each Sodium Chloride (0.9 % Sodium Chloride) 1,000 mls @ 75 mls/hr IVC .[id number] [facility] Stop: 04/18/17 11:09 Last Admin: 04/17/17 12:06 Dose: 75 mls/hr Isosorbide Mononitrate (Imdur) 30 mg PO DAILY [facility] Stop: 10/17/17 09:01 Last Admin: 04/17/17 12:06 Dose: 30 mg Methylprednisolone (Solu-Medrol) 60 mg IVP Q8HR [facility] Stop: 10/17/17 16:01 Metoprolol Tartrate (Lopressor) 25 mg PO BID [facility] Stop: 10/17/17 09:01 Last Admin: 04/17/17 12:08 Dose: 25 mg Naloxone HCl (Narcan) 0.4 mg IVP Q2MIN PRN PRN Reason: SEE COMMENTS Stop: 10/17/17 08:17 Paroxetine HCl (Paxil) 30 mg PO DAILY [facility] PRN Reason: Protocol Stop: 10/17/17 09:01 Last Admin: 04/17/17 12:13 Dose: 30 mg Pharmacy Profile Note (Patient Taking Own Medication) 1 each IH DAILY [facility] Stop: 10/17/17 09:01 Last Admin: 04/17/17 12:08 Dose: Not Given Tramadol HCl (Ultram) 50 mg PO Q6HR PRN PRN Reason: Moderate Pain Stop: 10/17/17 08:17 Laboratory Tests 04/17/17 08:50 Troponin I 0.26 H* - Imaging and Cardiology Chest Xray: report reviewed Echo: pending, report reviewed - EKG Interpretation EKG results cardiology: personally reviewed (ECG with SR, HR 69.), other ( Telemetry reviewed with average HR previous 12 hours noted to be 83, SR. PACs noted. Intermittent atrial tachycardia noted, possible MAT.) Consult Discharge Plan - Plan Referrals: Javier Reyes MD [Primary Care Provider] -
[2017-04-17] MEDS: methylPREDNISolone 125 MG/2 ML VIAL IVP SCH (17:58)
[2017-04-17] MEDS: *HR* Enoxaparin 80 MG/0.8 ML SYRINGE SQ SCH (17:58)
[2017-04-18] MEDS: 0.9 % Sodium Chloride 1,000 ML IVC SCH (00:29)
[2017-04-18] MEDS: methylPREDNISolone 125 MG/2 ML VIAL IVP SCH ×3 (00:30→16:37)
[2017-04-18] MEDS: Ipratropium/Albuterol Neb 3 ML IH SCH ×5 (04:20→20:17)
[2017-04-18] MEDS ORDERED: Ipratropium/Albuterol Neb 3 ML IH ONE (05:23)
[2017-04-18] MEDS ORDERED: *HR* Enoxaparin 40 MG/0.4 ML SYRINGE SQ SCH (06:00)
[2017-04-18] MEDS: *HR* Enoxaparin 80 MG/0.8 ML SYRINGE SQ SCH ×2 (06:03→16:36)
[2017-04-18 07:14] LABS: Hematocrit 35.2 % (35.3-44.9); Hemoglobin 11.4 g/dL (11.5-15.4); Mean Corpuscular HGB Conc 32.4 g/dL (31.6-35.5); Mean Corpuscular Hemoglobin 28.6 pg (28.0-33.3); Mean Corpuscular Volume 88.2 fL (83.0-100.0); Mean Platelet Volume 10.3 fL (9.4-12.4); Platelet Count 247 K/mcL (140-400); Red Blood Count 3.99 M/mcL (3.82-4.97); Red Cell Distribution Width 13.3 % (11.5-14.5)
[2017-04-18 08:06] LABS: Alanine Aminotransferase 7 Units/L (7-52); Albumin 3.5 g/dL (3.5-5.7); Albumin/Globulin Ratio 1.5 (1.1-2.2); Alkaline Phosphatase 82 Units/L (34-104); Aspartate Amino Transferase 11 Units/L (13-39); BUN/Creatinine Ratio 24 (6-26); Bilirubin,Total 0.4 mg/dL (0.3-1.0); Blood Urea Nitrogen 19 mg/dL (6-20); Carbon Dioxide 35 mEq/L (23-29); Chloride 98 mEq/L (98-107); Chol/HDL Ratio 3.4 (0-4.9); Cholesterol 174 mg/dL (< 200); Globulin 2.4 g/dL (2.4-3.5); Glucose 138 mg/dL (70-105); HDL Cholesterol 51 mg/dL (40-59); LDL Cholesterol,Calculated 106 mg/dL (0-99); Magnesium 1.8 mg/dL (1.6-2.6); Osmolality,Calculated 286 (280-300); Sodium 136 mEq/L (136-145); Total Protein 5.9 g/dL (6.4-8.9); Triglycerides 84 mg/dL (< 150); eGFR For African Americans > 60 (> 60); eGFR For Non-African Americans > 60 (> 60)
--- NOTE | 2017-04-18 10:03 | Pulmonology Progress Note ---
Date of Encounter: 04/18/17 Time of Encounter: 10:03 Assessment and Plan (1) Acute and chronic respiratory failure Current Visit: Yes Status: Acute Continue supplemental oxygen to keep oxygen saturation greater than 80% around 92% Qualifiers: Respiratory failure complication: hypoxia and hypercapnia Qualified Code(s) : J96.21 - Acute and chronic respiratory failure with hypoxia; J96.22 - Acute and chronic respiratory failure with hypercapnia; J96.22 - Acute and chronic respiratory failure with hypercapnia; J96.22 - Acute and chronic respiratory failure with hypercapnia (2) Acute exacerbation of chronic obstructive airways disease Current Visit: No Status: Acute Would continue IV steroids today with transitioned to prednisone tomorrow 40 mg to complete a two-week taper Continue bronchodilators scheduled every 4-6 hours which will need to be continued on outpatient basis it appears that she is not as compliant with nebulized breathing treatments that she should be Continue Symbicort 160/4.52 puffs twice a day this is her home inhaler and she should continue that at the time of discharge in addition to nebulizers Tobacco cessation strongly encouraged Consideration of outpatient pulmonary rehabilitation and will need pulmonary follow-up within 2-4 weeks of the time of discharge (3) Elevated brain natriuretic peptide (BNP) level Current Visit: Yes Status: Acute Echocardiogram without evidence of systolic dysfunction I suspect diastolic dysfunction given elevated BNP patient continues on infusion of crystalloid which I suspect is detrimental and would recommend stopping and would actually recommend consideration of diuretic (4) Elevated troponin Current Visit: Yes Status: Acute Seen by cardiology no plan for noninvasive ischemic evaluation (5) DVT prophylaxis Current Visit: No Status: Acute Per routine inpatient care (6) Tobacco abuse counseling Current Visit: Yes Status: Acute Strongly encouraged patient to stop smoking Subjective Principal diagnosis: AECOPD Interval history: Mr. Gómez is done well overnight was able to be taken off BiPAP without issue remain short of breath still complaining of chest congestion Objective PUL Vital signs: Last Vital Signs Temp 98.1 F 04/18/17 07:00 Pulse 82 04/18/17 07:00 Resp 18 04/18/17 07:32 BP 150/76 04/18/17 07:00 Pulse Ox 96 04/18/17 07:32 General appearance: no acute distress Auscultation: bilateral: wheezes, rhonchi Cardiovascular: regular rate and rhythm Gastrointestinal: normoactive bowel sounds Extremities: no edema normal mental status, non-focal exam Results - Laboratory Findings CBC and BMP: 04/18/17 06:59 04/18/17 06:59 ABG ABG pH 7.44 pH Units (7.32-7.45) 04/17/17 13:34 ABG pCO2 53 mmHg (35-45) H 04/17/17 13:34 ABG pO2 65 mmHg (85-104) L 04/17/17 13:34 ABG O2 Saturation 93 % (95-98) L 04/17/17 13:34 Abnormal lab findings: Abnormal lab results Hgb 11.4 g/dL (11.5-15.4) L 04/18/17 06:59 Hct 35.2 % (35.3-44.9) L 04/18/17 06:59 ABG pCO2 53 mmHg (35-45) H 04/17/17 13:34 ABG pO2 65 mmHg (85-104) L 04/17/17 13:34 ABG HCO3 36 mEq/L (21-27) H 04/17/17 13:34 ABG Total CO2 37 mEq/L (20-26) H 04/17/17 13:34 ABG O2 Saturation 93 % (95-98) L 04/17/17 13:34 ABG Base Excess 10 mEq/L (-2 to 3) H 04/17/17 13:34 Carbon Dioxide 35 mEq/L (23-29) H 04/18/17 06:59 Glucose 138 mg/dL (70-105) H 04/18/17 06:59 AST 11 Units/L (13-39) L 04/18/17 06:59 Troponin I 0.10 ng/mL (< 0.04) H* 04/17/17 22:35 Serum Total Protein 5.9 g/dL (6.4-8.9) L 04/18/17 06:59 LDL Cholesterol, Calc 106 mg/dL (0-99) H 04/18/17 06:59 - Diagnostic Findings Additional studies: Echocardiogram - Clinical Findings Intake & Output: Intake & Output 04/17/17 04/18/17 04/18/17 23:59 07:59 15:59 Intake Total 500 / 500 1450 / 1450 240 / 240 Output Total 0 / 0 400 / 400 Balance 500 / 500 1050 / 1050 240 / 240 Weight 72.2 kg Consult Discharge Plan - Plan Referrals: Javier Reyes MD [Primary Care Provider] -
[2017-04-18] MEDS: Lisinopril-HCTZ 20-12.5mg TABLET PO SCH (10:08)
[2017-04-18] MEDS: Isosorbide MONOnitrate (24 HR) 30 MG TAB.ER.24H PO SCH (10:08)
[2017-04-18] MEDS: Aspirin 81 MG TAB.CHEW PO SCH (10:08)
[2017-04-18] MEDS: ARIPiprazole 5 MG TABLET PO SCH (10:08)
[2017-04-18] MEDS: ALPRAZolam 1 MG TABLET PO SCH ×3 (10:09→20:41)
[2017-04-18] MEDS: (Fluticasone/Vilanterol [Breo Ellipta 100-25 Mcg Inh]) IH SCH (10:14)
--- NOTE | 2017-04-18 11:22 | Internal Med Progress Note ---
<Rush Randle Saroj - Last Filed: 04/18/17 15:48> Date of Encounter: 04/18/17 Time of Encounter: 11:22 - Assessment and plan (1) Acute and chronic respiratory failure Current Visit: Yes Status: Acute Assessment and plan: Mrs. Mcdonough 48-year-old female with known COPD oxygen dependent at 2 L presented with acute on chronic respiratory failure found to be in COPD exacerbation seen by pulmonology. CXR with no acute cardiopulmonary disease. - Maintain oxygen saturations between 88 and 92% - Continue IV steroids at this time, plans to decrease to by mouth prednisone prior to discharge - Continue scheduled breathing treatments - Encouraged patient to sit up in the chair and use bedside spirometer - Patient should consider outpatient pulmonary rehabilitation and follow-up with pulmonology in 2-4 weeks after discharge. Qualifiers: Respiratory failure complication: hypoxia and hypercapnia Qualified Code(s) : J96.21 - Acute and chronic respiratory failure with hypoxia; J96.22 - Acute and chronic respiratory failure with hypercapnia; J96.22 - Acute and chronic respiratory failure with hypercapnia; J96.22 - Acute and chronic respiratory failure with hypercapnia (2) Acute exacerbation of chronic obstructive airways disease Current Visit: No Status: Acute Assessment and plan: Discussed above. (3) Tobacco abuse Current Visit: Yes Status: Acute Assessment and plan: Patient continues to smoke, discussed the importants of smoking cessation. - Offered nicotine patch which she has declined. (4) Elevated troponin Current Visit: Yes Status: Acute Assessment and plan: Elevated troponin 0.26, 0.15, 0.10, trending down. Patient asymptomatic, seen by cardiology with no indications for invasive evaluations at this time. - TTE without changes. - Subjective Interval history: Ms. Mcdonough has been seen and evaluated at bedside. She is alert awake interactive in no acute distress. She feels that her breathing is not back to baseline yet. She still feels wheezy and says she wears 2 L of nasal cannula oxygen at home. She continues to smoke but does say she uses her inhalers regularly at home. She has no further complaints concerns or pains. All questions answered. - Constitutional Vitals: Temp Pulse Resp BP Pulse Ox 98.1 F 82 18 150/76 96 04/18/17 07:00 04/18/17 07:00 04/18/17 07:32 04/18/17 07:00 04/18/17 07:32 General appearance: Present: mild distress - Head Head exam: Present: atraumatic, normocephalic - Eye Eye exam: Present: PERRL, conjuntiva pink, sclera anicteric Pupils: Present: PERRL - Neck Neck exam general surgery: Present: supple, trachea midline. Absent: lymphadenopathy - Respiratory Respiratory exam: Present: decreased breath sounds, wheezes. Absent: accessory muscle use, rales, rhonchi - Cardiovascular Cardiovascular exam: Present: RRR, +S1, +S2. Absent: diastolic murmur, gallop, rubs, systolic murmur - GI/Abdominal GI/Abdominal exam: Present: normal bowel sounds, soft, no peritoneal signs. Absent: distended, tenderness - Extremities Exam Extremities exam: Present: warm, radial pulses palpable and symmetrical. Absent : calf tenderness, cyanotic, pedal edema - Neurological Exam Neurological exam: Present: CN II-XII intact, oriented X3, no focal deficits. Absent: pronater drift, facial droop, speech deficit - Skin Skin exam: Present: dry, intact Internal Medicine: Result - Labs CBC & Chem 7: 04/18/17 06:59 04/18/17 06:59 Labs: Short CBC 04/18/17 Range/Units 06:59 WBC 9.6 (4.3-11.1) K/mcL Hgb 11.4 L (11.5-15.4) g/dL Hct 35.2 L (35.3-44.9) % Plt Count 247 (140-400) K/mcL BMP 04/18/17 06:59 Sodium 136 Potassium 4.0 Chloride 98 Carbon Dioxide 35 H BUN 19 Creatinine 0.79 Glucose 138 H Calcium 9.0 Cardiac Enzymes 04/17/17 04/17/17 Range/Units 14:49 22:35 Troponin I 0.15 H* 0.10 H* (< 0.04) ng/mL Liver Function 04/18/17 Range/Units 06:59 Total Bilirubin 0.4 (0.3-1.0) mg/dL AST 11 L (13-39) Units/L ALT 7 (7-52) Units/L Alkaline Phosphatase 82 (34-104) Units/L Albumin 3.5 (3.5-5.7) g/dL - ABG Interpretation ABG results: ABG ABG pH 7.44 pH Units (7.32-7.45) 04/17/17 13:34 ABG pCO2 53 mmHg (35-45) H 04/17/17 13:34 ABG pO2 65 mmHg (85-104) L 04/17/17 13:34 ABG O2 Saturation 93 % (95-98) L 04/17/17 13:34 - Impressions Impressions Echocardiogram Limited Views 04/17/17 13:23 Impressions: LVEF 55-60%. No segmental dysfunction. Left Ventricular Wall Motion: Rest Echo Findings All wall segments showed normal motion. Findings: ECG Findings * Normal sinus rhythm. Study Quality * Technically adequate exam. Left Ventricle * LVEF 55-60%. * No segmental dysfunction. * Normal LV chamber size, wall thickness and function. Interatrial Septum * Lipomatous interatrial septum. Right Ventricle * Normal right ventricular structure and function. Mitral Valve * Normal mitral valve structure. Chest X-Ray 04/18/17 05:04 IMPRESSION: No acute cardiopulmonary disease. D/ / 04/18/2017 07:40:45 Jani Monk MD / [employer]il[employer] Interpreting Provider: Jani Monk MD Consult Discharge Plan - Plan Referrals: Javier Reyes MD [Primary Care Provider] - <Dieudonne Vázquez - Last Filed: 04/18/17 16:55> Date of Encounter: 04/18/17 - Assessment and plan (1) Acute and chronic respiratory failure Current Visit: Yes Status: Acute Qualifiers: Respiratory failure complication: hypoxia and hypercapnia Qualified Code(s) : J96.21 - Acute and chronic respiratory failure with hypoxia; J96.22 - Acute and chronic respiratory failure with hypercapnia; J96.22 - Acute and chronic respiratory failure with hypercapnia; J96.22 - Acute and chronic respiratory failure with hypercapnia (2) Acute exacerbation of chronic obstructive airways disease Current Visit: No Status: Acute (3) Tobacco abuse Current Visit: Yes Status: Acute (4) Depression, major, recurrent, in remission Current Visit: No Status: Chronic - Constitutional Vitals: Temp Pulse Resp BP Pulse Ox 97.9 F 74 17 150/76 93 04/18/17 15:00 04/18/17 15:00 04/18/17 15:20 04/18/17 15:20 04/18/17 16:42 Internal Medicine: Result - Labs CBC & Chem 7: 04/18/17 06:59 04/18/17 06:59 Labs: Short CBC 04/18/17 Range/Units 06:59 WBC 9.6 (4.3-11.1) K/mcL Hgb 11.4 L (11.5-15.4) g/dL Hct 35.2 L (35.3-44.9) % Plt Count 247 (140-400) K/mcL BMP 04/18/17 06:59 Sodium 136 Potassium 4.0 Chloride 98 Carbon Dioxide 35 H BUN 19 Creatinine 0.79 Glucose 138 H Calcium 9.0 Cardiac Enzymes 04/17/17 Range/Units 22:35 Troponin I 0.10 H* (< 0.04) ng/mL Liver Function 04/18/17 Range/Units 06:59 Total Bilirubin 0.4 (0.3-1.0) mg/dL AST 11 L (13-39) Units/L ALT 7 (7-52) Units/L Alkaline Phosphatase 82 (34-104) Units/L Albumin 3.5 (3.5-5.7) g/dL - ABG Interpretation ABG results: ABG ABG pH 7.44 pH Units (7.32-7.45) 04/17/17 13:34 ABG pCO2 53 mmHg (35-45) H 04/17/17 13:34 ABG pO2 65 mmHg (85-104) L 04/17/17 13:34 ABG O2 Saturation 93 % (95-98) L 04/17/17 13:34 - Impressions Impressions Echocardiogram Limited Views 04/17/17 13:23 Impressions: LVEF 55-60%. No segmental dysfunction. Left Ventricular Wall Motion: Rest Echo Findings All wall segments showed normal motion. Findings: ECG Findings * Normal sinus rhythm. Study Quality * Technically adequate exam. Left Ventricle * LVEF 55-60%. * No segmental dysfunction. * Normal LV chamber size, wall thickness and function. Interatrial Septum * Lipomatous interatrial septum. Right Ventricle * Normal right ventricular structure and function. Mitral Valve * Normal mitral valve structure. Chest X-Ray 04/18/17 05:04 IMPRESSION: No acute cardiopulmonary disease. D/ / 04/18/2017 07:40:45 Jani Monk MD / reva Interpreting Provider: Jani Monk MD - Attending Attestation I examined this patient and my medical decision-making was reviewed with the Resident Physician on 04/18/17. I agree with the documented findings, disposition and treatment plan as described except to the extent set forth below. Ms Mcdonough is currently admitted for acute exac COPD and respiratory failure. She remains moderate to high risk due to potential for worsening respiratory status. Ms Mcdonough is still having some breathing difficulty. No fever or chills. No CP at this time. Continues to smoke. No other new issues. Exam Alert Comfortable Mucus membranes dry Heart reg Wheeze throughout I/P 1. Resp failure 2. COPD exac Further diagnoses and plan as above.
--- NOTE | 2017-04-18 13:58 | Cardiology Progress Note ---
Date of Encounter: 04/18/17 Time of Encounter: 13:56 Assessment and Plan (1) Elevated troponin Current Visit: Yes Status: Acute Per cardiology: -Troponins 0.165, 0.26, 0.15, 0.10. -Denies current chest pain. -ECG with no acute ischemic changes. -On asa, statin, beta blcoker. -Of note, did report atypical chest pain yesterday that occured with deep inspiration. -TTE 05/2016 with LVEF 65%, no segmental wall motion abnormalities. -Do not suspect NSTEMI, suspect demand ischemia related to COPD and atrial tachycardia. - TTE shows preserved EF. No WMA. Reviewed with patient. No further cardiac testing recommended. Cardiology will sign off. Call with questions. (2) Atrial tachycardia Current Visit: Yes Status: Acute Per cardiology: -Telemetry reviewed with intermittent periods of atrial tachycardia. -Telemetry strips reviewed with and thought to be possibly MAT. EKG shows SR. - telemetry review today shows NSR. No recurrent tachycardia seen. Discussion w patient/family: The assessment and plan as outlined above was discussed with the patient and/or family members who expressed understanding and agreement. All questions were answered. Thank you for involving us in the care of your patient. Please call with any questions. Subjective Principal diagnosis: AECOPD Interval history: Ms. Mcdonough continues to have significant SOB and wheezing at rest. She reports no improvement in her COPD. Objective Vital Signs, Last 4 Hours Resp Pulse Ox 04/18/17 11:44 17 97 General: Conversant, No Apparent Distress HEENT: Atraumatic, Normocephaly, Mucus Membranes Moist Neck: No JVD, Normal carotid pulses Cardiac: Reg Rate and Rhythm, Normal S1 and S2, No Murmur Lungs: Other (Respirations labored. Expiratory wheezes throughout. ) Neuro: Alert and responsive, No focal deficits noted Abdomen: Soft, Non-Tender Skin: No rashes noted on visualized skin Musculoskeletal: No Chest Wall Tenderness Extremities: No Clubbing, No Cyanosis, No Edema, Normal Pulses Results 04/18/17 06:59 04/18/17 06:59 Lab Results 04/17/17 04/17/17 04/18/17 14:49 22:35 06:59 WBC 9.6 Hgb 11.4 L Hct 35.2 L Plt Count 247 Sodium Potassium Chloride Carbon Dioxide BUN Creatinine Glucose Calcium Magnesium Total Bilirubin AST ALT Alkaline Phosphatase Troponin I 0.15 H* 0.10 H* 04/18/17 06:59 WBC Hgb Hct Plt Count Sodium 136 Potassium 4.0 Chloride 98 Carbon Dioxide 35 H BUN 19 Creatinine 0.79 Glucose 138 H Calcium 9.0 Magnesium 1.8 Total Bilirubin 0.4 AST 11 L ALT 7 Alkaline Phosphatase 82 Troponin I - Imaging and Cardiology Echo: report reviewed - EKG Interpretation EKG results cardiology: personally reviewed Consult Discharge Plan - Plan Referrals: Javier Reyes MD [Primary Care Provider] -
[2017-04-18] MEDS: *HR* HYDROcodone/Acet 5/325 mg TABLET PO PRN (20:41)
[2017-04-19] MEDS: methylPREDNISolone 125 MG/2 ML VIAL IVP SCH ×3 (00:03→17:08)
[2017-04-19] MEDS: Ipratropium/Albuterol Neb 3 ML IH SCH ×6 (00:06→20:34)
[2017-04-19] MEDS: *HR* Enoxaparin 80 MG/0.8 ML SYRINGE SQ SCH (05:51)
[2017-04-19] MEDS: Aspirin 81 MG TAB.CHEW PO SCH (07:33)
[2017-04-19] MEDS: ALPRAZolam 1 MG TABLET PO SCH ×3 (07:33→21:52)
[2017-04-19] MEDS: Lisinopril-HCTZ 20-12.5mg TABLET PO SCH (07:33)
[2017-04-19] MEDS: ARIPiprazole 5 MG TABLET PO SCH (07:33)
[2017-04-19] MEDS: Isosorbide MONOnitrate (24 HR) 30 MG TAB.ER.24H PO SCH (07:34)
[2017-04-19] MEDS: *HR* HYDROcodone/Acet 5/325 mg TABLET PO PRN ×3 (07:34→21:56)
[2017-04-19 08:30] LABS: Basophils % 0.1 %; Hematocrit 38.9 % (35.3-44.9); Immature Granulocytes % 0.7 % (0-4); Lymphocytes # 0.5 K/mcL (0.6-4.6); Lymphocytes % 3.2 %; Mean Corpuscular HGB Conc 30.8 g/dL (31.6-35.5); Mean Corpuscular Hemoglobin 28.3 pg (28.0-33.3); Mean Corpuscular Volume 91.7 fL (83.0-100.0); Mean Platelet Volume 10.4 fL (9.4-12.4); Monocytes # 0.2 K/mcL (0.0-1.3); Monocytes % 1.2 %; Platelet Count 281 K/mcL (140-400); Red Blood Count 4.24 M/mcL (3.82-4.97); Red Cell Distribution Width 13.7 % (11.5-14.5); Segmented Neutrophils % 94.8 %
[2017-04-19 08:45] LABS: Neutrophils # 14.2 K/mcL (1.6-8.9)
[2017-04-19 08:57] LABS: Alanine Aminotransferase 8 Units/L (7-52); Albumin 3.9 g/dL (3.5-5.7); Albumin/Globulin Ratio 1.6 (1.1-2.2); Alkaline Phosphatase 81 Units/L (34-104); Aspartate Amino Transferase 10 Units/L (13-39); BUN/Creatinine Ratio 26 (6-26); Bilirubin,Total 0.4 mg/dL (0.3-1.0); Blood Urea Nitrogen 19 mg/dL (6-20); Calcium 9.1 mg/dL (8.6-10.3); Carbon Dioxide 39 mEq/L (23-29); Chloride 97 mEq/L (98-107); Globulin 2.5 g/dL (2.4-3.5); Glucose 138 mg/dL (70-105); Osmolality,Calculated 292 (280-300); Potassium 3.7 mEq/L (3.5-5.1); Sodium 139 mEq/L (136-145); Total Protein 6.4 g/dL (6.4-8.9); eGFR For African Americans > 60 (> 60); eGFR For Non-African Americans > 60 (> 60)
--- NOTE | 2017-04-19 11:44 | Internal Med Progress Note ---
<Rush Randle Saroj - Last Filed: 04/19/17 11:30> Date of Encounter: 04/19/17 Time of Encounter: 11:30 - Assessment and plan (1) Acute and chronic respiratory failure Current Visit: Yes Status: Acute Assessment and plan: Mrs. Mcdonough 48-year-old female with known COPD oxygen dependent at 2 L presented with acute on chronic respiratory failure found to be in COPD exacerbation seen by pulmonology. CXR with no acute cardiopulmonary disease. - Maintain oxygen saturations between 88 and 92% - Continue IV steroids at this time (required increase to 80mg Q8hrs), plans to decrease to by mouth prednisone prior to discharge - Azithromycin 500mg PO q24hr. - Continue scheduled breathing treatments - Encouraged patient to sit up in the chair and use bedside spirometer - Patient should consider outpatient pulmonary rehabilitation and follow-up with pulmonology in 2-4 weeks after discharge. Qualifiers: Respiratory failure complication: hypoxia and hypercapnia Qualified Code(s) : J96.21 - Acute and chronic respiratory failure with hypoxia; J96.22 - Acute and chronic respiratory failure with hypercapnia; J96.22 - Acute and chronic respiratory failure with hypercapnia; J96.22 - Acute and chronic respiratory failure with hypercapnia (2) Acute exacerbation of chronic obstructive airways disease Current Visit: No Status: Acute Assessment and plan: Discussed above. (3) Tobacco abuse Current Visit: Yes Status: Acute Assessment and plan: Patient continues to smoke, discussed the importants of smoking cessation. - Offered nicotine patch which she has declined. (4) Elevated troponin Current Visit: Yes Status: Acute Assessment and plan: Elevated troponin 0.26, 0.15, 0.10, trending down. Patient asymptomatic, seen by cardiology with no indications for invasive evaluations at this time. - TTE without changes. (5) DVT prophylaxis Current Visit: No Status: Acute Assessment and plan: Sq heparin. - Subjective Interval history: Ms. Mcdonough has been seen and evaluated at bedside. She is alert awake interactive and says that her breathing is not much improved. She continues to feel wheezy, SOB and not her normal self. She denies AMS, difficulty eating, drinking or any other medical concerns at this time. - Constitutional Vitals: Temp Pulse Resp BP Pulse Ox 97.6 F 80 15 153/88 99 04/19/17 10:49 04/19/17 10:49 04/19/17 10:49 04/19/17 10:49 04/19/17 10:49 General appearance: Present: mild distress - Head Head exam: Present: atraumatic, normocephalic - Eye Eye exam: Present: PERRL, conjuntiva pink, sclera anicteric Pupils: Present: PERRL - Neck Neck exam general surgery: Present: supple, trachea midline. Absent: lymphadenopathy - Respiratory Respiratory exam: Present: decreased breath sounds, wheezes, tachypnea. Absent : rales, rhonchi - Cardiovascular Cardiovascular exam: Present: RRR, +S1, +S2. Absent: diastolic murmur, gallop, rubs, systolic murmur - GI/Abdominal GI/Abdominal exam: Present: normal bowel sounds, soft, no peritoneal signs. Absent: distended, tenderness - Extremities Exam Extremities exam: Present: warm, radial pulses palpable and symmetrical. Absent : calf tenderness, cyanotic, pedal edema - Neurological Exam Neurological exam: Present: CN II-XII intact, oriented X3, no focal deficits. Absent: pronater drift, facial droop, speech deficit - Skin Skin exam: Present: dry, intact Internal Medicine: Result - Labs CBC & Chem 7: 04/19/17 07:50 04/19/17 07:50 Labs: Short CBC 04/19/17 Range/Units 07:50 WBC 15.0 H D (4.3-11.1) K/mcL Hgb 12.0 (11.5-15.4) g/dL Hct 38.9 (35.3-44.9) % Plt Count 281 (140-400) K/mcL Neutrophils # 14.2 H (1.6-8.9) K/mcL BMP 04/19/17 07:50 Sodium 139 Potassium 3.7 Chloride 97 L Carbon Dioxide 39 H BUN 19 Creatinine 0.72 Glucose 138 H Calcium 9.1 Liver Function 04/19/17 Range/Units 07:50 Total Bilirubin 0.4 (0.3-1.0) mg/dL AST 10 L (13-39) Units/L ALT 8 (7-52) Units/L Alkaline Phosphatase 81 (34-104) Units/L Albumin 3.9 (3.5-5.7) g/dL - ABG Interpretation ABG results: ABG ABG pH 7.44 pH Units (7.32-7.45) 04/17/17 13:34 ABG pCO2 53 mmHg (35-45) H 04/17/17 13:34 ABG pO2 65 mmHg (85-104) L 04/17/17 13:34 ABG O2 Saturation 93 % (95-98) L 04/17/17 13:34 Consult Discharge Plan - Plan Referrals: Javier Reyes MD [Primary Care Provider] - <Dieudonne Vázquez - Last Filed: 04/19/17 17:55> Date of Encounter: 04/19/17 - Assessment and plan (1) Acute and chronic respiratory failure Current Visit: Yes Status: Acute Qualifiers: Respiratory failure complication: hypoxia and hypercapnia Qualified Code(s) : J96.21 - Acute and chronic respiratory failure with hypoxia; J96.22 - Acute and chronic respiratory failure with hypercapnia; J96.22 - Acute and chronic respiratory failure with hypercapnia; J96.22 - Acute and chronic respiratory failure with hypercapnia (2) Acute exacerbation of chronic obstructive airways disease Current Visit: No Status: Acute (3) Tobacco abuse Current Visit: Yes Status: Acute (4) Depression, major, recurrent, in remission Current Visit: No Status: Chronic - Constitutional Vitals: Temp Pulse Resp BP Pulse Ox 97.9 F 72 16 124/67 93 04/19/17 17:04 04/19/17 17:04 04/19/17 17:04 04/19/17 17:04 04/19/17 17:04 Internal Medicine: Result - Labs CBC & Chem 7: 04/19/17 07:50 04/19/17 07:50 Labs: Short CBC 04/19/17 Range/Units 07:50 WBC 15.0 H D (4.3-11.1) K/mcL Hgb 12.0 (11.5-15.4) g/dL Hct 38.9 (35.3-44.9) % Plt Count 281 (140-400) K/mcL Neutrophils # 14.2 H (1.6-8.9) K/mcL BMP 04/19/17 07:50 Sodium 139 Potassium 3.7 Chloride 97 L Carbon Dioxide 39 H BUN 19 Creatinine 0.72 Glucose 138 H Calcium 9.1 Liver Function 04/19/17 Range/Units 07:50 Total Bilirubin 0.4 (0.3-1.0) mg/dL AST 10 L (13-39) Units/L ALT 8 (7-52) Units/L Alkaline Phosphatase 81 (34-104) Units/L Albumin 3.9 (3.5-5.7) g/dL - ABG Interpretation ABG results: ABG ABG pH 7.44 pH Units (7.32-7.45) 04/17/17 13:34 ABG pCO2 53 mmHg (35-45) H 04/17/17 13:34 ABG pO2 65 mmHg (85-104) L 04/17/17 13:34 ABG O2 Saturation 93 % (95-98) L 04/17/17 13:34 - Attending Attestation I examined this patient and my medical decision-making was reviewed with the Resident Physician on 04/19/17. I agree with the documented findings, disposition and treatment plan as described except to the extent set forth below. Ms Mcdonough is currently admitted for acute exac COPD. She remains moderate to high risk due to potential for worsening clinical status. Ms Mcdonough is still having a lot of wheezing. Some resp distress persists. No fever. No GI issues. Exam alert Mod resp distress at rest Heart reg Lungs with diffuse end exp wheeze abd soft I/P 1. Resp failure 2. COPD Check RIP. Further diagnoses and plan as above.
[2017-04-19] MEDS: Azithromycin 250 MG TABLET PO SCH (12:06)
[2017-04-19] MEDS: *HR* Heparin 5,000 UNIT/ML VIAL SQ SCH ×2 (14:18→21:53)
[2017-04-19 19:04] LABS: Adenovirus Not Detected (Not Detect); Bordetella Pertussis Not Detected (Not Detect); Chlamydophila pneumoniae Not Detected (Not Detect); Coronavirus 229E Not Detected (Not Detect); Coronavirus HKU1 Not Detected (Not Detect); Coronavirus NL63 Not Detected (Not Detect); Coronavirus OC43 ***DETECTED*** (Not Detect); Human Metapneumovirus Not Detected (Not Detect); Human Rhinovirus/Enterovirus Not Detected (Not Detect); Influenza A Subtype 2009 H1 Not Detected (Not Detect); Influenza A Untypeable Not Detected (Not Detect); Influenza B Not Detected (Not Detect); Mycoplasma pneumoniae Not Detected (Not Detect); Parainfluenza Virus 1 Not Detected (Not Detect); Parainfluenza Virus 2 Not Detected (Not Detect); Parainfluenza Virus 3 Not Detected (Not Detect); Parainfluenza Virus 4 Not Detected (Not Detect); Respiratory Syncytial Virus Not Detected (Not Detect)
[2017-04-20] MEDS: Ipratropium/Albuterol Neb 3 ML IH SCH ×7 (00:17→23:54)
[2017-04-20] MEDS: methylPREDNISolone 125 MG/2 ML VIAL IVP SCH ×4 (00:36→23:39)
[2017-04-20] MEDS: *HR* Heparin 5,000 UNIT/ML VIAL SQ SCH ×3 (05:44→19:21)
[2017-04-20] MEDS: *HR* HYDROcodone/Acet 5/325 mg TABLET PO PRN (06:29)
[2017-04-20 06:47] LABS: Hematocrit 37.3 % (35.3-44.9); Hemoglobin 11.2 g/dL (11.5-15.4); Immature Granulocytes % 0.8 % (0-4); Lymphocytes # 0.4 K/mcL (0.6-4.6); Mean Corpuscular Hemoglobin 28.2 pg (28.0-33.3); Mean Platelet Volume 10.9 fL (9.4-12.4); Monocytes # 0.2 K/mcL (0.0-1.3); Monocytes % 1.8 %; Neutrophils # 8.9 K/mcL (1.6-8.9); Platelet Count 233 K/mcL (140-400); Red Blood Count 3.97 M/mcL (3.82-4.97); Red Cell Distribution Width 13.4 % (11.5-14.5); Segmented Neutrophils % 93.4 %
--- NOTE | 2017-04-20 07:26 | Electrocardiograph Report ---
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
[2017-04-20 07:27] LABS: Alanine Aminotransferase 6 Units/L (7-52); Albumin 3.6 g/dL (3.5-5.7); Albumin/Globulin Ratio 1.5 (1.1-2.2); Alkaline Phosphatase 70 Units/L (34-104); Aspartate Amino Transferase 7 Units/L (13-39); BUN/Creatinine Ratio 34 (6-26); Bilirubin,Total 0.4 mg/dL (0.3-1.0); Blood Urea Nitrogen 21 mg/dL (6-20); Calcium 9.5 mg/dL (8.6-10.3); Carbon Dioxide 42 mEq/L (23-29); Chloride 95 mEq/L (98-107); Globulin 2.4 g/dL (2.4-3.5); Glucose 113 mg/dL (70-105); Osmolality,Calculated 294 (280-300); Potassium 3.6 mEq/L (3.5-5.1); Sodium 140 mEq/L (136-145); eGFR For African Americans > 60 (> 60); eGFR For Non-African Americans > 60 (> 60)
[2017-04-20] MEDS: ARIPiprazole 5 MG TABLET PO SCH (09:43)
[2017-04-20] MEDS: Lisinopril-HCTZ 20-12.5mg TABLET PO SCH (09:43)
[2017-04-20] MEDS: ALPRAZolam 1 MG TABLET PO SCH ×3 (09:43→21:02)
[2017-04-20] MEDS: Azithromycin 250 MG TABLET PO SCH (09:43)
[2017-04-20] MEDS: Aspirin 81 MG TAB.CHEW PO SCH (09:43)
--- NOTE | 2017-04-20 10:08 | Internal Med Progress Note ---
<Iam Ingram - Last Filed: 04/20/17 15:43> Date of Encounter: 04/20/17 Time of Encounter: 09:50 - Assessment and plan (1) Acute exacerbation of chronic obstructive airways disease Current Visit: Yes Status: Acute Assessment and plan: The patient is afebrile and appears in no acute distress. The patient has known COPD and is oxygen dependent at 2 L at home. Patient presented with acute on chronic respiratory failure found to be in COPD exacerbation. Patient is currently on the nasal canula at 3L with saturation at 80-82%. PCR detected Coronavirus OC43 on 04/19/17. Negative for flu. - Increase oxygen as needed to maintain oxygen saturations between 88 and 92% - Continue IV steroids at this time but plan to decrease from 80 mg to 60 mg Q8hrs. Plan to decrease by mouth prednisone prior to discharge. - Azithromycin 500mg PO q24hr. - Continue scheduled breathing treatments - Encouraged patient to sit up in the chair and use bedside spirometer - Patient should consider outpatient pulmonary rehabilitation and follow-up with pulmonology in 2-4 weeks after discharge. - Continue to monitor the patient closely. (2) DVT prophylaxis Current Visit: Yes Status: Acute Assessment and plan: Patient is hemodynamically stable. Continue Sq heparin. (3) Acute and chronic respiratory failure Current Visit: Yes Status: Acute Assessment and plan: Acute on chronic respiratory failure found to be in COPD exacerbation. CXR on reads no acute cardiopulmonary disease. Plan discussed above. Qualifiers: Respiratory failure complication: hypoxia and hypercapnia Qualified Code(s) : J96.21 - Acute and chronic respiratory failure with hypoxia; J96.22 - Acute and chronic respiratory failure with hypercapnia; J96.22 - Acute and chronic respiratory failure with hypercapnia; J96.22 - Acute and chronic respiratory failure with hypercapnia (4) Elevated troponin Current Visit: Yes Status: Acute Assessment and plan: Elevated troponin 0.26, 0.15, 0.10, trending down. Patient asymptomatic and was seen by cardiology with no indications for invasive evaluations at this time. (5) Tobacco abuse Current Visit: Yes Status: Acute - Time Spent With Patient 25 - 35 minutes - Subjective Interval history: Ms. Mcdonough was seen and evaluated at bedside. Mr. Laguerre, her roommate, is at bedside. She is alert and awake and states that she "had a rough night" because the BiPAP was comfortable. However, she admits that the BiPAP improved her breathing last night. She admits she feels wheezy, but she denies any SOB or difficulty breathing. She denies any headache, fever, chest pain, abdominal pain, and any weaknesses. She states that she has alot of stress going on and would like to return home. - Constitutional Vitals: Temp Pulse Resp BP Pulse Ox 98.1 F 69 14 166/95 94 04/20/17 07:41 04/20/17 07:41 04/20/17 08:10 04/20/17 07:41 04/20/17 08:10 General appearance: Present: cooperative, A&O X 3, no acute distress - Eye Eye exam: Present: EOMI, normal appearance, PERRL - Neck Neck exam general surgery: Present: full ROM, normal inspection. Absent: lymphadenopathy, tenderness - Respiratory Respiratory exam: Present: decreased breath sounds, wheezes. Absent: chest wall tenderness, respiratory distress, rhonchi, stridor - Expanded Respiratory Exam Location: decreased breath sounds: Left, Right, Upper, Lower, wheezes: Left, Right, Upper, Lower - Cardiovascular Cardiovascular exam: Present: RRR, +S1, +S2. Absent: diastolic murmur, gallop, rubs - GI/Abdominal GI/Abdominal exam: Present: soft. Absent: distended, firm, guarding, tenderness - Extremities Exam Extremities exam: Present: radial pulses palpable and symmetrical. Absent: calf tenderness, pedal edema, tenderness - Neurological Exam Neurological exam: Present: alert, CN II-XII intact, oriented X3, no focal deficits. Absent: altered, pronater drift, facial droop, speech deficit - Skin Skin exam: Present: dry, intact, warm. Absent: petechiae, rash Internal Medicine: Result - Labs CBC & Chem 7: 04/20/17 05:09 04/20/17 05:09 Labs: Short CBC 04/20/17 Range/Units 05:09 WBC 9.6 (4.3-11.1) K/mcL Hgb 11.2 L (11.5-15.4) g/dL Hct 37.3 (35.3-44.9) % Plt Count 233 (140-400) K/mcL Neutrophils # 8.9 (1.6-8.9) K/mcL BMP 04/20/17 05:09 Sodium 140 Potassium 3.6 Chloride 95 L Carbon Dioxide 42 H* BUN 21 H Creatinine 0.62 Glucose 113 H Calcium 9.5 Liver Function 04/20/17 Range/Units 05:09 Total Bilirubin 0.4 (0.3-1.0) mg/dL AST 7 L (13-39) Units/L ALT 6 L (7-52) Units/L Alkaline Phosphatase 70 (34-104) Units/L Albumin 3.6 (3.5-5.7) g/dL - ABG Interpretation ABG results: ABG ABG pH 7.44 pH Units (7.32-7.45) 04/17/17 13:34 ABG pCO2 53 mmHg (35-45) H 04/17/17 13:34 ABG pO2 65 mmHg (85-104) L 04/17/17 13:34 ABG O2 Saturation 93 % (95-98) L 04/17/17 13:34 Consult Discharge Plan - Plan Referrals: Javier Reyes MD [Primary Care Provider] - <Dieudonne Vázquez - Last Filed: 04/20/17 16:54> Date of Encounter: 04/20/17 - Assessment and plan (1) Acute and chronic respiratory failure Current Visit: Yes Status: Acute Qualifiers: Respiratory failure complication: hypoxia and hypercapnia Qualified Code(s) : J96.21 - Acute and chronic respiratory failure with hypoxia; J96.22 - Acute and chronic respiratory failure with hypercapnia; J96.22 - Acute and chronic respiratory failure with hypercapnia; J96.22 - Acute and chronic respiratory failure with hypercapnia (2) Acute exacerbation of chronic obstructive airways disease Current Visit: Yes Status: Acute (3) Coronavirus infection Current Visit: Yes Status: Acute (4) Tobacco abuse Current Visit: Yes Status: Acute (5) Depression, major, recurrent, in remission Current Visit: No Status: Chronic - Constitutional Vitals: Temp Pulse Resp BP Pulse Ox 97.8 F 73 14 159/85 92 04/20/17 14:49 04/20/17 14:49 04/20/17 15:58 04/20/17 14:49 04/20/17 15:58 Internal Medicine: Result - Labs CBC & Chem 7: 04/20/17 05:09 04/20/17 05:09 Labs: Short CBC 04/20/17 Range/Units 05:09 WBC 9.6 (4.3-11.1) K/mcL Hgb 11.2 L (11.5-15.4) g/dL Hct 37.3 (35.3-44.9) % Plt Count 233 (140-400) K/mcL Neutrophils # 8.9 (1.6-8.9) K/mcL BMP 04/20/17 05:09 Sodium 140 Potassium 3.6 Chloride 95 L Carbon Dioxide 42 H* BUN 21 H Creatinine 0.62 Glucose 113 H Calcium 9.5 Liver Function 04/20/17 Range/Units 05:09 Total Bilirubin 0.4 (0.3-1.0) mg/dL AST 7 L (13-39) Units/L ALT 6 L (7-52) Units/L Alkaline Phosphatase 70 (34-104) Units/L Albumin 3.6 (3.5-5.7) g/dL - ABG Interpretation ABG results: ABG ABG pH 7.44 pH Units (7.32-7.45) 04/17/17 13:34 ABG pCO2 53 mmHg (35-45) H 04/17/17 13:34 ABG pO2 65 mmHg (85-104) L 04/17/17 13:34 ABG O2 Saturation 93 % (95-98) L 04/17/17 13:34 - Attending Attestation I examined this patient and my medical decision-making was reviewed with the Resident Physician on 04/20/17. I agree with the documented findings, disposition and treatment plan as described except to the extent set forth below. Ms Mcdonough is currently admitted for resp failure, COPD exac. She is positive for coronavirus. She remains moderate to high risk due to potential for worsening clinical status. Ms Mcdonough is breathing a little better but still congested and coughing. RIP positive for coronavirus. No fever. Can't get much sputum up. No GI issues. Exam alert. Mod resp distress with cough Mucus membranes dry Heart reg Diffuse end exp wheeze and rales Abd soft I/P 1. Resp failure 2. Coronavirus Further diagnoses and plan as above.
--- NOTE | 2017-04-20 16:46 | Electrocardiograph Report ---
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
[2017-04-21] MEDS: Ipratropium/Albuterol Neb 3 ML IH SCH ×4 (03:40→16:23)
[2017-04-21] MEDS: *HR* Heparin 5,000 UNIT/ML VIAL SQ SCH (06:34)
[2017-04-21 08:07] LABS: Hematocrit 36.3 % (35.3-44.9); Hemoglobin 11.4 g/dL (11.5-15.4); Immature Granulocytes % 0.6 % (0-4); Lymphocytes # 0.5 K/mcL (0.6-4.6); Lymphocytes % 8.8 %; Mean Corpuscular HGB Conc 31.4 g/dL (31.6-35.5); Mean Corpuscular Hemoglobin 28.5 pg (28.0-33.3); Mean Corpuscular Volume 90.8 fL (83.0-100.0); Monocytes # 0.2 K/mcL (0.0-1.3); Monocytes % 3.3 %; Neutrophils # 4.5 K/mcL (1.6-8.9); Platelet Count 199 K/mcL (140-400); Red Cell Distribution Width 13.1 % (11.5-14.5); Segmented Neutrophils % 87.3 %
[2017-04-21 08:56] LABS: BUN/Creatinine Ratio 33 (6-26); Blood Urea Nitrogen 22 mg/dL (6-20); Calcium 9.1 mg/dL (8.6-10.3); Carbon Dioxide 44 mEq/L (23-29); Chloride 91 mEq/L (98-107); Glucose 124 mg/dL (70-105); Osmolality,Calculated 291 (280-300); Potassium 3.4 mEq/L (3.5-5.1); Sodium 138 mEq/L (136-145); eGFR For African Americans > 60 (> 60); eGFR For Non-African Americans > 60 (> 60)
[2017-04-21] MEDS: Aspirin 81 MG TAB.CHEW PO SCH (09:36)
[2017-04-21] MEDS: ALPRAZolam 1 MG TABLET PO SCH (09:36)
[2017-04-21] MEDS: Azithromycin 250 MG TABLET PO SCH (09:36)
[2017-04-21] MEDS: Lisinopril-HCTZ 20-12.5mg TABLET PO SCH (09:36)
[2017-04-21] MEDS: ARIPiprazole 5 MG TABLET PO SCH (09:36)
[2017-04-21] MEDS: methylPREDNISolone 125 MG/2 ML VIAL IVP SCH (09:37)
[2017-04-21] MEDS ORDERED: cloNIDine HCl 0.1 MG TABLET PO PRN (10:03)
[2017-04-21 11:47] VITALS: BP 140/71
--- NOTE | 2017-04-21 13:41 | Discharge Summary ---
Date of Encounter: 04/21/17 Time of Encounter: 13:35 - Discharge Diagnosis (1) Acute and chronic respiratory failure Priority: Primary Status: Acute Comments: Acute on chronic hypoxic and hypercapnic respiratory failure secondary to acute COPD exacerbation due to coronavirus infection Qualifiers: Respiratory failure complication: hypoxia and hypercapnia Qualified Code(s) : J96.21 - Acute and chronic respiratory failure with hypoxia; J96.22 - Acute and chronic respiratory failure with hypercapnia; J96.22 - Acute and chronic respiratory failure with hypercapnia; J96.22 - Acute and chronic respiratory failure with hypercapnia (2) Acute exacerbation of chronic obstructive airways disease Priority: Primary Status: Acute (3) Coronavirus infection Priority: Primary Status: Acute (4) Elevated troponin Priority: Secondary Status: Acute Comments: Secondary to demand ischemia (5) Tobacco abuse counseling Priority: Secondary Status: Acute - Discharge Medications Prescriptions: predniSONE [PredniSONE] 10 mg PO DAILY 20 Days tablet Home Medications: ALPRAZolam [Xanax 1 MG Tablet] 1 mg PO TID 06/05/16 [History] Aripiprazole [Abilify] 5 mg PO DAILY 06/05/16 [History] Atorvastatin [Lipitor] 40 mg PO HS 06/05/16 [History] Lisinopril/Hydrochlorothiazide [Zestoretic 20-12.5 mg Tablet] 1 each PO DAILY [History] Metoprolol [Lopressor] 25 mg PO BID 06/05/16 [History] Paroxetine [Paxil] 30 mg PO DAILY 06/05/16 [History] cloNIDine HCl [CloNIDine HCl] 0.1 mg PO DAILY PRN 06/05/16 [History] Budesonide/Formoterol 160/4.5 [Symbicort 160/4.5] 2 puff IH BIDR 04/17/17 [ History] Ipratropium/Albuterol Neb [Duoneb] 3 ml IH Q6HR PRN 04/17/17 [History] Meloxicam [Mobic] 15 mg PO DAILY 04/17/17 [History] Oxybutynin Chloride [Ditropan Xl] 5 mg PO DAILY 04/17/17 [History] predniSONE [PredniSONE] 10 mg PO DAILY 20 Days tablet 04/21/17 [Rx] Allergies/Adverse Reactions: 3 Allergy/AdvReac Type Severity Reaction Status Date / Time No Known Allergies Allergy Verified 12/28/16 14:38 Procedures/tests Complete & Pending: Procedures Performed prior 72 hours Category Date Time Status ECG 12 lead ECG [ECG] Routine Y 04/18/17 19:29 Completed Date of admission: 04/17/17 08:16 Primary care physician: Javier Reyes MD Consults: 04/17/17 08:19 Consult to Measurement And Sensing Technician [CONS] Routine Reason for SW Consult: discharge planning 04/17/17 08:23 Consult to Cardiology [CONS] Routine Comment: Consulting Provider: Cardiology Nicky Reason for Consult: nstemi Time Notified: 08:23 Call Completed: Yes 04/17/17 08:26 Consult to Pulmonology [CONS] Routine Consulting Provider: Pulm Crit Care & Sleep Nicky Reason for Consult: severe copd with exercebation Time Notified: 08:26 Call Completed: Yes - Patient Status Disposition: Home, Self-Care Condition: Fair Overall status at discharge: patient is progressing back to baseline - Discharge Instructions Follow Up With: Javier Reyes MD [Primary Care Provider] - Additional Instructions: Follow-up with primary care physician within the next 7 days. Follow-up with pulmonary services within the next 1-2 weeks. Continue oxygen therapy. Quit smoking. Continue blood pressure medications. Prednisone taper as follows: 40 mg daily for 5 days, 30 mg for 5 days, 20 mg for 5 days and 10 mg for 5 days. - Diet and Activity Activity: increase activity as tolerated, wear oxygen at all times Diet: low fat, low cholesterol Hospital course: Ms. Mcdonough is a 56 year old female with history of very severe COPD oxygen dependent using 2 L at home FEV1 of 23%, hypertension, obesity, depression, hypertension, hyperlipidemia, tobacco abuse, patient presented to [facility] with 3 days of progressive worsening shortness of breath also chest pain she described as pressure last about 10-15 minutes and recurrent patient continued to smoke ABG showed a PCO2 of 86 and PO2 of 53 she was placed on BiPAP EKG was within normal limits , troponin was 0.165 on arrival. PH was 7.44, PCO2 53 and PO2 of 65 Patient was started on azithromycin, steroids. She was found to be positive for coronary virus. Completed 3 doses of azithromycin and is feeling much better. feeling much better and is stable to be discharged home. Was given the option to stay another night but prefers to go home. BP was in the 180s but was easily controlled. Needs to follow up with the pulmonary service to consider BiPAP qualification as outpatient Time spent discussing smoking cessation with patient: 3 to 10 minutes - Time Spent with Patient Total time spent providing and/or coordinating discharge services: Greater than 30 minutes (40 min) - Constitutional Vitals: Temp Pulse Resp BP Pulse Ox 98.0 F 67 14 140/71 98 04/21/17 11:45 04/21/17 11:45 04/21/17 11:45 04/21/17 11:45 04/21/17 11:45 General appearance: Present: cooperative, A&O X 3, no acute distress - Head Head exam: Present: atraumatic, normocephalic - Eye Eye exam: Present: PERRL, conjuntiva pink, sclera anicteric Pupils: Present: PERRL - Neck Neck exam general surgery: Present: supple, trachea midline. Absent: lymphadenopathy - Respiratory Respiratory exam: Present: decreased breath sounds, CTAB. Absent: accessory muscle use, rales, rhonchi, wheezes - Cardiovascular Cardiovascular exam: Present: RRR, +S1, +S2. Absent: diastolic murmur, gallop, rubs, systolic murmur - GI/Abdominal GI/Abdominal exam: Present: normal bowel sounds, soft, no peritoneal signs. Absent: distended, tenderness - Extremities Exam Extremities exam: Present: warm, radial pulses palpable and symmetrical. Absent : calf tenderness, cyanotic, pedal edema - Neurological Exam Neurological exam: Present: CN II-XII intact, oriented X3, no focal deficits. Absent: pronater drift, facial droop, speech deficit - Skin Skin exam: Present: dry, intact
--- NOTE | 2017-04-21 13:48 | Physician Discharge Referral ---
Home Health/Hosp Referral Info Transfer to: Home Health Provider in Charge Post Discharge: PCP - Diagnosis (1) Acute and chronic respiratory failure Status: Acute (2) Acute exacerbation of chronic obstructive airways disease Status: Acute (3) Coronavirus infection Status: Acute (4) Elevated troponin Status: Acute (5) Tobacco abuse counseling Status: Acute - Respiratory Orders Oxygen / L per min (2) Smoking Cessation: Smoking cessation has been advised. For more information, call the [place] Tobacco Quit Line at 4-730-MTFU-NOW. - Diet/Nutrition Diet/Nutrition Orders: No Added Salt (LUZ) - Services Needed Following services are medically necessary services: Home Health Aide, Physical Therapy, Occupational Therapy Home Care Orders: Follow-up with primary care physician within the next 7 days. Follow-up with pulmonary services within the next 1-2 weeks. Continue oxygen therapy. Quit smoking. Continue blood pressure medications. Prednisone taper as follows: 40 mg daily for 5 days, 30 mg for 5 days, 20 mg for 5 days and 10 mg for 5 days. - Transfer Medications Prescriptions: predniSONE [PredniSONE] 10 mg PO DAILY 20 Days tablet Home Medications: ALPRAZolam [Xanax 1 MG Tablet] 1 mg PO TID 06/05/16 [History] Aripiprazole [Abilify] 5 mg PO DAILY 06/05/16 [History] Atorvastatin [Lipitor] 40 mg PO HS 06/05/16 [History] Lisinopril/Hydrochlorothiazide [Zestoretic 20-12.5 mg Tablet] 1 each PO DAILY [History] Metoprolol [Lopressor] 25 mg PO BID 06/05/16 [History] Paroxetine [Paxil] 30 mg PO DAILY 06/05/16 [History] cloNIDine HCl [CloNIDine HCl] 0.1 mg PO DAILY PRN 06/05/16 [History] Budesonide/Formoterol 160/4.5 [Symbicort 160/4.5] 2 puff IH BIDR 04/17/17 [ History] Ipratropium/Albuterol Neb [Duoneb] 3 ml IH Q6HR PRN 04/17/17 [History] Meloxicam [Mobic] 15 mg PO DAILY 04/17/17 [History] Oxybutynin Chloride [Ditropan Xl] 5 mg PO DAILY 04/17/17 [History] predniSONE [PredniSONE] 10 mg PO DAILY 20 Days tablet 04/21/17 [Rx] Allergies/Adverse Reactions: 3 Allergy/AdvReac Type Severity Reaction Status Date / Time No Known Allergies Allergy Verified 12/28/16 14:38 Certification: Further, I certify that my clinical findings support that this patient is homebound (i.e. absences from home require considerable and taxing effort and are for medical reasons or orthodoxy services or infrequently or short duration when for other reasons) because: Homebound Reason: Patient requires assistance of a person or device to safely leave home Attestation: My signature below is to certify that this patient is under my care and that I, or nurse practitioner, or a physician's diagnostic assistant working with me, has a face-to -face encounter with this patient.
== END 2017-04-21 17:00 | disposition home or self-care (01) | DRG 140 ==
LOC: 2NENU → SUATTDRO 08:16
PROVIDERS: ADMIT Internal Medicine Hematology & Oncology; ATTEND Internal Medicine